=== PATIENT | female | born 1970 | race Caucasian/White ===

== ENCOUNTER → 2017-04-12 08:13 | Outpatient (CLI) | payer OTHER, SELFPAY ==
[2017-04-12 09:28] LABS: Hemoglobin A1c 5.9 % (4.2-6.3)
== END ==
PROVIDERS: Family Provider Internal Medicine; PCP Internal Medicine; Visit Provider Internal Medicine
DX: E53.8 Deficiency of other specified B group vitamins (principal); R73.02 Impaired glucose tolerance (oral)
CPT/HCPCS: 36415; 83036

== ENCOUNTER → 2017-09-20 09:34 | Outpatient (CLI) | payer OTHER, SELFPAY ==
[2017-09-20 10:20] LABS: Absolute Lymphocyte Count 1.93 X10^3/ul (0.83-4.51); Absolute Neutrophil Count 5.5 X10^3/uL (2.0-7.7); Basophil# 0.02 X10^3/uL; Basophil% 0.2 % (0-1); Eosinophil# 0.15 X10^3/uL; Eosinophils% 1.8 % (0-5); Hematocrit 41.6 % (37-47); Hemoglobin 14.6 g/dl (12.0-15.0); Lymphocyte # 1.93 X10^3/ul (4.0); Lymphocyte % 23.8 % (19-41); Mean Corp Hgb Conc 35.1 g/gl (32-36); Mean Corpuscular Hgb 30.6 pg (27.0-32.0); Mean Corpuscular Volume 87.2 fL (81-99); Mean Platelet Vol. 10.5 fl (6.2-12.0); Monocyte# 0.45 X10^3/uL; Monocyte% 5.5 % (0-10); Neutrophil # 5.54 X10^3/uL (2.7-7.7); Neutrophil % 68.5 % (47-70); Platelet Count 277 K/mm3 (150-450); RBC Distribution Width SD 40.2 fl (35.1-43.9); Red Blood Count 4.77 M/mm3 (4.2-5.4); White Blood Count 8.1 K/mm3 (4.4-11.0)
[2017-09-20 10:24] LABS: POSITIVE COUNT NO; POSITIVE DIFFERENTIAL NO; POSITIVE MORPHOLOGY NO
[2017-09-20 10:40] LABS: Microalbumin,Random Urine 16.8 mg/L (NO RANGE EST.); Microalbumin:Creatinine Ratio 19.9 mg/g CRE (<30 mg/g CRE)
[2017-09-20 10:53] LABS: ALB/GLOB Ratio 0.9 RATIO (0.9-2.4); AST(SGOT) 13 U/L (15-37); Alanine Aminotransfer ALT/SGPT 26 U/L (13-56); Albumin, Serum 3.9 g/dL (3.2-5.0); Alkaline Phosphatase 63 U/L (45-117); Anion Gap 7 (5-15); BUN 13 mg/dL (7-18); BUN/Creat Ratio 15.4 RATIO (10-20); Chloride 105 mmol/L (98-107); Cholesterol 182 mg/dL (200); Creatinine, Serum 0.85 mg/dL (0.55-1.02); EST Glomerular Filtration Rate 77 mL/min (>60); Est Glom Filt Rate - Afr Amer 93 mL/min (>60); Globulin 4.2 g/dL (2.2-4.2); Glucose 122 mg/dL (74-106); High Density Lipoprotein 48 mg/dL; Protein, Total 8.1 g/dL (6.4-8.2); Sodium Level 138 mmol/L (136-145); Triglycerides 98 mg/dL; Very Low Density Lipoprotein 20 mg/dL (5-40)
== END ==
PROVIDERS: Family Provider Internal Medicine; PCP Internal Medicine; Visit Provider Internal Medicine
DX: R73.03 Prediabetes (principal); E04.1 Nontoxic single thyroid nodule; Z13.220 Encounter for screening for lipoid disorders
CPT/HCPCS: 36415; 80053; 80061; 82043; 82570; 84443; 85025

== ENCOUNTER → 2017-10-11 08:23 | Outpatient (CLI) | payer OTHER, SELFPAY | PROVIDERS: Family Provider Internal Medicine; PCP Internal Medicine; Visit Provider Internal Medicine | DX: R73.02 Impaired glucose tolerance (oral) (principal); E53.8 Deficiency of other specified B group vitamins; E55.9 Vitamin D deficiency, unspecified ==

== ENCOUNTER → 2018-01-09 09:13 | Outpatient (CLI) | payer OTHER, SELFPAY ==
[2018-01-09 09:43] LABS: Absolute Lymphocyte Count 1.99 X10^3/ul (0.83-4.51); Absolute Neutrophil Count 5.3 X10^3/uL (2.0-7.7); Basophil# 0.02 X10^3/uL; Basophil% 0.2 % (0-1); Eosinophil# 0.21 X10^3/uL; Eosinophils% 2.6 % (0-5); Hematocrit 40.6 % (37-47); Hemoglobin 14.1 g/dl (12.0-15.0); Lymphocyte # 1.99 X10^3/ul (4.0); Lymphocyte % 24.7 % (19-41); Mean Corp Hgb Conc 34.7 g/gl (32-36); Mean Corpuscular Hgb 30.5 pg (27.0-32.0); Mean Corpuscular Volume 87.7 fL (81-99); Mean Platelet Vol. 10.3 fl (6.2-12.0); Monocyte# 0.53 X10^3/uL; Monocyte% 6.6 % (0-10); Neutrophil # 5.28 X10^3/uL (2.7-7.7); Neutrophil % 65.7 % (47-70); Platelet Count 276 K/mm3 (150-450); Red Blood Count 4.63 M/mm3 (4.2-5.4); White Blood Count 8.1 K/mm3 (4.4-11.0)
[2018-01-09 09:45] LABS: POSITIVE COUNT NO; POSITIVE DIFFERENTIAL NO; POSITIVE MORPHOLOGY NO
[2018-01-09 09:54] LABS: Microalbumin,Random Urine 5.4 mg/L (NO RANGE EST.); Microalbumin:Creatinine Ratio 9.5 mg/g CRE (<30 mg/g CRE)
[2018-01-09 10:12] LABS: Vitamin B12 549 pg/mL (211-911); Vitamin D,25 Hydroxy 25.1 ng/mL (29.95-100.01)
[2018-01-09 10:14] LABS: Hemoglobin A1c 6.3 % (4.2-6.3)
[2018-01-09 10:18] LABS: ALB/GLOB Ratio 0.9 RATIO (0.9-2.4); AST(SGOT) 8 U/L (15-37); Alanine Aminotransfer ALT/SGPT 22 U/L (13-56); Albumin, Serum 3.5 g/dL (3.2-5.0); Alkaline Phosphatase 63 U/L (45-117); Anion Gap 12 (5-15); BUN 9 mg/dL (7-18); BUN/Creat Ratio 11.6 RATIO (10-20); Calcium,Total 8.5 mg/dL (8.5-10.1); Chloride 105 mmol/L (98-107); Cholesterol 174 mg/dL (200); Creatinine, Serum 0.78 mg/dL (0.55-1.02); EST Glomerular Filtration Rate 85 mL/min (>60); Est Glom Filt Rate - Afr Amer 103 mL/min (>60); Globulin 3.7 g/dL (2.2-4.2); Glucose 108 mg/dL (74-106); High Density Lipoprotein 55 mg/dL; Potassium 3.9 mmol/L (3.5-5.1); Protein, Total 7.2 g/dL (6.4-8.2); Sodium Level 142 mmol/L (136-145); Thyroid Stim Hormone (TSH) 2.15 uIU/mL (0.358-3.74); Triglycerides 94 mg/dL; Very Low Density Lipoprotein 19 mg/dL (5-40)
== END ==
PROVIDERS: Family Provider Internal Medicine; PCP Internal Medicine; Referring Provider Internal Medicine; Visit Provider Internal Medicine
DX: E04.1 Nontoxic single thyroid nodule (principal); R73.03 Prediabetes; R73.02 Impaired glucose tolerance (oral); E55.9 Vitamin D deficiency, unspecified; E53.8 Deficiency of other specified B group vitamins; Z13.220 Encounter for screening for lipoid disorders
CPT/HCPCS: 36415; 80053; 80061; 82043; 82306; 82570; 82607; 83036; 84443; 85025

== ENCOUNTER → 2018-06-14 08:03 | Outpatient (CLI) | payer OTHER, SELFPAY ==
[2018-06-14 08:51] LABS: Absolute Lymphocyte Count 1.98 X10^3/ul (0.83-4.51); Absolute Neutrophil Count 3.5 X10^3/uL (2.0-7.7); Basophil# 0.02 X10^3/uL; Basophil% 0.3 % (0-1); Eosinophil# 0.24 X10^3/uL; Eosinophils% 3.8 % (0-5); Hematocrit 40.9 % (37-47); Hemoglobin 14.3 g/dl (12.0-15.0); Lymphocyte # 1.98 X10^3/ul (4.0); Lymphocyte % 31.7 % (19-41); Mean Corpuscular Hgb 30.3 pg (27.0-32.0); Mean Corpuscular Volume 86.7 fL (81-99); Mean Platelet Vol. 10.2 fl (6.2-12.0); Monocyte# 0.45 X10^3/uL; Monocyte% 7.2 % (0-10); Neutrophil # 3.54 X10^3/uL (2.7-7.7); Neutrophil % 56.8 % (47-70); POSITIVE COUNT NO; POSITIVE DIFFERENTIAL NO; POSITIVE MORPHOLOGY NO; Platelet Count 250 K/mm3 (150-450); RBC Distribution Width CV 12.9 % (11.6-14.6); RBC Distribution Width SD 41.3 fl (35.1-43.9); Red Blood Count 4.72 M/mm3 (4.2-5.4); White Blood Count 6.2 K/mm3 (4.4-11.0)
[2018-06-14 09:07] LABS: Microalbumin,Random Urine < 5.0 mg/L (NO RANGE EST.)
[2018-06-14 09:11] LABS: Hemoglobin A1c 5.8 % (4.2-6.3)
[2018-06-14 09:12] LABS: ALB/GLOB Ratio 1.2 RATIO (0.9-2.4); AST(SGOT) 15 U/L (15-37); Alanine Aminotransfer ALT/SGPT 35 U/L (13-56); Albumin, Serum 4.1 g/dL (3.2-5.0); Alkaline Phosphatase 46 U/L (45-117); Anion Gap 7 (5-15); BUN 15 mg/dL (7-18); BUN/Creat Ratio 19.1 RATIO (10-20); Calcium,Total 9.1 mg/dL (8.5-10.1); Chloride 106 mmol/L (98-107); Creatinine, Serum 0.79 mg/dL (0.55-1.02); EST Glomerular Filtration Rate 83 mL/min (>60); Est Glom Filt Rate - Afr Amer 101 mL/min (>60); Globulin 3.5 g/dL (2.2-4.2); Glucose 116 mg/dL (74-106); Protein, Total 7.6 g/dL (6.4-8.2); Sodium Level 141 mmol/L (136-145)
[2018-06-14 09:20] LABS: Vitamin B12 > 2000 pg/mL (211-911); Vitamin D,25 Hydroxy 44.6 ng/mL (29.95-100.01)
[2018-06-15 20:07] LABS: CHOLESTEROL TOTAL 211 mg/dL (100-199); HDL-C 55 mg/dL (>39); HDL-P TOTAL 36.4 umol/L (>=30.5); SMALL LDL-P 1267 nmol/L (<=527); TRIGLYCERIDES 132 mg/dL (0-149)
[2018-06-16 12:30] LABS: INSULIN RESISTANCE SCORE 75 (<=45); LDL SIZE 20.6 nm (>20.5); LDL-C 130 mg/dL (0-99); LDL-P 2008 nmol/L (<1000)
== END ==
PROVIDERS: Family Provider Internal Medicine; PCP Internal Medicine; Referring Provider Internal Medicine; Visit Provider Internal Medicine
DX: E11.9 Type 2 diabetes mellitus without complications (principal); E53.8 Deficiency of other specified B group vitamins; E55.9 Vitamin D deficiency, unspecified
CPT/HCPCS: 36415; 80053; 80061; 82043; 82306; 82570; 82607; 83036; 83704; 85025

== ENCOUNTER → 2018-06-20 10:35 | Outpatient (CLI) | payer OTHER, SELFPAY ==
--- NOTE | 2018-06-20 10:38 | US_ITS ---
STUDY: THYROID ULTRASOUND REASON FOR EXAM: Female, 47 years old. Follow-up nodule TECHNIQUE: Ultrasound evaluation of the thyroid was performed with real-time and static quick-scale imaging. COMPARISON: Ultrasound thyroid 01/18/2017, 12/26/2015, 12/12/2013. FINDINGS: RIGHT LOBE: 5.5 x 1.5 x 1.8 cm. Echotexture and vascularity are normal. Lower pole sharply circumscribed hypoechoic 6 x 6 x 4 mm nodule. Minimal posterior acoustic enhancement. Generally solid features. On prior imaging of 2016, the nodule measured 5.1 x 3.3 x 5.5 mm. On the prior study of 2015 the nodule measured 5.0 x 3.4 x 4.8 mm. Slightly increased in size. Otherwise similar morphology. Perinodular vascular flow. LEFT LOBE: 4.8 x 1.6 x 1.3 cm. Echotexture and vascularity are normal. Lower pole sharply circumscribed hypoechoic nodule, solid features, 11 x 7 x 7 mm. On prior imaging of 2016, the nodule measured 9.2 x 5.6 x 6.8 mm. On prior imaging of 2015, the nodule measured 9.3 x 6.4 x 7.2 mm. Very minimal increase in size compared to prior imaging. Perinodular and intranodular vascular flow. ISTHMUS: The isthmus measures 4 mm, normal echotexture. US/Thyroid IMPRESSION: Solitary thyroid nodules within the right and the left gland. Each is hypoechoic with sharply circumscribed margins, oval shape. Each has very slightly increased in size compared to prior imaging of 2015. Based on the [place] [employer] Guidelines for assessment of thyroid nodules, each falls into the Intermediate Suspicion Pattern. Based on size criteria, the left-sided thyroid nodule greatest dimension exceeds 1 cm. Ultrasound guided FNA biopsy is recommended. Electronically Signed: Dwain Granado MD at 9:09 EDT Tel , Service support ,
== END ==
PROVIDERS: Family Provider Internal Medicine; PCP Internal Medicine; Referring Provider Internal Medicine; Visit Provider Internal Medicine
DX: E01.0 Iodine-deficiency related diffuse (endemic) goiter (principal)
CPT/HCPCS: 76536

== ENCOUNTER → 2018-07-05 11:43 | Outpatient (CLI) | payer OTHER, SELFPAY ==
--- NOTE | 2018-07-05 11:45 | RAD_ITS ---
HISTORY: right foot pain. COMPARISON: None FINDINGS: XR Foot Min 3 Views: Right. SOFT TISSUES: No acute findings. No radiopaque foreign body. BONES/JOINTS: No acute fracture or subluxation. Normal alignment. Moderate osteoarthritis first MTP joint. No destructive changes observed. Small bidirectional calcaneal spurs. RAD/Foot min 3 Views IMPRESSION: Degenerative changes. No acute fracture or dislocation. at 0422 Reported and signed by: Prince Davila MD Electronically Signed: Prince Davila, at 4:21 EDT Tel , Service support ,
== END ==
PROVIDERS: Family Provider Internal Medicine; PCP Internal Medicine; Referring Provider Podiatrist; Visit Provider Podiatrist
DX: M20.11 Hallux valgus (acquired), right foot (principal)
CPT/HCPCS: 73630

== ENCOUNTER → 2018-09-11 08:12 | Outpatient (CLI) | payer OTHER, SELFPAY ==
[2018-09-11 08:51] LABS: Hemoglobin A1c 5.4 % (4.2-6.3)
[2018-09-12 14:08] LABS: CHOLESTEROL TOTAL 181 mg/dL (100-199); HDL-C 47 mg/dL (>39); HDL-P TOTAL 35.9 umol/L (>=30.5); SMALL LDL-P 399 nmol/L (<=527); TRIGLYCERIDES 100 mg/dL (0-149)
[2018-09-12 15:01] LABS: INSULIN RESISTANCE SCORE 67 (<=45); LDL SIZE 20.7 nm (>20.5); LDL-C 114 mg/dL (0-99); LDL-P 1286 nmol/L (<1000)
== END ==
PROVIDERS: Family Provider Internal Medicine; PCP Internal Medicine; Referring Provider Internal Medicine; Visit Provider Internal Medicine
DX: E11.9 Type 2 diabetes mellitus without complications (principal); Z13.220 Encounter for screening for lipoid disorders
CPT/HCPCS: 36415; 80061; 83036; 83704

== ENCOUNTER → 2019-01-31 08:58 | Outpatient (CLI) | payer OTHER, SELFPAY ==
[2018-10-11 07:43] VITALS: BMI 37.5
[2019-01-31 09:04] LABS: Bacteria 0 SEEN /hpf (None Seen); Mucous, Urine 0 SEEN /hpf (<or=2+); White Blood Cells 0 SEEN /hpf (0-5)
[2019-01-31 10:15] LABS: Absolute Lymphocyte Count 2.23 X10^3/uL (0.83-4.51); Absolute Neutrophil Count 4.9 X10^3/uL (2.0-7.7); Basophil# 0.04 X10^3/uL; Basophil% 0.5 % (0-1); Eosinophil# 0.31 X10^3/uL; Eosinophils% 3.9 % (0-5); Hematocrit 43.7 % (37-47); Hemoglobin 14.6 g/dL (12.0-15.0); Lymphocyte # 2.23 X10^3/ul (4.0); Lymphocyte % 27.8 % (19-41); Mean Corp Hgb Conc 33.4 g/dL (32-36); Mean Corpuscular Hgb 29.8 pg (27.0-32.0); Mean Corpuscular Volume 89.2 fL (81-99); Mean Platelet Vol. 10.3 fl (6.2-12.0); Monocyte# 0.45 X10^3/uL; Monocyte% 5.6 % (0-10); NRBC Flagged by Analyzer 0 % (0-5); Neutrophil # 4.94 X10^3/uL (2.7-7.7); Neutrophil % 61.7 % (47-70); Platelet Count 293 K/mm3 (150-450); RBC Distribution Width CV 12.7 % (11.6-14.6); RBC Distribution Width SD 41.2 fl (35.1-43.9)
[2019-01-31 10:25] LABS: Color, Urine Yellow (Yellow); Glucose, Dipstick Normal (Normal); Ketone-Dipstick Negative (Negative); Leukocyte Esterase-Dipstick Negative /ul (Negative); Nitrite-Dipstick Negative (Negative); Occult Blood-Urine 10 /ul (Negative); Protein-Dipstick Negative (Negative); Specific Gravity, Urine 1.015 (1.002-1.030); Urine Bilirubin Dipstick Negative (Negative); Urine Clarity Clear (Clear); Urine Urobilinogen Normal (Normal)
[2019-01-31 10:39] LABS: Red Blood Cells-Urine 0-5 SEEN /hpf (0-5); Squamous Epithelial Cells - UA 0-5 SEEN /hpf (5-10)
[2019-01-31 10:46] LABS: Vitamin B12 542 pg/mL (211-911)
[2019-01-31 11:09] LABS: Microalbumin,Random Urine 5.3 mg/L (NO RANGE EST.); Microalbumin:Creatinine Ratio 8.8 mg/g CRE (<30 mg/g CRE)
[2019-01-31 11:21] LABS: ALB/GLOB Ratio 1.1 RATIO (0.9-2.4); AST(SGOT) 10 U/L (15-37); Alanine Aminotransfer ALT/SGPT 25 U/L (13-56); Albumin, Serum 3.9 g/dL (3.2-5.0); Alkaline Phosphatase 69 U/L (45-117); Anion Gap 8 (5-15); BUN 16 mg/dL (7-18); BUN/Creat Ratio 18.6 RATIO (10-20); Calcium,Total 8.8 mg/dL (8.5-10.1); Chloride 104 mmol/L (98-107); Creatinine, Serum 0.86 mg/dL (0.55-1.02); EST Glomerular Filtration Rate 75 mL/min (>60); Est Glom Filt Rate - Afr Amer 91 mL/min (>60); Free T3 3.2 pg/mL (2.18-3.98); Globulin 3.6 g/dL (2.2-4.2); Glucose 108 mg/dL (74-106); Potassium 4.2 mmol/L (3.5-5.1); Protein, Total 7.5 g/dL (6.4-8.2); Sodium Level 138 mmol/L (136-145); T4 Free Direct 1.02 ng/dL (0.76-1.46); Thyroid Stim Hormone (TSH) 1.18 uIU/mL (0.358-3.74)
[2019-02-01 16:07] LABS: CHOLESTEROL TOTAL 186 mg/dL (100-199); HDL-C 68 mg/dL (>39); HDL-P TOTAL 46.5 umol/L (>=30.5); SMALL LDL-P 457 nmol/L (<=527); TRIGLYCERIDES 103 mg/dL (0-149)
[2019-02-02 16:39] LABS: INSULIN RESISTANCE SCORE 51 (<=45); LDL-C 97 mg/dL (0-99); LDL-P 1106 nmol/L (<1000)
== END ==
PROVIDERS: Family Provider Internal Medicine; PCP Internal Medicine; Referring Provider Internal Medicine; Visit Provider Internal Medicine
DX: E53.8 Deficiency of other specified B group vitamins (principal); E55.9 Vitamin D deficiency, unspecified; E04.1 Nontoxic single thyroid nodule; R73.01 Impaired fasting glucose
CPT/HCPCS: 36415; 80053; 80061; 81001; 82043; 82306; 82570; 82607; 83036; 83704; 84439; 84443; 84481; 85025

== ENCOUNTER 2019-02-23 06:06 | Day surgery (SDC) | payer OTHER, SELFPAY ==
[2018-10-11 07:43] VITALS: BMI 37.5
[2019-02-23] VITALS (7 sets, daily range): BP systolic 101–118; BP diastolic 66–77; PULSE 76–85; RESP 16; TEMP 36.1–36.8; O2SAT 95–100; BMI 36.1
[2019-02-23] MEDS: Lactated Ringers 1,000 ML 100 ML IV (06:33)
--- NOTE | 2019-02-23 07:22 | HP.PCM_ITS ---
Problem List (1) Bunion of right foot Status: Acute History of Present Illness Date of Admission: 02/23/19 The patient is a 48 year old F who is know to me from my private office where she complained of painful arthritic big toe joint. She had tried all conservative treatments including change in shoes, padding, NSAIDs, etc. No improvement. Past Medical History Medical History: Medical History (Last Reviewed 10/11/18 @ 07:51 by Hari Krueger MD) Diabetes E11.9 Multinodular goiter E04.2 Allergies No Known Allergies Allergy (Verified 02/23/19 06:16) Home Medications: Ambulatory Orders Medication Instructions Recorded Multivitamins,Therapeutic 1 tab PO DAILY 01/18/13 [Multivitamin] metformin 500 mg tablet 1,000 mg PO DAILY tab 10/11/18 Cholecalciferol (Vitamin D3) 5,000 unit PO DAILY 02/19/19 [Vitamin D3] Surgical History: Surgical History (Last Reviewed 10/11/18 @ 07:51 by Hari Krueger MD) History of Z98.891 history uterine ablation Smoking Status: Never smoker Tobacco Use: Non-smoker VTE Information - Inpt Only VTE Present on Admission: No Reason prophylaxis not ordered:: Treatment Not Indicated Patient Problems: Active and Suspected Problems (Last Reviewed 10/11/18 @ 07:51 by Hari Krueger MD) Bunion of right foot (Acute) Subjective: Pt complains of painful bunion which was not responsive to conservative treatments. Pt notices she cannot move the big toe and there is a large lump, making it painful in shoes. Objective: Decreased ROM to right first MTPJ with large dorsal exostosis. Pain is present. - Physical Exam Vitals/I&O's: Vital Signs Temp Pulse Resp BP Pulse Ox 97.6 F L 78 16 117/66 100 02/23/19 06:21 02/23/19 06:21 02/23/19 06:21 02/23/19 06:21 02/23/19 06:21 Oxygen Delivery Method Room Air Weight: 89.5 kg Body Mass Index (BMI) 36.1 General: Oriented x3, Cooperative, No apparent distress Extremities: Peripheral Pulses Normal Skin: No rashes, No breakdown Musculoskeletal: - - Mild bunion to right foot with moderate dorsal exostosis and decreased ROM to right first MTPJ. Pain is present. Neurological: Sensory exam intact to light touch and pain Current Medications Cefazolin Sodium 2 gm/ Sodium (Chloride) 110 mls @ 150 mls/hr IV PREOP ONE Stop: 02/23/19 07:58 Lactated Ringer's () 1,000 mls @ 100 mls/hr IV .Q10H SONAM Last Admin: 02/23/19 06:33 Dose: 100 mls/hr Documented by: Assessment/Plan All Active Problems (Last Reviewed 10/11/18 @ 07:51 by Hari Krueger MD) Bunion of right foot (Acute) 1. painful hallux valgus deformity right foot 2. hallux rigidus right foot Plan: After conservative measures have failed, pt wished to consider surgery. Risks, complications, alternative treatments were reviewed in detail. No guarantees given. Consent was reviewed and signed and pt is to present to [facility] for outpatient surgical intervention on 02/23/19.
[2019-02-23] MEDS: Cefazolin 2 GM in 0.9% Normal Saline 100 ML IV (07:30)
--- NOTE | 2019-02-23 07:30 | RAD_ITS ---
STUDY: X-RAY - RIGHT FOOT CLINICAL: Female, 48 years old. BUNIONECTOMY RIGHT FOOT IN OR with mini cram. -- 2 IMAGES 1 DOSE SUMMARY -- 0.0344 mGy 8 sec fluoro time TECHNIQUE: 2 intraoperative view(s) of the foot. COMPARISON: None. FINDINGS: Intraoperative imaging provided for bunionectomy. RAD/Foot 2 Views IMPRESSION: Intraoperative imaging provided for bunionectomy. Electronically Signed: Breezy Valles, at 9:33 EST , Service support ,
[2019-02-23] MEDS: Bacitracin 500 UNITS/GM PACKET (08:40)
--- NOTE | 2019-02-23 09:11 | PCM.OPRPT ---
Problem List (1) Bunion of right foot Status: Acute Report of Operation Date of Procedure: 02/23/19 Pre-Operative Diagnosis: Painful hallux valgus and hallux rigidus right foot Post-Operative Diagnosis: same Surgery/Procedure Performed:: sarah bunionectomy right foot Description of Surgical Findings:: Moderate hypertrophic bone to dorsal first MTPJ with cartilage denuding. Type of Anesthesia:: General/Regional - popliteal and saphenous nerve block Anesthesiologist: Isac Wynn Specimen's removed: bone Drains: none Estimated Blood Loss (mL): minimal Description of Procedure: Pt was brought to the OR and place on the operating table in the supine position. A pneumatic ankle tourniquet was placed on the pt's right ankle. Following sedation and local popliteal and saphenous block, the foot was scrubbed, prepped, and draped in the usual aspectic fashion. Attention was then taken to the dorsal medial right foot where approximately 6cm linear longitudinal incision was made medial and parallel to the extensor hallucis longus tendon. The incision was deepened through sharp and blunt dissection down to the level of the first met phalangeal joint. Then, a T type of capsulotomy was performed. There was noted to be moderate bone build up with a 1cm joint mouse. Utilizing a rongeur, the excessive bone was removed. The bone was yellowish showing cystic formation from chronic DJD. Next, attention was directed to the first intermetatarsal space where blunt dissection was continued down to the fibular sesamoid apparatus. A longitudinal capsulotomy was performed to loosen the sesamoid. Adductor hallucis tendon was left intact. Then medially, with a sagittal saw, the medial met head was smoothed as the geovanny prominence was reduced. A V type osteotomy with apex pointing distally and arms pointing proximal dorsally and proximal plantarly was performed at the first met head. With the position of the tibial sesamoid being more medially, the capital fragment was only shifted about 1mm. This osteotomy serves to shorten the first ray to allow for more joint motion. A .054 inch K wire was then driven for fixation oriented proximal medial dorsally to distal plantar laterally. The pin was noted to not protrude into the joint space. This was confirmed by intra operative C arm. The first met head area was then smoothed with a bone rasp. The wound was flushed with copious amounts of NSS. A medial capsulorraphy was then performed as about 2mm of capsule was removed. The periosteal and capsular structures were then reapproximated and coapted utilizing 3-0 vicryl sutures. The subcutaneous tissues were also reapproximated and coapted with 3-0 vicryl sutures. The skin was reapproximated and coapted with 4-0 monocryl. The proximal portion of the K wire was bent, trimmed, and rotated. The pin site was dressed with Bacitracin ointment. Steri strips helped to reinforce the incision. The incision was then dressed with xeroform and a sterile compressive dressing consisting of 4x4's, devon, and kerlix. Pin site was protected with more gauze. A 4 kam wrap was applied and the ankle tourniquet was released. A prompt hyperemic response was seen to all digits of the right foot. The pt tolerated the procedure and anesthesia well. She was transferred to the recover room with vital signs stable and vascular status intact to all digits of the right foot. A period of post operative monitoring will be performed and she will then be discharged home. She is to keep the dressing clean, dry, intact, wearing surgical shoe during ambulation. Remain NWB during ambulation with crutches or knee walker. Take pain medication as directed. Follow in Dr. Herndon's office or all post operative care and with any complications. Grafts/Implants Used: .054 K wire percutaneous - Complications none - Admit VTE Documentation VTE Present on Admission: No VTE Pharm Prophylaxis ordered?: No Reason prophylaxis not ordered:: Treatment Not Indicated
== END 2019-02-23 10:33 | disposition home or self-care (01) ==
LOC: SDC 06:06 → AC 06:08
PROVIDERS: Family Provider Internal Medicine; PCP Internal Medicine; Referring Provider Podiatrist; Visit Provider Podiatrist
PROC: (CPT 28292; principal; 2019-02-23 07:15)
DX: M21.611 Bunion of right foot (principal); M20.11 Hallux valgus (acquired), right foot; M20.21 Hallux rigidus, right foot; E11.9 Type 2 diabetes mellitus without complications; E04.2 Nontoxic multinodular goiter; Z79.84 Long term (current) use of oral hypoglycemic drugs
CPT/HCPCS: 28296; 73620; 76000; J7120; J2405

== ENCOUNTER → 2019-03-19 10:40 | Outpatient (CLI) | payer OTHER, SELFPAY ==
[2019-02-23 06:21] VITALS: BMI 36.1
--- NOTE | 2019-03-19 10:43 | RAD_ITS ---
STUDY: X-RAY - RIGHT FOOT CLINICAL: Postoperative for hallux valgus. TECHNIQUE: 3 view(s) of the foot. COMPARISON: Intraoperative images 02/23/2019. FINDINGS: There are posterior and plantar calcaneal enthesophytes. Otherwise, unremarkable talus, calcaneus, and tarsal bones. Normal visualized subtalar, talonavicular, calcaneocuboid, tarsal and tarsometatarsal articulations. There is an osteotomy of the first distal metatarsal bridged with a K wire. There are small marginal osteophytes and joint space narrowing of the metatarsophalangeal joint of the great toe. Normal tibial and fibular sesamoid bones. Normal interphalangeal joint of the great toe. Normal phalanges of the great toe. Normal second through fifth metatarsophalangeal joints. Normal interphalangeal joints and phalanges of the lesser toes. The soft tissue structures are unremarkable. RAD/Foot min 3 Views IMPRESSION: Arthrosis of the first metatarsophalangeal joint. Uncomplicated postoperative changes of the distal first metatarsal. Calcaneal enthesopathy. Electronically Signed: Bola Albarado MD at 14:10 EST Tel , Service support ,
== END ==
PROVIDERS: PCP Internal Medicine; Referring Provider Podiatrist; Visit Provider Podiatrist
DX: M20.11 Hallux valgus (acquired), right foot (principal)
CPT/HCPCS: 73630

== ENCOUNTER → 2019-04-03 12:02 | Outpatient (CLI) | payer OTHER, SELFPAY ==
[2019-02-23 06:21] VITALS: BMI 36.1
--- NOTE | 2019-04-03 12:15 | RAD_ITS ---
STUDY: X-RAY - RIGHT FOOT CLINICAL: Female, 48 years old. right foot pain, had surgery on foot 5 weeks ago TECHNIQUE: 3 view(s) of the foot. COMPARISON: 3 every 2019 FINDINGS: There is no acute fracture or dislocation. There are mild degenerative changes in the first metatarsophalangeal joints and pes planus. There is healing distal metatarsal osteotomy. K wire has been removed. Soft tissues are unremarkable. Appearance is similar to prior. RAD/Foot min 3 Views IMPRESSION: Expected healing of first distal metatarsal osteotomy. Electronically Signed: Yani Mancuso, at 20:10 EST Tel , Service support ,
== END ==
PROVIDERS: PCP Internal Medicine; Referring Provider Podiatrist; Visit Provider Podiatrist
DX: M79.671 Pain in right foot (principal)
CPT/HCPCS: 73630

== ENCOUNTER → 2019-10-15 10:10 | Outpatient (CLI) | payer OTHER, SELFPAY ==
[2019-02-23 06:21] VITALS: BMI 36.1
[2019-10-15 10:51] LABS: Basophil% 0.5 % (0-1); Eosinophils% 2.8 % (0-5); Hematocrit 41.5 % (37-47); Hemoglobin 13.9 g/dL (12.0-15.0); Lymphocyte % 28.9 % (19-41); Mean Corp Hgb Conc 33.5 g/dL (32-36); Mean Corpuscular Hgb 30.1 pg (27.0-32.0); Mean Corpuscular Volume 89.8 fL (81-99); Mean Platelet Vol. 10.2 fl (6.2-12.0); Microalbumin,Random Urine 6.2 mg/L (NO RANGE EST.); Microalbumin:Creatinine Ratio 13.8 mg/g CRE (<30 mg/g CRE); Monocyte% 4.9 % (0-10); Neutrophil % 62.5 % (47-70); Platelet Count 247 K/mm3 (150-450); RBC Distribution Width CV 12.8 % (11.6-14.6); RBC Distribution Width SD 41.4 fl (35.1-43.9); Red Blood Count 4.62 M/mm3 (4.2-5.4); White Blood Count 7.8 K/mm3 (4.4-11.0)
[2019-10-15 10:52] LABS: Absolute Lymphocyte Count 2.24 X10^3/uL (0.83-4.51); Absolute Neutrophil Count 4.8 X10^3/uL (2.0-7.7)
[2019-10-15 11:08] LABS: Vitamin B12 696 pg/mL (211-911)
[2019-10-15 11:16] LABS: Hemoglobin A1c 5.6 % (3.8-5.6)
[2019-10-15 11:25] LABS: ALB/GLOB Ratio 1.1 RATIO (0.9-2.4); AST(SGOT) 16 U/L (15-37); Alanine Aminotransfer ALT/SGPT 38 U/L (13-56); Alkaline Phosphatase 62 U/L (45-117); Anion Gap 6 (5-15); BUN 12 mg/dL (7-18); BUN/Creat Ratio 15.4 RATIO (10-20); Chloride 110 mmol/L (98-107); Creatinine, Serum 0.78 mg/dL (0.55-1.02); EST Glomerular Filtration Rate 84 mL/min (>60); Est Glom Filt Rate - Afr Amer 101 mL/min (>60); Free T3 2.6 pg/mL (2.18-3.98); Globulin 3.5 g/dL (2.2-4.2); Glucose 121 mg/dL (74-106); Potassium 3.8 mmol/L (3.5-5.1); Protein, Total 7.5 g/dL (6.4-8.2); Sodium Level 141 mmol/L (136-145); T4 Free Direct 0.97 ng/dL (0.76-1.46); Thyroid Stim Hormone (TSH) 2.13 uIU/mL (0.358-3.74)
== END ==
PROVIDERS: PCP Internal Medicine; Referring Provider Internal Medicine; Visit Provider Internal Medicine
DX: E53.8 Deficiency of other specified B group vitamins (principal); E04.1 Nontoxic single thyroid nodule; E11.9 Type 2 diabetes mellitus without complications; Z13.220 Encounter for screening for lipoid disorders; E55.9 Vitamin D deficiency, unspecified
CPT/HCPCS: 36415; 80053; 82043; 82306; 82570; 82607; 83036; 84439; 84443; 84481; 85025

== ENCOUNTER → 2020-11-10 09:44 | Outpatient (CLI) | payer OTHER, SELFPAY ==
[2020-11-10 11:25] LABS: Absolute Lymphocyte Count 2.29 X10^3/uL (0.83-4.51); Absolute Neutrophil Count 4.3 X10^3/uL (2.0-7.7); Basophil# 0.04 X10^3/uL; Basophil% 0.5 % (0-1); Eosinophil# 0.25 X10^3/uL; Eosinophils% 3.4 % (0-5); Hematocrit 43.9 % (37-47); Hemoglobin 14.6 g/dL (12.0-15.0); Lymphocyte # 2.29 X10^3/ul (0.83-4.51); Lymphocyte % 31.3 % (19-41); Mean Corp Hgb Conc 33.3 g/dL (32-36); Mean Corpuscular Hgb 29.3 pg (27.0-32.0); Mean Corpuscular Volume 88.2 fL (81-99); Mean Platelet Vol. 10.5 fl (6.2-12.0); Monocyte% 5.5 % (0-10); NRBC Flagged by Analyzer 0 % (0-5); Neutrophil % 58.9 % (47-70); Platelet Count 276 K/mm3 (150-450); RBC Distribution Width CV 12.8 % (11.6-14.6); RBC Distribution Width SD 41.4 fl (35.1-43.9); Red Blood Count 4.98 M/mm3 (4.2-5.4); White Blood Count 7.3 K/mm3 (4.4-11.0)
[2020-11-10 11:34] LABS: Microalbumin,Random Urine 5.3 mg/L (NO RANGE EST.); Microalbumin:Creatinine Ratio 9.6 mg/g CRE (<30 mg/g CRE)
[2020-11-10 11:52] LABS: Vitamin B12 446 pg/mL (211-911); Vitamin D,25 Hydroxy 28.8 ng/mL
[2020-11-10 11:58] LABS: AST(SGOT) 21 U/L (15-37); Alanine Aminotransfer ALT/SGPT 45 U/L (13-56); Albumin, Serum 3.8 g/dL (3.2-5.0); Alkaline Phosphatase 74 U/L (45-117); Anion Gap 8 (5-15); BUN 13 mg/dL (7-18); BUN/Creat Ratio 17.8 RATIO (10-20); Chloride 103 mmol/L (98-107); Cholesterol 214 mg/dL (200); Creatinine, Serum 0.73 mg/dL (0.55-1.02); EST Glomerular Filtration Rate 90 mL/min (>60); Est Glom Filt Rate - Afr Amer 109 mL/min (>60); Free T3 2.9 pg/mL (2.18-3.98); Glucose 116 mg/dL (74-106); High Density Lipoprotein 70 mg/dL; Protein, Total 7.8 g/dL (6.4-8.2); Sodium Level 139 mmol/L (136-145); T4 Free Direct 0.94 ng/dL (0.76-1.46); Thyroid Stim Hormone (TSH) 1.41 uIU/mL (0.358-3.74); Triglycerides 115 mg/dL; Very Low Density Lipoprotein 23 mg/dL (5-40)
== END ==
PROVIDERS: PCP Internal Medicine; Referring Provider Internal Medicine; Visit Provider Internal Medicine
DX: E11.9 Type 2 diabetes mellitus without complications (principal); E04.1 Nontoxic single thyroid nodule; E55.9 Vitamin D deficiency, unspecified; Z13.220 Encounter for screening for lipoid disorders
CPT/HCPCS: 36415; 80053; 80061; 82043; 82306; 82570; 82607; 83036; 84439; 84443; 84481; 85025

== ENCOUNTER → 2021-11-03 | Outpatient (CLI) | payer OTHER, SELFPAY ==
[2021-11-03 09:39] LABS: Microalbumin,Random Urine 8.3 mg/L (NO RANGE EST.); Microalbumin:Creatinine Ratio 18.3 mg/g CRE (<30 mg/g CRE)
[2021-11-03 09:44] LABS: Vitamin B12 475 pg/mL (211-911); Vitamin D,25 Hydroxy 35.8 ng/mL
[2021-11-03 10:05] LABS: Thyroid Stim Hormone (TSH) 1.81 uIU/mL (0.358-3.74)
== END | disposition home or self-care (01) ==
LOC: LAB 08:31
PROVIDERS: PCP Internal Medicine; Referring Provider Internal Medicine; Visit Provider Internal Medicine
DX: E55.9 Vitamin D deficiency, unspecified (principal); E11.9 Type 2 diabetes mellitus without complications; E78.5 Hyperlipidemia, unspecified; E04.1 Nontoxic single thyroid nodule; E53.8 Deficiency of other specified B group vitamins
CPT/HCPCS: 36415; 82043; 82306; 82570; 82607; 82746; 84443

== ENCOUNTER → 2022-07-05 | Outpatient (CLI) | payer OTHER, SELFPAY ==
[2022-07-14 10:09] LABS: HPV APTIMA, High Risk Negative (Negative)
== END | disposition home or self-care (01) ==
PROVIDERS: PCP Internal Medicine; Visit Provider Obstetrics & Gynecology
DX: Z12.4 Encounter for screening for malignant neoplasm of cervix (principal)
CPT/HCPCS: 87624; 88175; G0145

== ENCOUNTER → 2022-07-07 | Outpatient (CLI) | payer OTHER, SELFPAY ==
--- NOTE | 2022-07-07 07:41 | BI_ITS ---
MAMMOGRAPHY - BILATERAL SCREENING REASON FOR EXAM: Female, 51 years old. Routine annual screening examination. PERTINENT HISTORY: Non-contributory. TECHNIQUE: Digital bilateral breast liza (3D mammographic acquisition) in the CC and MLO projections. 2-D mediolateral oblique (MLO) and craniocaudad (CC) views of both breasts were obtained. CAD: Full Field Digital Mammography with Computer Added Detection was performed. COMPARISON: Mammogram from 12/26/2015, 12/12/2013. FINDINGS: Breast Composition: Portions of the right breast are extremely dense which lowers sensitivity of mammography. The remainder of the breast is heterogeneously dense, which may obscure small masses. There are no dominant masses or suspicious calcifications. Stable asymmetric dense breast tissue in the right upper outer breast when compared to the left. No other significant abnormalities are identified. There has been no significant change since the prior study. BI/SCRN MAMM (CAD)W/LIZA BILAT IMPRESSION: Stable bilateral screening mammogram. Yearly follow-up mammogram recommended. (A) ASSESSMENT CATEGORY: BIRADS Category 2: Benign. A letter regarding these results will be sent to the patient by the facility within 30 days. Approximately 10% of breast cancers are not detected by mammography. A normal mammogram should not delay biopsy of a clinically suspicious abnormality. Electronically Signed: Stevie Pollard DO at 10:01 EDT ,
== END | disposition home or self-care (01) ==
LOC: OPBI 07:39
PROVIDERS: PCP Internal Medicine; Referring Provider Obstetrics & Gynecology; Visit Provider Obstetrics & Gynecology
DX: Z12.31 Encounter for screening mammogram for malignant neoplasm of breast (principal)
CPT/HCPCS: 77063; 77067

== ENCOUNTER → 2022-08-10 | Outpatient (CLI) | payer OTHER, SELFPAY ==
[2022-08-10 13:00] LABS: Prothrombin Time (Protime)PT. 12.7 SECONDS (11.7-14.9)
[2022-08-10 13:07] LABS: Erythrocyte Sedimentation Rate 23 mm/hr (0-30)
[2022-08-10 13:09] LABS: Absolute Lymphocyte Count 2.76 X10^3/uL (0.83-4.51); Absolute Neutrophil Count 5.7 X10^3/uL (2.0-7.7); Basophil# 0.04 X10^3/uL; Basophil% 0.4 % (0-1); Eosinophil# 0.19 X10^3/uL; Eosinophils% 2.1 % (0-5); Hematocrit 43.9 % (37-47); Hemoglobin 14.8 g/dL (12.0-15.0); Lymphocyte # 2.76 X10^3/ul (0.83-4.51); Lymphocyte % 30.1 % (19-41); Mean Corp Hgb Conc 33.7 g/dL (32-36); Mean Corpuscular Hgb 29.8 pg (27.0-32.0); Mean Corpuscular Volume 88.3 fL (81-99); Mean Platelet Vol. 10.6 fl (6.2-12.0); Monocyte# 0.41 X10^3/uL; Monocyte% 4.5 % (0-10); NRBC Flagged by Analyzer 0 % (0-5); Neutrophil # 5.74 X10^3/uL (2.7-7.7); Neutrophil % 62.7 % (47-70); Platelet Count 300 K/mm3 (150-450); RBC Distribution Width CV 13.1 % (11.6-14.6); RBC Distribution Width SD 42.3 fl (35.1-43.9); Red Blood Count 4.97 M/mm3 (4.2-5.4); White Blood Count 9.2 K/mm3 (4.4-11.0)
[2022-08-10 14:09] LABS: AST(SGOT) 37 U/L (15-37); Alanine Aminotransfer ALT/SGPT 85 U/L (13-56); Albumin, Serum 3.9 g/dL (3.2-5.0); Alkaline Phosphatase 77 U/L (45-117); Anion Gap 9 (5-15); BUN 9 mg/dL (7-18); BUN/Creat Ratio 11.8 RATIO (10-20); CRP 8.25 mg/L (0.0-3.0); Calcium,Total 9.4 mg/dL (8.5-10.1); Chloride 107 mmol/L (98-107); Creatinine, Serum 0.76 mg/dL (0.55-1.02); EST Glomerular Filtration Rate 85 mL/min (>60); Est Glom Filt Rate - Afr Amer 103 mL/min (>60); Ferritin 571 ng/mL (8-252); Globulin 3.9 g/dL (2.2-4.2); Glucose 114 mg/dL (74-106); HIV - WCH Non-Reactive (Nonreactive); LDH 205 U/L (84-246); Potassium 3.9 mmol/L (3.5-5.1); Protein, Total 7.8 g/dL (6.4-8.2); Sodium Level 138 mmol/L (136-145)
[2022-08-10 15:54] LABS: Hemoglobin A1c 6.2 % (3.8-5.6)
[2022-08-11 14:09] LABS: Anti-Centromere B Ab <0.2 AI (0.0-0.9); Anti-Chromatin <0.2 AI (0.0-0.9); Anti-Jo <0.2 AI (0.0-0.9); Anti-Mitochondrial AB <20.0 Units (0.0-20.0); Anti-Scleroderma-70 AB <0.2 AI (0.0-0.9); Anti-dsDNA Ab <1 IU/mL (0-9); RNP Ab <0.2 AI (0.0-0.9); SJOGREN'S Anti-SS-A test < 0.2 AI (0.0-0.9); SJOGREN'S Anti-SS-B test < 0.2 AI (0.0-0.9); Smith Ab <0.2 AI (0.0-0.9)
[2022-08-12 14:09] LABS: AFP, Tumor Marker 13.8 ng/mL (0.0-9.2); Angiotensin Convert Enzyme 53 U/L (14-82); Anti-Smooth Muscle ABS 3 Units (0-19); Ceruloplasmin 26.6 mg/dL (19.0-39.0); Copper, Serum or Plasma 119 ug/dL (80-158); Cytoplasmic Ab (C-ANCA) <1:20 titer (Neg:<1:20); HEPATITIS B SURFACE AG Negative (Negative); Haptoglobin 157 mg/dL (33-346); Hep C Antibodies Non Reactive (Non Reactive); Hepatitis A IgM Antibody Negative (Negative); Hepatitis B Core AB IgM Negative (Negative); Perinuclear Ab (P-ANCA) <1:20 titer (Neg:<1:20)
== END | disposition home or self-care (01) ==
LOC: LAB 11:41
PROVIDERS: PCP Internal Medicine; Referring Provider Obstetrics & Gynecology; Visit Provider Obstetrics & Gynecology
DX: R74.01 Elevation of levels of liver transaminase levels (principal)
CPT/HCPCS: 36415; 80053; 80074; 82105; 82140; 82164; 82390; 82525; 82728; 83010; 83036; 83516; 83615; 85025; 85610; 85652; 86140; 86225; 86235; 86256; 86703

== ENCOUNTER → 2022-08-12 | Outpatient (CLI) | payer OTHER, SELFPAY ==
--- NOTE | 2022-08-12 07:53 | US_ITS ---
STUDY: THYROID ULTRASOUND REASON FOR EXAM: Female, 51 years old. Thyroid nodule TECHNIQUE: Ultrasound evaluation of the thyroid was performed with real-time and static quick-scale imaging. COMPARISON: Comparison is made with prior study dated June 20, 2018. FINDINGS: RIGHT LOBE: The right lobe of the thyroid gland is mildly enlarged and measures 5.1 cm x 1.6 cm x 1.8 cm. There is a homogeneous echotexture. There is a 6 mm x 6 mm x 5 mm well-defined hypoechoic solid nodule in the lower pole. There has been essentially no change. LEFT LOBE: The left lobe of the thyroid gland is mildly enlarged and measures 5 cm x 1.6 x 1.8 cm. There is a homogeneous echotexture. Stable 1.1 cm x 0.8 cm x 0.8 cm cystic nodule in the lower pole. Stable 4 mm x 5 mm x 2 mm solid nodule in the midpole. ISTHMUS: The isthmus is slightly enlarged and measures 5 mm. The regional lymph nodes are normal. US/Thyroid IMPRESSION: Stable bilateral thyroid nodules. Mild thyroid enlargement. Electronically Signed: Breezy Valles MD at 13:55 EDT ,
--- NOTE | 2022-08-12 07:53 | US_ITS ---
STUDY: ABDOMINAL ULTRASOUND - RIGHT UPPER QUADRANT REASON FOR VISIT: Female, 51 years old elevated liver enzymes TECHNIQUE: Ultrasound evaluation of the right upper quadrant was performed with real-time and static quick-scale imaging. TECHNICAL QUALITY: Adequate. COMPARISON: None. FINDINGS: Liver: The liver measures 17.9 cm. There is increased echogenicity consistent with fatty infiltration. The bile ducts are within normal limits. There is hepatic color flow. The direction of portal flow is hepatopetal. There is no demonstrated mass lesion. Gallbladder: Normal distended gallbladder. The gallbladder wall measures 2 mm. There is a negative sonographic Casey''s sign. There is no pericholecystic fluid. There are no gallstones. Common Bile Duct (C.B.D.): The common bile duct measures 4 mm. Pancreas: Normal size of the head, body and tail of the pancreas. There is normal echogenicity of the pancreas. There is no demonstrated pancreatic mass or cyst. Right Kidney: Normal size of the right kidney. The right kidney measures 11.2 cm x 6.3 cm x 5.3 cm. Normal renal cortex. The right cortex measures 1.1 cm. There is no demonstrated renal mass or cyst. There is no right hydronephrosis. There is a 1.2 cm x 1.3 cm x 1.3 cm nonobstructive right renal access. US/Abdomen Limited IMPRESSION: Fatty infiltration of the liver. Borderline hepatomegaly. 1.2 cm x 1.3 cm x 1.3 cm nonobstructive right intrarenal calculus. Electronically Signed: Breezy Valles MD at 13:53 EDT ,
== END | disposition home or self-care (01) ==
LOC: US 07:52
PROVIDERS: PCP Internal Medicine; Referring Provider Obstetrics & Gynecology; Visit Provider Obstetrics & Gynecology
DX: R74.01 Elevation of levels of liver transaminase levels (principal); E04.1 Nontoxic single thyroid nodule
CPT/HCPCS: 76536; 76705

== ENCOUNTER → 2022-11-08 | Outpatient (CLI) | payer OTHER, SELFPAY | END | disposition home or self-care (01) | LOC: PSN 07:16 | PROVIDERS: PCP Internal Medicine; Referring Provider Obstetrics & Gynecology; Visit Provider Obstetrics & Gynecology | DX: E66.8 Other obesity (principal); Z68.41 Body mass index [BMI] 40.0-44.9, adult | CPT/HCPCS: 93005 ==

== ENCOUNTER → 2023-01-17 | Outpatient (CLI) | payer OTHER, SELFPAY | END | disposition home or self-care (01) | LOC: SL 13:13 | PROVIDERS: PCP Internal Medicine; Referring Provider Nurse Practitioner Acute Care; Visit Provider Nurse Practitioner Acute Care | DX: G47.10 Hypersomnia, unspecified (principal) | CPT/HCPCS: 95806 ==

== ENCOUNTER → 2023-02-21 | Outpatient (CLI) | payer OTHER, SELFPAY ==
[2023-02-21 16:06] LABS: CRP 7.19 mg/L (0.0-3.0); Ferritin 471 ng/mL (8-252); Iron 60 ug/dL (50-170); Iron Binding Capacity,Total 286 ug/dL (250-450); LDH 175 U/L (84-246)
[2023-02-24 21:07] LABS: Anti-Centromere B Ab <0.2 AI (0.0-0.9); Anti-Chromatin <0.2 AI (0.0-0.9); Anti-Jo <0.2 AI (0.0-0.9); Anti-Scleroderma-70 AB <0.2 AI (0.0-0.9); Anti-dsDNA Ab <1 IU/mL (0-9); Beef <0.10 kU/L (Class 0); Chocolate <0.10 kU/L (Class 0); Codfish <0.10 kU/L (Class 0); Corn <0.10 kU/L (Class 0); Egg, Whole <0.10 kU/L (Class 0); Milk (Cow) <0.10 kU/L (Class 0); Mussels <0.10 kU/L (Class 0); Peanut <0.10 kU/L (Class 0); Pork 0.13 kU/L (Class 0/I); RNP Ab <0.2 AI (0.0-0.9); SJOGREN'S Anti-SS-A test < 0.2 AI (0.0-0.9); SJOGREN'S Anti-SS-B test < 0.2 AI (0.0-0.9); Salmon <0.10 kU/L (Class 0); Shrimp <0.10 kU/L (Class 0); Smith Ab <0.2 AI (0.0-0.9); Soybean <0.10 kU/L (Class 0); Tuna <0.10 kU/L (Class 0); Wheat <0.10 kU/L (Class 0)
[2023-02-25 12:09] LABS: Anti-Smooth Muscle ABS 3 Units (0-19); Endomysial Antibody IgA Negative (Negative); IgG, Quant 791 mg/dL (586-1602); Immunoglobulin A 199 mg/dL (87-352); Immunoglobulin E 22 IU/mL (6-495); Immunoglobulin G, Subclass 1 349 mg/dL (248-810); Immunoglobulin G, Subclass 2 310 mg/dL (130-555); Immunoglobulin G, Subclass 3 41 mg/dL (15-102); Immunoglobulin G, Subclass 4 36 mg/dL (2-96); Immunoglobulin M 59 mg/dL (26-217); t-Transglutaminase IgA <2 U/mL (0-3)
== END | disposition home or self-care (01) ==
LOC: LAB 14:15
PROVIDERS: PCP Internal Medicine; Referring Provider Internal Medicine Gastroenterology; Visit Provider Internal Medicine Gastroenterology
DX: Z12.11 Encounter for screening for malignant neoplasm of colon (principal); R74.01 Elevation of levels of liver transaminase levels
CPT/HCPCS: 36415; 82728; 82784; 82785; 82787; 83516; 83540; 83550; 83615; 86003; 86005; 86140; 86225; 86235; 86255

== ENCOUNTER 2023-03-28 09:48 | Day surgery (SDC) | payer OTHER, SELFPAY ==
[2023-03-28 10:06] VITALS: BP 127/79; PULSE 89; RESP 18; TEMP 36.8; O2SAT 100; BMI 35.9
--- NOTE | 2023-03-28 10:13 | HP.PCM_ITS ---
History and Physical Date of Admission: 03/28/23 52 F who presents to the office today for Gynecology established with recommendation of Adipex use for weight loss. ? Biochemical 08.10.22 CBC, ESR, haptoglobin, coag, CMP, LDH, ceruloplasmin, ENEIDA, copper, ANCA, VARINDER comp, AMA, ASM, hepatitis, HIV without pertinent abnormality. ? A1c H6.2 (metformin), ferritin H571, AST 37-ALT V75-RX38, CRP H8.25, AFP H13.8? FIB 4 0.70 ? US 08.12.22 hepatic measurement 17.9cm with fatty infiltration; nonobstructive intrarenal calculus. *BGI established 02.21.23 during workup with gynecology for weight loss and during workup it was noted that she has elevated LFT. Also in need for screening colonoscopy. ROS Const Constitutional: No anorexia, fatigue, fever(s), weight change or sleep problems Eyes Eyes: No change in vision ENT ENT: No abnormal hearing, difficulty swallowing, mouth lesions, tongue swelling or throat swelling Resp Respiratory: No cough or shortness of breath Cardio Cardiology: No chest pain at rest, chest pain with exertion, shortness of breath or dyspnea on exertion Gastro GI: No difficulty swallowing Genitourinary-Female: No difficulty urinating or burning urination Musc Musculoskeletal: No joint pain, joint swelling, muscle weakness or decreased muscle mass Skin Skin: No hair loss in leg, yellowing of the eye, itchy eyes, rash, skin ulcer or skin swelling Neuro Neurology: No abnormal hearing, abnormal movements, confusion, unsteady gait/balance or memory loss Psych Psychiatric: No anxiety, No confusion and No memory loss Endo Endocrine: No fatigue or weight change Aller/Imm Allergy/Immunologic: No itchy eyes, throat swelling or tongue swelling Jose Eduardo/Lymp Hematologic/Lymphatic: No easy bleeding, easy bruising or enlarged lymph nodes Exam Const General: cooperative and comfortable Nutritional Appearance: average body habitus and well nourished HENMT Head: normal to inspection Ears: hearing grossly normal bilaterally Nose: external nose normal Face and sinus: normal facial exam Mouth: oral mucosae normal Throat: posterior oropharynx normal Eyes General: appearance normal, both eyes and all related structures Neck Neck: normal visual inspection Chest Chest palpation & inspection: normal inspection of the chest and normal palpation of entire chest wall Resp Effort & Inspection: normal respiratory effort Auscultation: Bilateral: Clear to Auscultation Cardio Palpation: normal PMI Rate: regular rate Rhythm: regular rhythm GI Inspection: normal to inspection Auscultation: normal bowel sounds Percussion: normal to percussion Palpation: no hepatosplenomegaly Skin General: no rashes or lesions noted Neuro General: patient alert Extrem General: normal to inspection Psych Affect: normal affect Quality Reporting Tobacco Screening ([facility] 138) Smoking Status: Never smoker Assessment and Plan Assessment and Plan (1) Elevated ALT measurement: Status: Chronic Plan: The most likely cause for her elevated ALT is secondary to nonalcoholic fatty liver disease. She has been checked for chronic hepatitis C and she does not drink any alcohol. Typically you would have a 2 1 ratio of AST to ALT and it is very sensitive for alcohol induced liver injury. 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 Her daughter has celiac disease which also can cause an elevation in ALT to AST ratio greater than 1. On physical lamination she does not have any stigmata of chronic liver disease including no jaundice, ascites, peripheral edema, hepatosplenomegaly, telangiectasias, palmar erythema or clubbing. She also has no sign of congestive heart failure which can cause elevated liver enzymes by passive congestion. She does not have any abdominal pain which can cause elevated AST and ALT secondary to thrombotic event. I explained to her lastly it can be elevated secondary to muscle injury. I am not recommending any treatment at this time for nonalcoholic fatty liver disease until we have a biochemical workup and imaging. She will need noninvasive testing such as calculation of her fib 4 score and elastography. She will need invasive testing such as biochemical workup for such autoimmune diseases. She is okay with this plan. (2) Encounter for screening for malignant neoplasm of colon: Status: Chronic Plan: She was explained alternatives, risk, benefits including outstanding bleeding, infection, sepsis, perforation, need for emergent urgent . She will have an ASA of 2. Orders: Orders Colonoscopy 03/28/23 R74.01 - Elevation of levels of liver transaminase levels, Z12.11 - Encounter for screening for malignant neoplasm of colon Iron+Iron Binding Capacity Today R74.01 - Elevation of levels of liver transaminase levels, Z12.11 - Encounter for screening for malignant neoplasm of colon Ferritin Today R74.01 - Elevation of levels of liver transaminase levels, Z12.11 - Encounter for screening for malignant neoplasm of colon CRP Today R74.01 - Elevation of levels of liver transaminase levels, Z12.11 - Encounter for screening for malignant neoplasm of colon Immunoglobulins G/A/M/E Today R74.01 - Elevation of levels of liver transaminase levels, Z12.11 - Encounter for screening for malignant neoplasm of colon Celiac Disease Profile Today R74.01 - Elevation of levels of liver transaminase levels, Z12.11 - Encounter for screening for malignant neoplasm of colon IgG Subclasses Today R74.01 - Elevation of levels of liver transaminase levels, Z12.11 - Encounter for screening for malignant neoplasm of colon VARINDER Comprehensive Panel Today R74.01 - Elevation of levels of liver transaminase levels, Z12.11 - Encounter for screening for malignant neoplasm of colon LDH Today R74.01 - Elevation of levels of liver transaminase levels, Z12.11 - Encounter for screening for malignant neoplasm of colon ABD Limited w/ Elastography Today R74.01 - Elevation of levels of liver transaminase levels, Z12.11 - Encounter for screening for malignant neoplasm of colon Allergen, Food Profile 14 Today R74.01 - Elevation of levels of liver transamina se levels, Z12.11 - Encounter for screening for malignant neoplasm of colon Anti-Smooth Muscle ABS Today R74.01 - Elevation of levels of liver transaminase levels, Z12.11 - Encounter for screening for malignant neoplasm of colon I have examined the patient and the H&P has been reviewed. There are no clinical changes since date of exam.
[2023-03-28] MEDS: Lactated Ringers 1,000 ML 15 ML IV (10:17)
--- OUTSIDE RECORDS SUMMARY | 2023-03-28 10:19 | XMS RPT_ITS | CCD ---
Author Name Unknown Address [address] [place] [address] Organization [facility] Care Team Providers Care Automotive Engineering Technician Name Role Phone Jeanne Archibald Unavailable Umberto Mckeon Unavailable PeabodyIII, Hari P Unavailable Fast, Neisha A Unavailable Andrew Rojas Unavailable Zohra Antony Unavailable Unavailable Unavailable Unavailable Jeanne Archibald Unavailable Umberto Mckeon Unavailable PeabodyIII, Hrai P Unavailable Fast, Neisha A Unavailable Andrew Rojas Unavailable Alexis Carrillo Unavailable Ericka Herndon Unavailable Oliverio Duran Unavailable Jaguar Mcleod Unavailable Unavailable Tony, merlin Unavailable Unavailable Unavailable Unavailable Cecile Shannon Unavailable Unavailable Messenger, Zohra Unavailable Unavailable Pati III, Hari P Unavailable Gravius, Glenna Unavailable Unavailable Ericka Herndon Unavailable Gravius, Glenna Unavailable Unavailable Slarb, Elizabeth Unavailable Unavailable Messenger, Zohra Unavailable Unavailable Jeanne Archibald DO Unavailable Dr. Umberto Mckeon Unavailable Hari Daugherty MD Unavailable Fast DO, Neisha A Unavailable Pati QUAN MD , Hari Carney Unavailable Dr. Andrew Rojas Unavailable Dr. Alexis Carrillo Unavailable [phone] Oliverio Duran DO Unavailable Wendy SLITTER CUT OFF OPERATOR, Glenna Unavailable Unavailable Arpan RN, Zohra Unavailable Unavailable Slatrent CLIFTONN, Elizabeth Unavailable Unavailable Manrichard SLITTER CUT OFF OPERATOR, Floresita Unavailable Unavailable Unavailable Unavailable Jeanne Archibald DO Unavailable Friend, Dr. Vaughn Unavailable Ad CLIFTONN, Jaguar Unavailable Unavailable Windy REAL, Sim Unavailable Unavailable Jeanne Archibald DO Attending Unavailable Fast DO, Neisha A Referring Unavailable Dragan Jeanne DEGROOT Consulting Unavailable Medications Completed/Discontinued Medications Medication Drug Class(es) Dates Sig (Normalized) Sig (Original) [id number] 200 actuat albuterol 0.09 mg/actuat metered dose inhaler (18 sources) beta2-Adrenergic Agonist Start: 11-22-2013 End: 12-06-2013 PROVENTIL HFA, 108 (90 Base)MCG/ACT (Inhalation Aerosol Solution) 2 (two) Aerosol Soln q 6 hr prn for 0 days Quantity: 1 {Inhaler} Refills: 0 Ordered: 06-Dec-2013 GABY Hernandez LPN Start : 22-Nov-2013 End : 06-Dec-2013 Inactive Problems Active Problems Problem Classification Problem Date Documented Date Episodic/Chronic Acquired foot deformities (20 sources) Bunion; Translations: [Bunion] 06-15-2018 Episodic Acute bronchitis (20 sources) Acute bronchitis; Translations: [Bronchitis, acute] Resolved: 09-27-2011 11-19-2014 Episodic Administrative/social admission (20 sources) Administrative reason for encounter; Translations: [Counseling procedure with explicit context] Resolved: 12-06-2013 01-07-2015 Episodic Chronic obstructive pulmonary disease and bronchiectasis (20 sources) Bronchitis; Translations: [Bronchitis] Resolved: 01-15-2014 08-31-2016 Episodic Past or Other Problems Problem Classification Problem Date Documented Da te Episodic/Chronic Chronic obstructive pulmonary disease and bronchiectasis (20 sources) Chronic obstructive pulmonary disease and bronchiectasis Coronary atherosclerosis and other heart disease (20 sources) Coronary atherosclerosis and other heart disease Immunizations and screening for infectious disease (18 sources) Need for prophylactic vaccination and inoculation against influenza; Translations: [NEED FOR PROPHYLACTIC VACCINATION AND INOCULATION AGAINST INFLUENZA (V04.81) (Renamed from NEED FOR PROPHYLACTIC VACCINATION AND INOCULATION AGAINST INFLUENZA)] Resolved: 12-06-2013 12-06-2013 Episodic Other gastrointestinal disorders (18 sources) Dysphagia, unspecified; Translations: [Dysphagia, unspecified dysphagia] Resolved: 12-08-2015 08-31-2016 Episodic Results Test Name Value Interpretation Reference Range Facil ity Vital Signs Date Time Vital Sign Value Performing Clinician Facility 11-05-2021 07:09-0400 Body height 158.75 cm [facility] Work Phone: 11-05-2021 07:09-0400 Body mass index (BMI) [Ratio] 39.1 kg/m2 [facility]; [facility] Work Phone: 11-05-2021 07:09-0400 Body surface area Derived from formula 1.99 m2 [facility]; [facility] Work Phone: 11-05-2021 07:09-0400 Body temperature 98.7 [degF] [facility] Work Phone: 11-05-2021 07:09-0400 Body weight 98.54 kg [facility]; [facility] Work Phone: 11-05-2021 07:09-0400 Diastolic blood pressure 80 mm[Hg] [facility]; [facility] Work Phone: Encounters Encounter Date Encounter Type Care Provider Facility Start: 11-13-2021 End: 11-13-2021 Annotation/Addendum Jeanne Archibald DO Work Phone: [facility] Start: 11-05-2021 ambulatory Jeanne Archibald DO [facility] Start: 11-05-2021 End: 11-09-2021 Patient encounter status Glenna Nguyen CMA [facility]; [facility] Work Phone: Start: 11-05-2021 End: 11-09-2021 Periodic preventive med est patient 40-64yrs Jeanne Hollandon DO Work Phone: [facility] Start: 10-08-2021 End: 10-08-2021 Lab Order Jeanne Archibald DO Work Phone: [facility] Start: 11-10-2020 End: 11-10-2020 Patient encounter status Jeanne Archibald DO Work Phone: [facility]; [facility] Work Phone: Start: 11-10-2020 End: 11-10-2020 Periodic preventive med est patient 40-64yrs Jeanne Archibald DO Work Phone: [facility] Start: 11-04-2020 End: 11-21-2020 Phone Encounter Jeanne Archibald DO Work Phone: [facility] Start: 10-18-2019 End: 10-18-2019 Office outpatient visit 15 minutes Jeanne Dragan [facility] Start: 10-18-2019 End: 10-18-2019 Patient encounter status Jeanne Archibald DO Work Phone: [facility]; [facility] Work Phone: Start: 09-19-2019 End: 09-19-2019 Lab Order Jeanne Archibald [facility] Start: 01-31-2019 End: 01-31-2019 Office outpatient new 30 minutes Jeanne Dragan [facility] Start: 10-03-2018 End: 10-03-2018 Phone Encounter Jeanne Hollandon [facility] Start: 09-22-2018 End: 09-22-2018 Office outpatient visit 25 minutes Jeanne Dragan [facility] Start: 06-27-2018 End: 06-27-2018 Phone Encounter Jeanne Dragan [facility] Start: 06-26-2018 Review Jeanne Archibald [facility] Start: 06-26-2018 End: 06-26-2018 Phone Encounter Jeanne Archibald [facility] Start: 06-22-2018 End: 06-22-2018 Phone Encounter Jeanne Archibald [facility] Start: 06-15-2018 End: 06-15-2018 Annotation/Addendum Jeanne Archibald [facility] Start: 06-15-2018 End: 06-15-2018 Annotation/Addendum Jeannegab Archibald [facility] Assistant [facility] Medicine Start: 06-15-2018 End: 06-15-2018 Office outpatient visit 25 minutes Jeanne Dragan [facility] Start: 01-26-2018 End: 01-26-2018 Office outpatient visit 15 minutes Jeanne Dragan [facility] Start: 09-22-2017 End: 09-22-2017 Office outpatient visit 15 minutes Jeanne Dragan [facility] Start: 05-19-2017 End: 05-19-2017 Office outpatient visit 15 minutes Jeanne Dragan [facility] Start: 04-13-2017 End: 04-13-2017 Lab Order Jeanne Dragan [facility] Administrative Assistant [facility] Start: 03-08-2017 End: 03-08-2017 Phone Encounter Jeanne Archibald [facility] Start: 01-04-2017 End: 01-04-2017 Office outpatient visit 15 minutes Jeanne Dragan [facility] Start: 08-31-2016 End: 08-31-2016 Office outpatient visit 25 minutes Jeannegab Archibald [facility] Start: 04-21-2016 End: 04-21-2016 Office outpatient visit 25 minutes Jeanne Dragan [facility] Start: 12-26-2015 End: 12-26-2015 Office outpatient visit 5 minutes Jeanne Dragan [facility] Start: 12-12-2015 End: 12-12-2015 Phone Encounter Jeanne Archibald [facility] Administrative Assistant al Medicine Start: 12-08-2015 End: 12-08-2015 Office outpatient visit 15 minutes Jeanne Dragan [facility] Start: 11-10-2015 End: 11-10-2015 Periodic preventive med est patient 40-64yrs Jeanne Ugalde [facility] Start: 11-10-2015 End: 11-10-2015 Physical examination Jeannegab Hollandon DO Work Phone: [facility] Start: 07-02-2014 End: 07-02-2014 Office outpatient visit 25 minutes Jeanne Archibald [facility] Start: 01-15-2014 End: 01-15-2014 Office outpatient visit 25 minutes Jeanne Archibald [facility] Start: 12-06-2013 End: 12-06-2013 Office outpatient visit 15 minutes Jeanne Archibald [facility] Start: 11-22-2013 End: 11-23-2013 Office outpatient visit 15 minutes Jeanne Archibald [facility] Start: 10-16-2013 End: 10-16-2013 Office outpatient visit 25 minutes Jeanne Archibald [facility] Start: 12-11-2012 End: 12-11-2012 Patient encounter procedure Jeanne Archibald [facility] Start: 11-29-2012 End: 11-29-2012 Patient encounter procedure Jeanne Archibald [facility] Start: 11-21-2012 End: 11-21-2012 Patient encounter procedure Jeanne Archibald [facility] Start: 11-13-2012 End: 11-27-2012 Patient encounter procedure Jeannegab Archibald [facility] Start: 10-17-2012 End: 10-17-2012 Patient encounter procedure Jeanne Archibald [facility] Start: 09-27-2011 End: 09-27-2011 Patient encounter procedure Jeanne Archibald [facility] Start: 07-14-2011 End: 07-15-2011 Patient encounter procedure Jeanne Archibald [facility] Start: 06-09-2011 End: 06-09-2011 Patient encounter procedure Jeanne Archibald [facility] Start: 03-10-2007 End: 03-10-2007 Office outpatient visit 25 minutes Jeannegab Archibald [facility] Patient encounter status Jeanne Archibald DO Work Phone: [facility]; [facility] Work Phone: Physical examination Glenna Gravius SLITTER CUT OFF OPERATOR [facility]; [facility] Work Phone: Physical examination Glenna Gravius SLITTER CUT OFF OPERATOR [facility]; [facility] Work Phone: Procedures Date Procedure Procedure Detail Performing Clinician Start: 02-23-2019 End: 02-23-2019 Operative Report Comments: See Note; NOTES: [facility] Medical Records Department [address] [place] [address] Operative Report 02/23/19 0911 MR#: [id number] Acct: [id number] Name: JOHAN COCHRAN Rep #: [id number] : 1970 48 From: Ericka Herndon PCP: Jeanne Archibald DO Status: REG SD Y Location: [place] [address] Problem List (1) Bunion of right foot Status: Acute Report of Operation Date of Procedure: 02/23/19 Pre-Operative Diagnosis: Painful hallux valgus and hallux rigidus right foot Post-Operative Diagnosis: same Surgery/Procedure Performed:: sarah bunionectomy right foot Description of Surgical Findings:: Moderate hypertrophic bone to dorsal first MTPJ with cartilage denuding. Type of Anesthesia:: General/Regional - popliteal and saphenous nerve block Anesthesiologist: Isac Wynn Specimen's removed: bone Drains: none Estimated Blood Loss (mL): minimal Description of Procedure: Pt was brought to the OR and place on the operating table in the supine position. A pneumatic ankle tourniquet was placed on the pt's right ankle. Following sedation and local popliteal and saphenous block, the foot was scrubbed, prepped, and draped in the usual aspectic fashion. Attention was then taken to the dorsal medial right foot where approximately 6cm linear longitudinal incision was made medial and parallel to the extensor hallucis longus tendon. The incision was deepened through sharp and blunt dissection down to the level of the first met phalangeal joint. Then, a T type of capsulotomy was performed. There was noted to be moderate bone build up with a 1cm joint mouse. Utilizing a rongeur, the excessive bone was removed. The bone was yellowish showing cystic formation from chronic DJD. Next, attention was directed to the first intermetatarsal space where blunt dissection was continued down to the fibular sesamoid apparatus. A longitudinal capsulotomy was performed to loosen the sesamoid. Adductor hallucis tendon was left intact. Then medially, with a sagittal saw, the medial met head was smoothed as the geovanny prominence was reduced. A V type osteotomy with apex pointing distally and arms pointing proximal dorsally and proximal plantarly was performed at the first met head. With the position of the tibial sesamoid being more medially, the capital fragment was only shifted about 1mm. This osteotomy serves to shorten the first ray to allow for more joint motion. A .054 inch K wire was then driven for fixation oriented proximal medial dorsally to distal plantar laterally. The pin was noted to not protrude into the joint space. This was confirmed by intra operative C arm. The first met head area was then smoothed with a bone rasp. The wound was flushed with copious amounts of NSS. A medial capsulorraphy was then performed as about 2mm of capsule was removed. The periosteal and capsular structures were then reapproximated and coapted utilizing 3-0 vicryl sutures. The subcutaneous tissues were also reapproximated and coapted with 3-0 vicryl sutures. The skin was reapproximated and coapted with 4-0 monocryl. The proximal portion of the K wire was bent, trimmed, and rotated. The pin site was dressed with Bacitracin ointment. Steri strips helped to reinforce the incision. The incision was then dressed with xeroform and a sterile compressive dressing consisting of 4x4's, devon, and kerlix. Pin site was protected with more gauze. A 4 kam wrap was applied and the ankle tourniquet was released. A prompt hyperemic response was seen to all digits of the right foot. The pt tolerated the procedure and anesthesia well. She was transferred to the recover room with vital signs stable and vascular status intact to all digits of the right foot. A period of post operative monitoring will be performed and she will then be discharged home. She is to keep the dressing clean, dry, intact, wearing surgical shoe during ambulation. Remain NWB during ambulation with crutches or knee walker. Take pain medication as directed. Follow in Dr. Herndon's office or all post operative care and with any complications. Grafts/Implants Used: .054 K wire percutaneous - Complications none - Admit VTE Documentation VTE Present on Admission: No VTE Pharm Prophylaxis ordered?: No Reason prophylaxis not ordered:: Treatment Not Indicated 02/23/19 0933 <Electronically signed by Ericka Herndon > Date Ericka Herndon CC: Jeanne Archibald DO; Ericka Herndon DPM Signed Jeanne Dragan Start: 02-23-2019 End: 02-23-2019 History and Physical Exam Comments: See Note; NOTES: [facility] Medical Records Department [address] [place] [address] History and Physical 02/23/19 0722 MR#: [id number] Acct: [id number] Name: JOHAN COCHRAN Rep #: [id number] : 1970 48 From: Ericka Herndon PCP: Jeanne Archibald DO Status: REG SD Y Location: [place] [address] Problem List (1) Bunion of right foot Status: Acute History of Present Illness Date of Admission: 02/23/19 The patient is a 48 year old F who is know to me from my private office where she complained of painful arthritic big toe joint. She had tried all conservative treatments including change in shoes, padding, NSAIDs, etc. No improvement. Past Medical History Medical History: Medical History (Last Reviewed 10/11/18 @ 07:51 by Hari Krueger MD) Diabetes E11.9 Multinodular goiter E04.2 Allergies No Known Allergies Allergy (Verified 02/23/19 06:16) Home Medications: Ambulatory Orders Medication Instructions Recorded Multivitamins,Therapeutic 1 tab PO DAILY 01/18/13 Surgical History: Surgical History (Last Reviewed 10/11/18 @ 07:51 by Hari Krueger MD) History of Z98.891 history uterine ablation Smoking Status: Never smoker Tobacco Use: Non-smoker VTE Information - Inpt Only VTE Present on Admission: No Reason prophylaxis not ordered:: Treatment Not Indicated Patient Problems: Active and Suspected Problems (Last Reviewed 10/11/18 @ 07:51 by Hari Krueger MD) Bunion of right foot (Acute) Subjective: Pt complains of painful bunion which was not responsive to conservative treatments. Pt notices she cannot move the big toe and there is a large lump, making it painful in shoes. Objective: Decreased ROM to right first MTPJ with large dorsal exostosis. Pain is present. - Physical Exam Vitals/I AND O's: Vital Signs Temp Pulse Resp BP Pulse Ox 97.6 F L 78 16 117/66 100 02/23/19 06:21 02/23/19 06:21 02/23/19 06:21 02/23/19 06:21 02/23/19 06:21 Oxygen Delivery Method Room Air Weight: 89.5 kg Body Mass Index (BMI) 36.1 General: Oriented x3, Cooperative, No apparent distress Extremities: Peripheral Pulses Normal Skin: No rashes, No breakdown Musculoskeletal: - - Mild bunion to right foot with moderate dorsal exostosis and decreased ROM to right first MTPJ. Pain is present. Neurological: Sensory exam intact to light touch and pain Current Medications Cefazolin Sodium 2 gm/ Sodium (Chloride) 110 mls @ 150 mls/hr IV PREOP ONE Stop: 02/23/19 07:58 Lactated Ringer's () 1,000 mls @ 100 mls/hr IV .Q10H SONAM Last Admin: 02/23/19 06:33 Dose: 100 mls/hr Documented by: Assessment/Plan All Active Problems (Last Reviewed 10/11/18 @ 07:51 by Hari Krueger MD) Bunion of right foot (Acute) 1. painful hallux valgus deformity right foot 2. hallux rigidus right foot Plan: After conservative measures have failed, pt wished to consider surgery. Risks, complications, alternative treatments were reviewed in detail. No guarantees given. Consent was reviewed and signed and pt is to present to [facility] for outpatient surgical intervention on 02/23/19. 02/23/19 0731 <Electronically signed by Ericka Herndon > Date Ericka Herndon Cosigner Signature: Date (if applicable) CC: Jeanne Archibald DO; Ericka Herndon DPM Signed Jeanne Archibald Start: 02-23-2019 End: 02-23-2019 Foot 2 Views Comments: See Note; NOTES: [facility] Imaging Services [address] [address] Foot 2 Views MR#: [id number] Acct: [id number] Name: JOHAN COCHRAN Rep #: [id number] : 1970 F 48 From: Breezy Valles MD PCP: Jeanne Archibald DO Status: [facility] Study: Foot 2 Views Date of Exam: 02/23/19 Exam# [id number] Ordering Dr: Ericka Herndon STUDY: X-RAY - RIGHT FOOT CLINICAL: Female, 48 years old. BUNIONECTOMY RIGHT FOOT IN OR with mini cram. -- 2 IMAGES 1 DOSE SUMMARY -- 0.0344 mGy 8 sec fluoro time TECHNIQUE: 2 intraoperative view(s) of the foot. COMPARISON: None. FINDINGS: Intraoperative imaging provided for bunionectomy. RAD/Foot 2 Views IMPRESSION: Intraoperative imaging provided for bunionectomy. Electronically Signed: Breezy Valles, at 9:33 EST , Service support , CC: Jeanne Archibald DO; Ericka Herndon DP Social Worker School: Signed Jeanne Archibald Start: 10-11-2018 End: 10-11-2018 Surgery Visit Report Comments: See Note; NOTES: [facility] [address] [place] [address] [place] [address] OFFICE VISIT Date of Service: 10/11/18 MR#: [id number] Acct: [id number] Name: JOHAN COCHRAN Rep #: [id number] : 1970 Provider: Hari Krueger MD Age/Sex: 47/F Location: [facility] Status: Signed Intake Vital Signs10/11/18 Body Mass Index (BMI) 37.5 10/11/18 Height 5 ft 2 in 10/11/18 Weight: 190 lb 10/11/18 Body Mass Index (BMI) 34.7 10/11/18 Blood Pressure 126/83 H 10/11/18 Blood Pressure Location Rt brachial Intake Visit Reasons: Thyroid 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 Foreman Required: No Is patient in pain?: No Allergies No Known Allergies Allergy (Verified 10/11/18 07:42) Medications Multivitamins,Therapeutic [Multivitamin] 1 tab PO DAILY 01/18/13 [History Confirmed 10/11/18] metformin 500 mg tablet 500 mg PO DAILY tab 10/11/18 [History Confirmed 10/11/18] PFSH Medical History Diabetes (Acute) Multinodular goiter (Acute) Surgical History History of (Acute) history uterine ablation (Acute) Family History Father High cholesterol Social History (Updated 10/11/18 @ 07:53 by Hari Krueger MD) Smoking Status: Never smoker alcohol intake: never substance use type: does not use HPI HPI HPI: JOHAN COCHRAN, is a 47 F who presents to the office today for HPI HPI HPI: JOHAN COCHRAN, is a 47 F who presents to the office today for Evaluation of multinodular goiter. I last performed a fine-needle aspiration on her in 2011 this came back as a colloid nodule. She has had serial ultrasounds over the years. Her last one was at [facility] and was completed on 06/20/2018. This showed on the left side there was a 1.1 cm x 7 mm x 7 mm nodule. This was the side that I did a fine-needle aspiration on the last time. The right side has subcentimeter nodules. ROS General General: Yes weight change; no appetite, fatigue, colon cancer, breast cancer or weakness HEENT HEENT: Yes difficulty swallowing and swollen glands; no eye injury, eye surgery or hoarseness Endo Endocrine: Yes diabetes mellitus; no thyroid disease, thyroid cancer, Hair loss, heat intolerance or cold intolerance Skin Skin: No rash or changing moles Breast Breast: No left breast lump, right breast lump, nipple discharge, breast pain, abnormal mammogram, abnormal US or breast enlargement Musc Musculoskeletal: No back problems, arthritis, rheumatoid arthritis, gout or joint pain Cardio Cardiovascular: No murmur, pacemaker, heart disease, atrial fibrillation, high blood pressure, heart attack, heart stent, palpitations, shortness of breat with exertion or chest pain Psych Psychiatric: No depression, anxiety or hearing voices Resp Respiratory: No shortness of breath, No sleep apnea, No cough, No COPD, No asthma, No emphysema, No wheezing Gastro Gastrointestinal: No abdominal pain, No nausea or vomiting, No diarrhea, No constipation, No blood in stool, No acid reflux, No hemorrhoids, No ulcers, No gallbladder problem, No black,tarry stools Jose Eduardo Hematologic: No blood thinners, No blood disorders, No bleeding, No anemia, No blood clots Neuro Neurologic: No system reviewed and no additional complaints, except as docu, No as per HPI, No abnormal walking, No abnormal hearing, No abnormal movements, No abnormal speech, No behavioral changes, No burning sensations, No confusion, No seizure-like activity, No unsteadiness, No dizziness, No localized weakness, No frequent falls, No headache(s), No lack of coordination, No loss of vision, No memory loss, Yes numbness, No other visual disturbances, No radiating pain, No restless legs, No sensory deficit, No fainting, Yes tingling, No tremor(s), No weakness, No other Exam HENMT Other: No hard palpable nodules are identified.There is no lymphadenopathy identified. The thyroid itself is not tender at all. Chest Breast Palpation: No nipple discharge Cardio Heart Sounds: no murmurs Assessment AND Plan Problems 1. Multinodular goiter (nontoxic) E04.2 Plan At this point I think it is safe for us to continue to repeat the The ultrasound in another year. If the left lobe is larger than 1.1 cm at that time then I will repeat a fine-needle aspiration then. But at this point I think it safe to watch. Coding Level of Care Code Off vis,new,level 2 Diagnoses Multinodular goiter (nontoxic) E04.2 10/11/18 0754 <Electronically signed by Hari Krueger MD> Date Hari Krueger MD Cosigner Signature: Date (if applicable) CC: Jeanne Archibald DO Jeanne Archibald Start: 07-05-2018 End: 07-06-2018 Foot min 3 Views Comments: See Note; NOTES: [facility] Imaging Services [address] [place] [address] Foot min 3 Views MR#: [id number] Acct: [id number] Name: JOHAN COCHRAN Rep #: [id number] : 1970 F 47 From: Prince Davila MD PCP: Jeanne Archibald DO Status: REG CLI Study: Foot min 3 Views Date of Exam: 07/05/18 Exam# [id number] Ordering Dr: Ericka Herndon HISTORY: right foot pain. COMPARISON: None FINDINGS: XR Foot Min 3 Views: Right. SOFT TISSUES: No acute findings. No radiopaque foreign body. BONES/JOINTS: No acute fracture or subluxation. Normal alignment. Moderate osteoarthritis first MTP joint. No destructive changes observed. Small bidirectional calcaneal spurs. RAD/Foot min 3 Views IMPRESSION: Degenerative changes. No acute fracture or dislocation. at 0422 Reported and signed by: Prince Davila MD Electronically Signed: Prince Davila, at 4:21 EDT Tel , Service support , CC: Jeanne Archibald DO; Ericka Herndon DPM Social Worker School: Signed Jeanne Archibald Start: 06-20-2018 End: 06-21-2018 Thyroid Comments: See Note; NOTES: [facility] Imaging Services [address] [place] [address] Thyroid MR#: [id number] Acct: [id number] Name: JOHAN COCHRAN Rep #: [id number] : 1970 F 47 From: Dwain Granado MD PCP: Jeanne Archibald DO Status: REG CLI Study: Thyroid Date of Exam: 06/20/18 Exam# [id number] Ordering Dr: Jeanne Archibald DO STUDY: THYROID ULTRASOUND REASON FOR EXAM: Female, 47 years old. Follow-up nodule TECHNIQUE: Ultrasound evaluation of the thyroid was performed with real-time and static quick-scale imaging. COMPARISON: Ultrasound thyroid 01/18/2017, 12/26/2015, 12/12/2013. FINDINGS: RIGHT LOBE: 5.5 x 1.5 x 1.8 cm. Echotexture and vascularity are normal. Lower pole sharply circumscribed hypoechoic 6 x 6 x 4 mm nodule. Minimal posterior acoustic enhancement. Generally solid features. On prior imaging of 2016, the nodule measured 5.1 x 3.3 x 5.5 mm. On the prior study of 2015 the nodule measured 5.0 x 3.4 x 4.8 mm. Slightly increased in size. Otherwise similar morphology. Perinodular vascular flow. LEFT LOBE: 4.8 x 1.6 x 1.3 cm. Echotexture and vascularity are normal. Lower pole sharply circumscribed hypoechoic nodule, solid features, 11 x 7 x 7 mm. On prior imaging of 2016, the nodule measured 9.2 x 5.6 x 6.8 mm. On prior imaging of 2015, the nodule measured 9.3 x 6.4 x 7.2 mm. Very minimal increase in size compared to prior imaging. Perinodular and intranodular vascular flow. ISTHMUS: The isthmus measures 4 mm, normal echotexture. US/Thyroid IMPRESSION: Solitary thyroid nodules within the right and the left gland. Each is hypoechoic with sharply circumscribed margins, oval shape. Each has very slightly increased in size compared to prior imaging of 2015. Based on the [place] [employer] Guidelines for assessment of thyroid nodules, each falls into the Intermediate Suspicion Pattern. Based on size criteria, the left-sided thyroid nodule greatest dimension exceeds 1 cm. Ultrasound guided FNA biopsy is recommended. Electronically Signed: Dwain Granado MD at 9:09 EDT Tel , Service support , CC: Jeanne Archibald DO Social Worker School: Signed Jeanne Archibald Work Phone: Start: 01-18-2017 End: 01-18-2017 Thyroid Comments: See Note; NOTES: [facility] Imaging Services [address] [place] [address] Thyroid MR#: [id number] Acct: [id number] Name: JOHAN COCHRAN Rep #: [id number] : 1970 F 46 From: Edil Davenport PCP: Jeanne Archibald DO Status: REG CLI Study: Thyroid Date of Exam: 01/18/17 Exam# [id number] Ordering Dr: Jeanne Archibald DO STUDY: THYROID ULTRASOUND REASON FOR EXAM: Female, 46 years old. Thyroid nodule TECHNIQUE: Ultrasound evaluation of the thyroid was performed with real-time and static quick-scale imaging. COMPARISON: None. FINDINGS: RIGHT LOBE: The right lobe of the thyroid gland measures 5.5 x 1.5 x 1.7 cm. There is a homogeneous echotexture. There is a hypoechoic 6 x 5 x 3 mm nodule in the lower portion. LEFT LOBE: The left lobe of the thyroid gland measures 5.1 x 1.5 x 1.7 cm. There is a homogeneous echotexture. There is a hypoechoic 9 x 7 x 6 mm nodule in the lower portion. ISTHMUS: The isthmus measures 4 mm . The regional lymph nodes are normal. US/Thyroid IMPRESSION: 2 small, less than 1 cm, hypoechoic thyroid nodules as described above. Electronically Signed: Edil Davenport DO at 21:22 EST , Service support , CC: Jeanen Archibald DO Social Worker School: Signed Jaenne Dragan Work Phone: Start: 12-26-2015 End: 12-29-2015 Bilat Scrn Digital AND CAD Comments: See Note; NOTES: [facility] Imaging Services [address] [place] [address] Verdana 4d Bilat Scrn Digital AND CAD MR#: [id number] Acct: [id number] Name: JOHAN COCHRAN Rep #: [id number] : 1970 F 45 From: Breezy Valles MD PCP: Jeanne Archibald DO Status: REG CLI Study: Bilat Scrn Digital AND CAD Date of Exam: 12/26/15 Exam# [id number] Ordering Dr: Jeanne Archibald DO MAMMOGRAPHY - BILATERAL SCREENING REASON FOR EXAM: Female, 45 years old. Routine annual screening examination. PERTINENT HISTORY: Non-contributory. TECHNIQUE: Digital bilateral breast janay (3D mammographic acquisition) in the CC and MLO projections. 2-D mediolateral oblique (MLO) and craniocaudad (CC) views of both breasts were obtained. CAD: Full Field Digital Mammography with Computer Added Detection was performed. COMPARISON: Comparison is made with prior study dated December 12, 2013 and December 11, 2012. FINDINGS: Breast Composition: The breasts are heterogeneously dense, which may obscure small masses. There are no dominant masses or suspicious calcifications. Stable asymmetry of breast tissue where more breast tissue is seen in the right breast as compared to the left side. This is unchanged. No other significant abnormalities are identified. There has been no significant change since the prior study. HPBI/Bilat Scrn Digital AND CAD IMPRESSION: Stable bilateral screening mammogram. Yearly follow-up mammogram recommended. (A) ASSESSMENT CATEGORY: BIRADS Category 2: Benign. A letter regarding these results will be sent to the patient by the facility within 30 days. Approximately 10% of breast cancers are not detected by mammography. A normal mammogram should not delay biopsy of a clinically suspicious abnormality. [id number] Electronically Signed: Breezy Valles MD at 7:50 EST Tel [phone], Service support [phone], CC: Jeanne Archibald DO Social Worker School: Signed Jeanne Archibald Work Phone: Start: 12-26-2015 End: 12-29-2015 Thyroid Comments: See Note; NOTES: [facility] Imaging Services [address] [place] [address] Verdana 4d Thyroid MR#: [id number] Acct: [id number] Name: JOHAN COCHRAN Rep #: [id number] : 1970 F 45 From: Breezy Valles MD PCP: Jeanne Archibald DO Status: REG CLI Study: Thyroid Date of Exam: 12/26/15 Exam# [id number] Ordering Dr: Jeanne Archibald DO STUDY: THYROID ULTRASOUND REASON FOR EXAM: Female, 45 years old. The patient has a history of thyroid nodules. TECHNIQUE: Ultrasound evaluation of the thyroid was performed with real-time and static quick-scale imaging. COMPARISON: Comparison is made with prior examination dated December 12, 2013. FINDINGS: RIGHT LOBE: The right lobe of the thyroid gland measures 5.0 cm x 1.5 cm x 2.0 cm. There is a homogeneous echotexture. There is a stable 5 mm x 5 mm x 3 mm hypoechoic solid nodule in the lower pole of the right lobe. This is unchanged. LEFT LOBE: The left lobe of the thyroid gland measures 5.0 cm x 1.6 cm x 1.9 cm. There is a homogeneous echotexture. There is a well-defined 9 mm x 7 mm x 6 mm hypoechoic solid nodule in the lower pole. This is unchanged. ISTHMUS: The isthmus measures 5.0 mm. The regional lymph nodes are normal. US/Thyroid IMPRESSION: Subcentimeter bilateral hypoechoic solid nodules. This is unchanged. Electronically Signed: Breezy Valles MD at 7:48 EST Tel [phone], Service support [phone], CC: Jeanne Archibald DO Social Worker School: Signed Jeanne Archibald Work Phone: Start: 12-12-2013 End: 12-12-2013 Bilat Scrn Digital & CAD Comments: See Note; NOTES: [facility] Imaging Services [address] [place] [address] Breast Imaging Report MR#: [id number] Acct: [id number] Name: JOHAN COCHRAN Rep #: [id number] : 1970 F 43 From: Breezy Valles MD PCP: Neisha James DO Status: REG CLI Exam# [id number] Ordering Dr: Neisha James DO MAMMOGRAPHY - BILATERAL SCREENING REASON FOR EXAM: Female, 43 years old. Routine annual screening examination. PERTINENT HISTORY: Non-contributory. TECHNIQUE: Digital examination. Mediolateral oblique (MLO) and craniocaudad (CC) views of both breasts were obtained. CAD: CAD was performed on this study. COMPARISON: Comparison is made with prior examination dated December 11, 2012 and November 03, 2010. FINDINGS: Breast Composition: The breasts are heterogeneously dense, which may obscure small masses. There are no dominant masses or suspicious calcifications. There is evidence of asymmetry of breast tissue where more breast tissue is seen in the right breast as compared to the left side. This is unchanged. No other significant abnormalities are identified. There has been no significant change since the prior study. IMPRESSION: Stable bilateral screening mammogram. Yearly follow-up recommended. (A) ASSESSMENT CATEGORY: BIRADS Category 2: Benign finding(s). A letter regarding these results will be sent to the patient by the facility within 30 days. Approximately 10% of breast cancers are not detected by mammography. A normal mammogram should not delay biopsy of a clinically suspicious abnormality. Electronically Signed: Breezy Valles MD at 8:23 EDT Tel [phone], Service support [phone], CC: Neisha James DO Social Worker School: Signed Neisha James Work Phone: Start: 12-12-2013 End: 12-12-2013 Thyroid Comments: See Note; NOTES: [facility] Imaging Services [address] [place] [address] Ultrasound Report MR#: [id number] Acct: [id number] Name: JOHAN COCHRAN Rep #: [id number] : 1970 F 43 From: Breezy Valles MD PCP: Neisha James DO Status: REG CLI Study: Thyroid Date of Exam: 12/12/13 Exam# [id number] Ordering Dr: Neisha James DO STUDY: THYROID ULTRASOUND REASON FOR EXAM: Female, 43 years old. Followup for thyroid nodule. TECHNIQUE: Ultrasound evaluation of the thyroid was performed with real-time and static quick-scale imaging. COMPARISON: Comparison is made with prior study dated October 30, 2012. FINDINGS: RIGHT LOBE: The right lobe of the thyroid gland measures 5.7 cm x 1.8 cm x 1.0 cm. There is a homogeneous echotexture. There is a stable 4 mm x 4 mm x 3 mm well-defined hypoechoic nodule in the lower pole of the right lobe. LEFT LOBE: The left lobe of the thyroid gland measures 5.1 cm x 1.9 cm x 1.5 cm. There is a homogeneous echotexture. There is a stable 10 mm x 7 mm x 5 mm hypoechoic solid nodule in the lower pole of the left lobe. ISTHMUS: The isthmus measures 5.0 mm. The regional lymph nodes are normal. IMPRESSION: Stable bilateral hypoechoic solid nodules in the right and left lobes of the thyroid. Electronically Signed: Breezy Valles MD at 12:20 EDT Tel [phone], Service support [phone], CC: Neisha James DO Social Worker School: Signed Neisha James Work Phone: Start: 11-22-2013 End: 11-22-2013 Spmtry w/vc expiratory mani w/wo mxml vol vntj _ Jeanne Archibald Work Phone: Plan of Treatment Date Care Activity Detail Author Start: 11-05-2021 Procedure Education Eprescribed prescriptions (G8553) [facility]; [facility] Work Phone: Start: 11-05-2021 Provider Instructions for Treatment [facility]; [facility] Work Phone: Start: 11-05-2021 Hemoglobin glycosylated a1c HGB A1C (60215) [facility]; [facility] Work Phone: Start: 11-05-2021 Hepatic function panel HEPATIC FUNCTION PANEL (12005) [facility]; [facility] Work Phone: Start: 11-05-2021 Lipid panel LIPID PANEL (44093) [facility]; [facility] Work Phone: Start: 10-08-2021 Cyanocobalamin vitamin b-12 VITAMIN B12 AND FOLATES (12200) [facility]; [facility] Work Phone: Start: 10-08-2021 Assay of thyroid stimulating hormone tsh TSH (THYROID STIMULATING HORMONE) (05596) [facility]; [facility] Work Phone: Start: 10-08-2021 Urinalysis qual/semiquant except immunoassays URINALYSIS (23731) [facility]; [facility] Work Phone: Start: 10-08-2021 Urine albumin quantitative MICROALBUMIN: CREATININE RATIO (61932) AND (24585) [facility]; [facility] Work Phone: Start: 10-08-2021 Blood count complete auto&auto difrntl wbc CBC W/AUTO DIFF WBC (69712) [facility]; [facility] Work Phone: Start: 10-08-2021 Comprehensive metabolic panel METABOLIC PANEL, COMPREHENSIVE (48022) [facility]; [facility] Work Phone: Start: 10-08-2021 Lipid panel LIPID PANEL (40779) [facility]; [facility] Work Phone: Start: 10-08-2021 25 hydroxy includes fractions if performed CALCIFEDIOL (92237) [facility]; [facility] Work Phone: Start: 11-10-2020 Lipid panel LIPID PANEL (12138) [facility]; [facility] Work Phone: Start: 11-10-2020 Hemoglobin glycosylated a1c HGB A1C (94293) [facility]; [facility] Work Phone: Start: 11-10-2020 Procedure Education Eprescribed prescriptions (G8553) [facility]; [facility] Work Phone: Start: 11-10-2020 Provider Instructions for Treatment [facility]; [facility] Work Phone: Start: 11-04-2020 Lipid panel LIPID PANEL (86383) [facility]; [facility] Work Phone: Start: 11-04-2020 Cyanocobalamin vitamin b-12 VITAMIN B-12 (CYANOCOBALAMIN) (48902) [facility]; [facility] Work Phone: Start: 11-04-2020 Comprehensive metabolic panel METABOLIC PANEL, COMPREHENSIVE (38181) [facility]; [facility] Work Phone: Start: 11-04-2020 CBC, PLATELETS & MANUAL DIFF (02524) CBC, PLATELETS & MANUAL DIFF (62221) [facility]; [facility] Work Phone: Start: 11-04-2020 Creatinine other source MICROALB;CREAT RATION, RAND UR (71054) [facility]; [facility] Work Phone: Start: 11-04-2020 Hemoglobin glycosylated a1c HGB A1C (87159) [facility]; [facility] Work Phone: Start: 11-04-2020 25 hydroxy includes fractions if performed CALCIFEDIOL (10281) [facility]; [facility] Work Phone: Start: 11-04-2020 Assay of triiodothyronine t3 free T3, FREE (TRIDOTHYRONINE) (00908) [facility]; [facility] Work Phone: Start: 11-04-2020 Assay of free thyroxine T4, FREE (THYROXINE) (45032) [facility]; [facility] Work Phone: Start: 11-04-2020 Assay of thyroid stimulating hormone tsh TSH (THYROID STIMULATING HORMONE) (68014) [facility]; [facility] Work Phone: Start: 10-18-2019 Procedure Education Eprescribed prescriptions (G8553) [facility] Work Phone: Start: 10-18-2019 Provider Instructions for Treatment [facility] Work Phone: Start: 09-19-2019 Lipid panel LIPID PANEL (74835) [facility] Work Phone: Start: 09-19-2019 Urinalysis qual/semiquant except immunoassays URINALYSIS (78130) [facility] Work Phone: Start: 09-19-2019 CBC, PLATELETS & MANUAL DIFF (15246) CBC, PLATELETS & MANUAL DIFF (80299) [facility] Work Phone: Start: 09-19-2019 Urine albumin quantitative MICROALBUMIN: CREATININE RATIO (14329) AND (71915) [facility] Work Phone: Start: 09-19-2019 1 25 dihydroxy includes fractions if performed VITAMIN D, 1, 25-DIHYDROXY (92497) [facility] Work Phone: Start: 09-19-2019 HbA1c (Bld) [Mass fraction] HGB A1C (75736) [facility] Work Phone: Start: 09-19-2019 Hemoglobin glycosylated a1c HGB A1C (33952) [facility]; [facility] Work Phone: Start: 09-19-2019 Comprehensive metabolic panel METABOLIC PANEL, COMPREHENSIVE (22533) [facility] Work Phone: Start: 09-19-2019 Assay of triiodothyronine t3 free T3, FREE (TRIDOTHYRONINE) (63132) [facility]; [facility] Work Phone: Start: 09-19-2019 Free T3 [Mass/Vol] T3, FREE (TRIDOTHYRONINE) (78963) [facility] Work Phone: Start: 09-19-2019 Assay of free thyroxine T4, FREE (THYROXINE) (43401) [facility]; [facility] Work Phone: Start: 09-19-2019 Free T4 [Mass/Vol] T4, FREE (THYROXINE) (98135) [facility] Work Phone: Start: 09-19-2019 Assay of thyroid stimulating hormone tsh TSH (THYROID STIMULATING HORMONE) (88641) [facility]; [facility] Work Phone: Start: 09-19-2019 TSH Qn TSH (THYROID STIMULATING HORMONE) (47333) [facility] Work Phone: Start: 09-19-2019 Cobalamin (Vitamin B12) [Mass/Vol] VITAMIN B-12 (CYANOCOBALAMIN) (04356) [facility] Work Phone: Start: 09-19-2019 Cyanocobalamin vitamin b-12 VITAMIN B-12 (CYANOCOBALAMIN) (15366) [facility]; [facility] Work Phone: Start: 01-31-2019 Procedure Education Eprescribed prescriptions (G8553) [facility] Work Phone: Start: 01-31-2019 Provider Instructions for Treatment Reviewed Lab [facility] Work Phone: Start: 09-22-2018 Provider Instructions for Treatment [facility] Work Phone: Start: 09-22-2018 Lipoprotein blood rosamaria numbers & subclasses NMR Profile (30111) [facility] Work Phone: Start: 09-22-2018 Assay of thyroid stimulating hormone tsh TSH (41595) [facility]; [facility] Work Phone: Start: 09-22-2018 TSH Qn TSH (16152) [facility] Work Phone: Start: 09-22-2018 Assay of free thyroxine T4, FREE (THYROXINE) (13043) [facility]; [facility] Work Phone: Start: 09-22-2018 Free T4 [Mass/Vol] T4, FREE (THYROXINE) (50092) [facility] Work Phone: Start: 09-22-2018 Assay of triiodothyronine t3 free T3, FREE (TRIDOTHYRONINE) (77345) [facility]; [facility] Work Phone: Start: 09-22-2018 Free T3 [Mass/Vol] T3, FREE (TRIDOTHYRONINE) (22497) [facility] Work Phone: Start: 09-22-2018 HbA1c (Bld) [Mass fraction] HGB A1C (76187) [facility] Work Phone: Start: 09-22-2018 Hemoglobin glycosylated a1c HGB A1C (68057) [facility]; [facility] Work Phone: Start: 09-22-2018 25 hydroxy includes fractions if performed CALCIFEDIOL (45210) [facility] Work Phone: Start: 09-22-2018 Cobalamin (Vitamin B12) [Mass/Vol] VITAMIN B-12 (CYANOCOBALAMIN) (34846) [facility] Work Phone: Start: 09-22-2018 Cyanocobalamin vitamin b-12 VITAMIN B-12 (CYANOCOBALAMIN) (45759) [facility]; [facility] Work Phone: Start: 09-22-2018 Urnls dip stick/tablet reagent auto microscopy URINALYSIS, W/ MICRO (28527) [facility] Work Phone: Start: 09-22-2018 Urine albumin quantitative MICROALBUMIN: CREATININE RATIO (06510) AND (32182) [facility] Work Phone: Start: 09-22-2018 Comprehensive metabolic panel METABOLIC PANEL, COMPREHENSIVE (80485) [facility] Work Phone: Start: 09-22-2018 Blood count complete auto&auto difrntl wbc CBC W/AUTO DIFF WBC (99668) [facility] Work Phone: Start: 06-26-2018 Lipoprotein blood rosamaria numbers & subclasses NMR Profile (95425) [facility] Work Phone: Start: 06-26-2018 Protein mass conc NMR Profile (60257) [facility] Work Phone: Start: 06-15-2018 Procedure Education Eprescribed prescriptions (G8553) [facility] Work Phone: Start: 06-15-2018 Provider Instructions for Treatment [facility] Work Phone: Start: 06-15-2018 Hemoglobin A1c/Hemoglobin.total mass fraction (Bld) HGB A1C (38080) [facility] Work Phone: Start: 06-15-2018 Hemoglobin glycosylated a1c HGB A1C (25941) [facility]; [facility] Work Phone: Start: 01-26-2018 Provider Instructions for Treatment [facility] Work Phone: Start: 01-26-2018 Cobalamin (Vitamin B12) mass conc VITAMIN B-12 (CYANOCOBALAMIN) (66277) [facility] Work Phone: Start: 01-26-2018 Cyanocobalamin vitamin b-12 VITAMIN B-12 (CYANOCOBALAMIN) (83443) [facility]; [facility] Work Phone: Start: 01-26-2018 25 hydroxy includes fractions if performed CALCIFEDIOL (30447) [facility] Work Phone: Start: 01-26-2018 Urine albumin quantitative MICROALBUMIN: CREATININE RATIO (96628) AND (64553) [facility] Work Phone: Start: 01-26-2018 Comprehensive metabolic panel METABOLIC PANEL, COMPREHENSIVE (98734) [facility] Work Phone: Start: 01-26-2018 Lipoprotein blood rosamaria numbers & subclasses LIPOPROTEIN, BLD, BY NMR (41483) [facility]; [facility] Work Phone: Start: 01-26-2018 Protein mass conc LIPOPROTEIN, BLD, BY NMR (68616) [facility] Work Phone: Start: 01-26-2018 Blood count complete auto&auto difrntl wbc CBC with auto diff (79616) [facility] Work Phone: Start: 01-26-2018 Hemoglobin A1c/Hemoglobin.total mass fraction (Bld) HGB A1C (11776) [facility] Work Phone: Start: 01-26-2018 Hemoglobin glycosylated a1c HGB A1C (05712) [facility]; [facility] Work Phone: Start: 09-22-2017 Provider Instructions for Treatment [facility] Work Phone: Start: 09-22-2017 25 hydroxy includes fractions if performed CALCIFEDIOL (55845) [facility] Work Phone: Start: 09-22-2017 Cobalamin (Vitamin B12) mass conc VITAMIN B-12 (CYANOCOBALAMIN) (59710) [facility] Work Phone: Start: 09-22-2017 Cyanocobalamin vitamin b-12 VITAMIN B-12 (CYANOCOBALAMIN) (06852) [facility]; [facility] Work Phone: Start: 09-22-2017 Hemoglobin A1c/Hemoglobin.total mass fraction (Bld) HGB A1C (96977) [facility] Work Phone: Payers Date Payer Category Payer Unknown [id number] 2007 Unknown [id number] 1970 Unknown [id number] Unknown [facility] Social History Date Type Detail Facility Tobacco use: Never smoker [facility] Work Phone: Tobacco use: Tobacco use: [facility] Work Phone: Instructions Note Date & Type Note Facility [facility] Work Phone: Instructions Note Date & Type Note Facility [facility] Work Phone: Instructions Name Dates Details Nonsmoker : How to access he alth information online Indication:Nonsmoker Nonsmoker : How to access he alth information online - Detail Indication:Nonsmoker Nonsmoker : Patient Instruct ions Indication:Nonsmoker Impaired fasting glucose : H ow to access health information online Indication:Impaired fasting glucose Impaired fasting glucose : H ow to access health information online - Detail Indication:Impaired fasting glucose Impaired fasting glucose : P atient Instructions Indication:Impaired fasting glucose BMI 36.0-36.9,adult : How to access health information online Indication:BMI 36.0-36.9,adult BMI 36.0-36.9,adult : How to access health information online - Detail Indication:BMI 36.0-36.9,adult BMI 36.0-36.9,adult : Patien t Instructions Indication:BMI 36.0-36.9,adult Hyperglycemia : Patient Inst ructions Indication:Hyperglycemia Cough : How to access health information online Indication:Cough Cough : How to access health information online - Detail Indication:Cough Cough : Patient Instructions Indication:Cough Paresthesia : Patient Instru ctions Indication:Paresthesia Name Dates Details How to access health informa tion online Indication:Nonsmoker Start:15-Jun-2018 Instruction Type:Patient Education How to access health informa tion online - Detail Indication:Nonsmoker Start:15-Jun-2018 Instruction Type:Patient Education Patient Instructions Indication:Nonsmoker Start:15-Jun-2018 Instruction Type:Provider Instructions for Treatment How to access health informa tion online Indication:Nonsmoker Start:26-Jan-2018 Instruction Type:Patient Education How to access health informa tion online - Detail Indication:Nonsmoker Start:26-Jan-2018 Instruction Type:Patient Education Patient Instructions Indication:Nonsmoker Start:26-Jan-2018 Instruction Type:Provider Instructions for Treatment How to access health informa tion online Indication:Nonsmoker Start:22-Sep-2017 Instruction Type:Patient Education How to access health informa tion online - Detail Indication:Nonsmoker Start:22-Sep-2017 Instruction Type:Patient Education Patient Instructions Indication:Nonsmoker Start:22-Sep-2017 Instruction Type:Provider Instructions for Treatment How to access health informa tion online Indication:Nonsmoker Start:19-May-2017 Instruction Type:Patient Education How to access health informa tion online - Detail Indication:Nonsmoker Start:19-May-2017 Instruction Type:Patient Education Patient Instructions Indication:Nonsmoker Start:19-May-2017 Instruction Type:Provider Instructions for Treatment How to access health informa tion online Indication:Impaired fasting glucose Start:04-Jan-2017 Instruction Type:Patient Education How to access health informa tion online - Detail Indication:Impaired fasting glucose Start:04-Jan-2017 Instruction Type:Patient Education Patient Instructions Indication:Impaired fasting glucose Start:04-Jan-2017 Instruction Type:Provider Instructions for Treatment How to access health informa tion online Indication:Nonsmoker Start:31-Aug-2016 Instruction Type:Patient Education How to access health informa tion online - Detail Indication:Nonsmoker Start:31-Aug-2016 Instruction Type:Patient Education Patient Instructions Indication:Nonsmoker Start:31-Aug-2016 Instruction Type:Provider Instructions for Treatment How to access health informa tion online Indication:BMI 36.0-36.9,adult Start:21-Apr-2016 Instruction Type:Patient Education How to access health informa tion online - Detail Indication:BMI 36.0-36.9,adult Start:21-Apr-2016 Instruction Type:Patient Education Patient Instructions Indication:BMI 36.0-36.9,adult Start:21-Apr-2016 Instruction Type:Provider Instructions for Treatment Patient Instructions Indication:Hyperglycemia Start:10-Nov-2015 Instruction Type:Provider Instructions for Treatment Patient Instructions Indication:Impaired fasting glucose Start:02-Jul-2014 Instruction Type:Provider Instructions for Treatment Patient Instructions Indication:Impaired fasting glucose Start:15-Jan-2014 Instruction Type:Provider Instructions for Treatment How to access health informa tion online Indication:Cough Start:22-Nov-2013 Instruction Type:Patient Education How to access health informa tion online - Detail Indication:Cough Start:22-Nov-2013 Instruction Type:Patient Education Patient Instructions Indication:Cough Start:22-Nov-2013 Instruction Type:Provider Instructions for Treatment How to access health informa tion online Indication:Impaired fasting glucose Start:16-Oct-2013 Instruction Type:Patient Education How to access health informa tion online - Detail Indication:Impaired fasting glucose Start:16-Oct-2013 Instruction Type:Patient Education Patient Instructions Indication:Impaired fasting glucose Start:16-Oct-2013 Instruction Type:Provider Instructions for Treatment Patient Instructions Indication:Paresthesia Start:13-Nov-2012 Instruction Type:Provider Instructions for Treatment Patient Instructions Indication:Impaired fasting glucose Start:17-Oct-2012 Instruction Type:Provider Instructions for Treatment Name Dates Details How to access health informa tion online Indication:Nonsmoker Start:15-Jun-2018 Instruction Type:Patient Education How to access health informa tion online - Detail Indication:Nonsmoker Start:15-Jun-2018 Instruction Type:Patient Education Patient Instructions Indication:Nonsmoker Start:15-Jun-2018 Instruction Type:Provider Instructions for Treatment How to access health informa tion online Indication:Nonsmoker Start:26-Jan-2018 Instruction Type:Patient Education How to access health informa tion online - Detail Indication:Nonsmoker Start:26-Jan-2018 Instruction Type:Patient Education Patient Instructions Indication:Nonsmoker Start:26-Jan-2018 Instruction Type:Provider Instructions for Treatment How to access health informa tion online Indication:Nonsmoker Start:22-Sep-2017 Instruction Type:Patient Education How to access health informa tion online - Detail Indication:Nonsmoker Start:22-Sep-2017 Instruction Type:Patient Education Patient Instructions Indication:Nonsmoker Start:22-Sep-2017 Instruction Type:Provider Instructions for Treatment How to access health informa tion online Indication:Nonsmoker Start:19-May-2017 Instruction Type:Patient Education How to access health informa tion online - Detail Indication:Nonsmoker Start:19-May-2017 Instruction Type:Patient Education Patient Instructions Indication:Nonsmoker Start:19-May-2017 Instruction Type:Provider Instructions for Treatment How to access health informa tion online Indication:Impaired fasting glucose Start:04-Jan-2017 Instruction Type:Patient Education How to access health informa tion online - Detail Indication:Impaired fasting glucose Start:04-Jan-2017 Instruction Type:Patient Education Patient Instructions Indication:Impaired fasting glucose Start:04-Jan-2017 Instruction Type:Provider Instructions for Treatment How to access health informa tion online Indication:Nonsmoker Start:31-Aug-2016 Instruction Type:Patient Education How to access health informa tion online - Detail Indication:Nonsmoker Start:31-Aug-2016 Instruction Type:Patient Education Patient Instructions Indication:Nonsmoker Start:31-Aug-2016 Instruction Type:Provider Instructions for Treatment How to access health informa tion online Indication:BMI 36.0-36.9,adult Start:21-Apr-2016 Instruction Type:Patient Education How to access health informa tion online - Detail Indication:BMI 36.0-36.9,adult Start:21-Apr-2016 Instruction Type:Patient Education Patient Instructions Indication:BMI 36.0-36.9,adult Start:21-Apr-2016 Instruction Type:Provider Instructions for Treatment Patient Instructions Indication:Hyperglycemia Start:10-Nov-2015 Instruction Type:Provider Instructions for Treatment Patient Instructions Indication:Impaired fasting glucose Start:02-Jul-2014 Instruction Type:Provider Instructions for Treatment Patient Instructions Indication:Impaired fasting glucose Start:15-Jan-2014 Instruction Type:Provider Instructions for Treatment How to access health informa tion online Indication:Cough Start:22-Nov-2013 Instruction Type:Patient Education How to access health informa tion online - Detail Indication:Cough Start:22-Nov-2013 Instruction Type:Patient Education Patient Instructions Indication:Cough Start:22-Nov-2013 Instruction Type:Provider Instructions for Treatment How to access health informa tion online Indication:Impaired fasting glucose Start:16-Oct-2013 Instruction Type:Patient Education How to access health informa tion online - Detail Indication:Impaired fasting glucose Start:16-Oct-2013 Instruction Type:Patient Education Patient Instructions Indication:Impaired fasting glucose Start:16-Oct-2013 Instruction Type:Provider Instructions for Treatment Patient Instructions Indication:Paresthesia Start:13-Nov-2012 Instruction Type:Provider Instructions for Treatment Patient Instructions Indication:Impaired fasting glucose Start:17-Oct-2012 Instruction Type:Provider Instructions for Treatment Name Dates Details How to access health informa tion online Indication:BMI 34.0-34.9,adult Start:22-Sep-2018 Instruction Type:Patient Education How to access health informa tion online - Detail Indication:BMI 34.0-34.9,adult Start:22-Sep-2018 Instruction Type:Patient Education Patient Instructions Indication:BMI 34.0-34.9,adult Start:22-Sep-2018 Instruction Type:Provider Instructions for Treatment How to access health informa tion online Indication:Nonsmoker Start:15-Jun-2018 Instruction Type:Patient Education How to access health informa tion online - Detail Indication:Nonsmoker Start:15-Jun-2018 Instruction Type:Patient Education Patient Instructions Indication:Nonsmoker Start:15-Jun-2018 Instruction Type:Provider Instructions for Treatment How to access health informa tion online Indication:Nonsmoker Start:26-Jan-2018 Instruction Type:Patient Education How to access health informa tion online - Detail Indication:Nonsmoker Start:26-Jan-2018 Instruction Type:Patient Education Patient Instructions Indication:Nonsmoker Start:26-Jan-2018 Instruction Type:Provider Instructions for Treatment How to access health informa tion online Indication:Nonsmoker Start:22-Sep-2017 Instruction Type:Patient Education How to access health informa tion online - Detail Indication:Nonsmoker Start:22-Sep-2017 Instruction Type:Patient Education Patient Instructions Indication:Nonsmoker Start:22-Sep-2017 Instruction Type:Provider Instructions for Treatment How to access health informa tion online Indication:Nonsmoker Start:19-May-2017 Instruction Type:Patient Education How to access health informa tion online - Detail Indication:Nonsmoker Start:19-May-2017 Instruction Type:Patient Education Patient Instructions Indication:Nonsmoker Start:19-May-2017 Instruction Type:Provider Instructions for Treatment How to access health informa tion online Indication:Impaired fasting glucose Start:04-Jan-2017 Instruction Type:Patient Education How to access health informa tion online - Detail Indication:Impaired fasting glucose Start:04-Jan-2017 Instruction Type:Patient Education Patient Instructions Indication:Impaired fasting glucose Start:04-Jan-2017 Instruction Type:Provider Instructions for Treatment How to access health informa tion online Indication:Nonsmoker Start:31-Aug-2016 Instruction Type:Patient Education How to access health informa tion online - Detail Indication:Nonsmoker Start:31-Aug-2016 Instruction Type:Patient Education Patient Instructions Indication:Nonsmoker Start:31-Aug-2016 Instruction Type:Provider Instructions for Treatment How to access health informa tion online Indication:BMI 36.0-36.9,adult Start:21-Apr-2016 Instruction Type:Patient Education How to access health informa tion online - Detail Indication:BMI 36.0-36.9,adult Start:21-Apr-2016 Instruction Type:Patient Education Patient Instructions Indication:BMI 36.0-36.9,adult Start:21-Apr-2016 Instruction Type:Provider Instructions for Treatment Patient Instructions Indication:Hyperglycemia Start:10-Nov-2015 Instruction Type:Provider Instructions for Treatment Patient Instructions Indication:Impaired fasting glucose Start:02-Jul-2014 Instruction Type:Provider Instructions for Treatment Patient Instructions Indication:Impaired fasting glucose Start:15-Jan-2014 Instruction Type:Provider Instructions for Treatment How to access health informa tion online Indication:Cough Start:22-Nov-2013 Instruction Type:Patient Education How to access health informa tion online - Detail Indication:Cough Start:22-Nov-2013 Instruction Type:Patient Education Patient Instructions Indication:Cough Start:22-Nov-2013 Instruction Type:Provider Instructions for Treatment How to access health informa tion online Indication:Impaired fasting glucose Start:16-Oct-2013 Instruction Type:Patient Education How to access health informa tion online - Detail Indication:Impaired fasting glucose Start:16-Oct-2013 Instruction Type:Patient Education Patient Instructions Indication:Impaired fasting glucose Start:16-Oct-2013 Instruction Type:Provider Instructions for Treatment Patient Instructions Indication:Paresthesia Start:13-Nov-2012 Instruction Type:Provider Instructions for Treatment Patient Instructions Indication:Impaired fasting glucose Start:17-Oct-2012 Instruction Type:Provider Instructions for Treatment Name Dates Details How to access health informa tion online Indication:BMI 34.0-34.9,adult Start:22-Sep-2018 Instruction Type:Patient Education How to access health informa tion online - Detail Indication:BMI 34.0-34.9,adult Start:22-Sep-2018 Instruction Type:Patient Education Patient Instructions Indication:BMI 34.0-34.9,adult Start:22-Sep-2018 Instruction Type:Provider Instructions for Treatment How to access health informa tion online Indication:Nonsmoker Start:15-Jun-2018 Instruction Type:Patient Education How to access health informa tion online - Detail Indication:Nonsmoker Start:15-Jun-2018 Instruction Type:Patient Education Patient Instructions Indication:Nonsmoker Start:15-Jun-2018 Instruction Type:Provider Instructions for Treatment How to access health informa tion online Indication:Nonsmoker Start:26-Jan-2018 Instruction Type:Patient Education How to access health informa tion online - Detail Indication:Nonsmoker Start:26-Jan-2018 Instruction Type:Patient Education Patient Instructions Indication:Nonsmoker Start:26-Jan-2018 Instruction Type:Provider Instructions for Treatment How to access health informa tion online Indication:Nonsmoker Start:22-Sep-2017 Instruction Type:Patient Education How to access health informa tion online - Detail Indication:Nonsmoker Start:22-Sep-2017 Instruction Type:Patient Education Patient Instructions Indication:Nonsmoker Start:22-Sep-2017 Instruction Type:Provider Instructions for Treatment How to access health informa tion online Indication:Nonsmoker Start:19-May-2017 Instruction Type:Patient Education How to access health informa tion online - Detail Indication:Nonsmoker Start:19-May-2017 Instruction Type:Patient Education Patient Instructions Indication:Nonsmoker Start:19-May-2017 Instruction Type:Provider Instructions for Treatment How to access health informa tion online Indication:Impaired fasting glucose Start:04-Jan-2017 Instruction Type:Patient Education How to access health informa tion online - Detail Indication:Impaired fasting glucose Start:04-Jan-2017 Instruction Type:Patient Education Patient Instructions Indication:Impaired fasting glucose Start:04-Jan-2017 Instruction Type:Provider Instructions for Treatment How to access health informa tion online Indication:Nonsmoker Start:31-Aug-2016 Instruction Type:Patient Education How to access health informa tion online - Detail Indication:Nonsmoker Start:31-Aug-2016 Instruction Type:Patient Education Patient Instructions Indication:Nonsmoker Start:31-Aug-2016 Instruction Type:Provider Instructions for Treatment How to access health informa tion online Indication:BMI 36.0-36.9,adult Start:21-Apr-2016 Instruction Type:Patient Education How to access health informa tion online - Detail Indication:BMI 36.0-36.9,adult Start:21-Apr-2016 Instruction Type:Patient Education Patient Instructions Indication:BMI 36.0-36.9,adult Start:21-Apr-2016 Instruction Type:Provider Instructions for Treatment Patient Instructions Indication:Hyperglycemia Start:10-Nov-2015 Instruction Type:Provider Instructions for Treatment Patient Instructions Indication:Impaired fasting glucose Start:02-Jul-2014 Instruction Type:Provider Instructions for Treatment Patient Instructions Indication:Impaired fasting glucose Start:15-Jan-2014 Instruction Type:Provider Instructions for Treatment How to access health informa tion online Indication:Cough Start:22-Nov-2013 Instruction Type:Patient Education How to access health informa tion online - Detail Indication:Cough Start:22-Nov-2013 Instruction Type:Patient Education Patient Instructions Indication:Cough Start:22-Nov-2013 Instruction Type:Provider Instructions for Treatment How to access health informa tion online Indication:Impaired fasting glucose Start:16-Oct-2013 Instruction Type:Patient Education How to access health informa tion online - Detail Indication:Impaired fasting glucose Start:16-Oct-2013 Instruction Type:Patient Education Patient Instructions Indication:Impaired fasting glucose Start:16-Oct-2013 Instruction Type:Provider Instructions for Treatment Patient Instructions Indication:Paresthesia Start:13-Nov-2012 Instruction Type:Provider Instructions for Treatment Patient Instructions Indication:Impaired fasting glucose Start:17-Oct-2012 Instruction Type:Provider Instructions for Treatment Name Dates Details How to access health informa tion online Indication:Non-smoker Start:31-Jan-2019 Instruction Type:Patient Education How to access health informa tion online - Detail Indication:Non-smoker Start:31-Jan-2019 Instruction Type:Patient Education Patient Instructions Indication:Non-smoker Start:31-Jan-2019 Instruction Type:Provider Instructions for Treatment How to access health informa tion online Indication:BMI 34.0-34.9,adult Start:22-Sep-2018 Instruction Type:Patient Education How to access health informa tion online - Detail Indication:BMI 34.0-34.9,adult Start:22-Sep-2018 Instruction Type:Patient Education Patient Instructions Indication:BMI 34.0-34.9,adult Start:22-Sep-2018 Instruction Type:Provider Instructions for Treatment How to access health informa tion online Indication:Nonsmoker Start:15-Jun-2018 Instruction Type:Patient Education How to access health informa tion online - Detail Indication:Nonsmoker Start:15-Jun-2018 Instruction Type:Patient Education Patient Instructions Indication:Nonsmoker Start:15-Jun-2018 Instruction Type:Provider Instructions for Treatment How to access health informa tion online Indication:Nonsmoker Start:26-Jan-2018 Instruction Type:Patient Education How to access health informa tion online - Detail Indication:Nonsmoker Start:26-Jan-2018 Instruction Type:Patient Education Patient Instructions Indication:Nonsmoker Start:26-Jan-2018 Instruction Type:Provider Instructions for Treatment How to access health informa tion online Indication:Nonsmoker Start:22-Sep-2017 Instruction Type:Patient Education How to access health informa tion online - Detail Indication:Nonsmoker Start:22-Sep-2017 Instruction Type:Patient Education Patient Instructions Indication:Nonsmoker Start:22-Sep-2017 Instruction Type:Provider Instructions for Treatment How to access health informa tion online Indication:Nonsmoker Start:19-May-2017 Instruction Type:Patient Education How to access health informa tion online - Detail Indication:Nonsmoker Start:19-May-2017 Instruction Type:Patient Education Patient Instructions Indication:Nonsmoker Start:19-May-2017 Instruction Type:Provider Instructions for Treatment How to access health informa tion online Indication:Impaired fasting glucose Start:04-Jan-2017 Instruction Type:Patient Education How to access health informa tion online - Detail Indication:Impaired fasting glucose Start:04-Jan-2017 Instruction Type:Patient Education Patient Instructions Indication:Impaired fasting glucose Start:04-Jan-2017 Instruction Type:Provider Instructions for Treatment How to access health informa tion online Indication:Nonsmoker Start:31-Aug-2016 Instruction Type:Patient Education How to access health informa tion online - Detail Indication:Nonsmoker Start:31-Aug-2016 Instruction Type:Patient Education Patient Instructions Indication:Nonsmoker Start:31-Aug-2016 Instruction Type:Provider Instructions for Treatment How to access health informa tion online Indication:BMI 36.0-36.9,adult Start:21-Apr-2016 Instruction Type:Patient Education How to access health informa tion online - Detail Indication:BMI 36.0-36.9,adult Start:21-Apr-2016 Instruction Type:Patient Education Patient Instructions Indication:BMI 36.0-36.9,adult Start:21-Apr-2016 Instruction Type:Provider Instructions for Treatment Patient Instructions Indication:Hyperglycemia Start:10-Nov-2015 Instruction Type:Provider Instructions for Treatment Patient Instructions Indication:Impaired fasting glucose Start:02-Jul-2014 Instruction Type:Provider Instructions for Treatment Patient Instructions Indication:Impaired fasting glucose Start:15-Jan-2014 Instruction Type:Provider Instructions for Treatment How to access health informa tion online Indication:Cough Start:22-Nov-2013 Instruction Type:Patient Education How to access health informa tion online - Detail Indication:Cough Start:22-Nov-2013 Instruction Type:Patient Education Patient Instructions Indication:Cough Start:22-Nov-2013 Instruction Type:Provider Instructions for Treatment How to access health informa tion online Indication:Impaired fasting glucose Start:16-Oct-2013 Instruction Type:Patient Education How to access health informa tion online - Detail Indication:Impaired fasting glucose Start:16-Oct-2013 Instruction Type:Patient Education Patient Instructions Indication:Impaired fasting glucose Start:16-Oct-2013 Instruction Type:Provider Instructions for Treatment Patient Instructions Indication:Paresthesia Start:13-Nov-2012 Instruction Type:Provider Instructions for Treatment Patient Instructions Indication:Impaired fasting glucose Start:17-Oct-2012 Instruction Type:Provider Instructions for Treatment Name Dates Details How to access health informa tion online Indication:BMI 36.0-36.9,adult Start:18-Oct-2019 Instruction Type:Patient Education How to access health informa tion online - Detail Indication:BMI 36.0-36.9,adult Start:18-Oct-2019 Instruction Type:Patient Education Patient Instructions Indication:BMI 36.0-36.9,adult Start:18-Oct-2019 Instruction Type:Provider Instructions for Treatment How to access health informa tion online Indication:Non-smoker Start:31-Jan-2019 Instruction Type:Patient Education How to access health informa tion online - Detail Indication:Non-smoker Start:31-Jan-2019 Instruction Type:Patient Education Patient Instructions Indication:Non-smoker Start:31-Jan-2019 Instruction Type:Provider Instructions for Treatment How to access health informa tion online Indication:BMI 34.0-34.9,adult Start:22-Sep-2018 Instruction Type:Patient Education How to access health informa tion online - Detail Indication:BMI 34.0-34.9,adult Start:22-Sep-2018 Instruction Type:Patient Education Patient Instructions Indication:BMI 34.0-34.9,adult Start:22-Sep-2018 Instruction Type:Provider Instructions for Treatment How to access health informa tion online Indication:Nonsmoker Start:15-Jun-2018 Instruction Type:Patient Education How to access health informa tion online - Detail Indication:Nonsmoker Start:15-Jun-2018 Instruction Type:Patient Education Patient Instructions Indication:Nonsmoker Start:15-Jun-2018 Instruction Type:Provider Instructions for Treatment How to access health informa tion online Indication:Nonsmoker Start:26-Jan-2018 Instruction Type:Patient Education How to access health informa tion online - Detail Indication:Nonsmoker Start:26-Jan-2018 Instruction Type:Patient Education Patient Instructions Indication:Nonsmoker Start:26-Jan-2018 Instruction Type:Provider Instructions for Treatment How to access health informa tion online Indication:Nonsmoker Start:22-Sep-2017 Instruction Type:Patient Education How to access health informa tion online - Detail Indication:Nonsmoker Start:22-Sep-2017 Instruction Type:Patient Education Patient Instructions Indication:Nonsmoker Start:22-Sep-2017 Instruction Type:Provider Instructions for Treatment How to access health informa tion online Indication:Nonsmoker Start:19-May-2017 Instruction Type:Patient Education How to access health informa tion online - Detail Indication:Nonsmoker Start:19-May-2017 Instruction Type:Patient Education Patient Instructions Indication:Nonsmoker Start:19-May-2017 Instruction Type:Provider Instructions for Treatment How to access health informa tion online Indication:Impaired fasting glucose Start:04-Jan-2017 Instruction Type:Patient Education How to access health informa tion online - Detail Indication:Impaired fasting glucose Start:04-Jan-2017 Instruction Type:Patient Education Patient Instructions Indication:Impaired fasting glucose Start:04-Jan-2017 Instruction Type:Provider Instructions for Treatment How to access health informa tion online Indication:Nonsmoker Start:31-Aug-2016 Instruction Type:Patient Education How to access health informa tion online - Detail Indication:Nonsmoker Start:31-Aug-2016 Instruction Type:Patient Education Patient Instructions Indication:Nonsmoker Start:31-Aug-2016 Instruction Type:Provider Instructions for Treatment How to access health informa tion online Indication:BMI 36.0-36.9,adult Start:21-Apr-2016 Instruction Type:Patient Education How to access health informa tion online - Detail Indication:BMI 36.0-36.9,adult Start:21-Apr-2016 Instruction Type:Patient Education Patient Instructions Indication:BMI 36.0-36.9,adult Start:21-Apr-2016 Instruction Type:Provider Instructions for Treatment Patient Instructions Indication:Hyperglycemia Start:10-Nov-2015 Instruction Type:Provider Instructions for Treatment Patient Instructions Indication:Impaired fasting glucose Start:02-Jul-2014 Instruction Type:Provider Instructions for Treatment Patient Instructions Indication:Impaired fasting glucose Start:15-Jan-2014 Instruction Type:Provider Instructions for Treatment How to access health informa tion online Indication:Cough Start:22-Nov-2013 Instruction Type:Patient Education How to access health informa tion online - Detail Indication:Cough Start:22-Nov-2013 Instruction Type:Patient Education Patient Instructions Indication:Cough Start:22-Nov-2013 Instruction Type:Provider Instructions for Treatment How to access health informa tion online Indication:Impaired fasting glucose Start:16-Oct-2013 Instruction Type:Patient Education How to access health informa tion online - Detail Indication:Impaired fasting glucose Start:16-Oct-2013 Instruction Type:Patient Education Patient Instructions Indication:Impaired fasting glucose Start:16-Oct-2013 Instruction Type:Provider Instructions for Treatment Patient Instructions Indication:Paresthesia Start:13-Nov-2012 Instruction Type:Provider Instructions for Treatment Patient Instructions Indication:Impaired fasting glucose Start:17-Oct-2012 Instruction Type:Provider Instructions for Treatment Name Dates Details How to access health informa tion online Indication:Nonsmoker Start:15-Jun-2018 Instruction Type:Patient Education How to access health informa tion online - Detail Indication:Nonsmoker Start:15-Jun-2018 Instruction Type:Patient Education Patient Instructions Indication:Nonsmoker Start:15-Jun-2018 Instruction Type:Provider Instructions for Treatment How to access health informa tion online Indication:Nonsmoker Start:26-Jan-2018 Instruction Type:Patient Education How to access health informa tion online - Detail Indication:Nonsmoker Start:26-Jan-2018 Instruction Type:Patient Education Patient Instructions Indication:Nonsmoker Start:26-Jan-2018 Instruction Type:Provider Instructions for Treatment How to access health informa tion online Indication:Nonsmoker Start:22-Sep-2017 Instruction Type:Patient Education How to access health informa tion online - Detail Indication:Nonsmoker Start:22-Sep-2017 Instruction Type:Patient Education Patient Instructions Indication:Nonsmoker Start:22-Sep-2017 Instruction Type:Provider Instructions for Treatment How to access health informa tion online Indication:Nonsmoker Start:19-May-2017 Instruction Type:Patient Education How to access health informa tion online - Detail Indication:Nonsmoker Start:19-May-2017 Instruction Type:Patient Education Patient Instructions Indication:Nonsmoker Start:19-May-2017 Instruction Type:Provider Instructions for Treatment How to access health informa tion online Indication:Impaired fasting glucose Start:04-Jan-2017 Instruction Type:Patient Education How to access health informa tion online - Detail Indication:Impaired fasting glucose Start:04-Jan-2017 Instruction Type:Patient Education Patient Instructions Indication:Impaired fasting glucose Start:04-Jan-2017 Instruction Type:Provider Instructions for Treatment How to access health informa tion online Indication:Nonsmoker Start:31-Aug-2016 Instruction Type:Patient Education How to access health informa tion online - Detail Indication:Nonsmoker Start:31-Aug-2016 Instruction Type:Patient Education Patient Instructions Indication:Nonsmoker Start:31-Aug-2016 Instruction Type:Provider Instructions for Treatment How to access health informa tion online Indication:BMI 36.0-36.9,adult Start:21-Apr-2016 Instruction Type:Patient Education How to access health informa tion online - Detail Indication:BMI 36.0-36.9,adult Start:21-Apr-2016 Instruction Type:Patient Education Patient Instructions Indication:BMI 36.0-36.9,adult Start:21-Apr-2016 Instruction Type:Provider Instructions for Treatment Patient Instructions Indication:Hyperglycemia Start:10-Nov-2015 Instruction Type:Provider Instructions for Treatment Patient Instructions Indication:Impaired fasting glucose Start:02-Jul-2014 Instruction Type:Provider Instructions for Treatment Patient Instructions Indication:Impaired fasting glucose Start:15-Jan-2014 Instruction Type:Provider Instructions for Treatment How to access health informa tion online Indication:Cough Start:22-Nov-2013 Instruction Type:Patient Education How to access health informa tion online - Detail Indication:Cough Start:22-Nov-2013 Instruction Type:Patient Education Patient Instructions Indication:Cough Start:22-Nov-2013 Instruction Type:Provider Instructions for Treatment How to access health informa tion online Indication:Impaired fasting glucose Start:16-Oct-2013 Instruction Type:Patient Education How to access health informa tion online - Detail Indication:Impaired fasting glucose Start:16-Oct-2013 Instruction Type:Patient Education Patient Instructions Indication:Impaired fasting glucose Start:16-Oct-2013 Instruction Type:Provider Instructions for Treatment Patient Instructions Indication:Paresthesia Start:13-Nov-2012 Instruction Type:Provider Instructions for Treatment Patient Instructions Indication:Impaired fasting glucose Start:17-Oct-2012 Instruction Type:Provider Instructions for Treatment Name Dates Details How to access health informa tion online Indication:Nonsmoker Start:15-Jun-2018 Instruction Type:Patient Education How to access health informa tion online - Detail Indication:Nonsmoker Start:15-Jun-2018 Instruction Type:Patient Education Patient Instructions Indication:Nonsmoker Start:15-Jun-2018 Instruction Type:Provider Instructions for Treatment How to access health informa tion online Indication:Nonsmoker Start:26-Jan-2018 Instruction Type:Patient Education How to access health informa tion online - Detail Indication:Nonsmoker Start:26-Jan-2018 Instruction Type:Patient Education Patient Instructions Indication:Nonsmoker Start:26-Jan-2018 Instruction Type:Provider Instructions for Treatment How to access health informa tion online Indication:Nonsmoker Start:22-Sep-2017 Instruction Type:Patient Education How to access health informa tion online - Detail Indication:Nonsmoker Start:22-Sep-2017 Instruction Type:Patient Education Patient Instructions Indication:Nonsmoker Start:22-Sep-2017 Instruction Type:Provider Instructions for Treatment How to access health informa tion online Indication:Nonsmoker Start:19-May-2017 Instruction Type:Patient Education How to access health informa tion online - Detail Indication:Nonsmoker Start:19-May-2017 Instruction Type:Patient Education Patient Instructions Indication:Nonsmoker Start:19-May-2017 Instruction Type:Provider Instructions for Treatment How to access health informa tion online Indication:Impaired fasting glucose Start:04-Jan-2017 Instruction Type:Patient Education How to access health informa tion online - Detail Indication:Impaired fasting glucose Start:04-Jan-2017 Instruction Type:Patient Education Patient Instructions Indication:Impaired fasting glucose Start:04-Jan-2017 Instruction Type:Provider Instructions for Treatment How to access health informa tion online Indication:Nonsmoker Start:31-Aug-2016 Instruction Type:Patient Education How to access health informa tion online - Detail Indication:Nonsmoker Start:31-Aug-2016 Instruction Type:Patient Education Patient Instructions Indication:Nonsmoker Start:31-Aug-2016 Instruction Type:Provider Instructions for Treatment How to access health informa tion online Indication:BMI 36.0-36.9,adult Start:21-Apr-2016 Instruction Type:Patient Education How to access health informa tion online - Detail Indication:BMI 36.0-36.9,adult Start:21-Apr-2016 Instruction Type:Patient Education Patient Instructions Indication:BMI 36.0-36.9,adult Start:21-Apr-2016 Instruction Type:Provider Instructions for Treatment Patient Instructions Indication:Hyperglycemia Start:10-Nov-2015 Instruction Type:Provider Instructions for Treatment Patient Instructions Indication:Impaired fasting glucose Start:02-Jul-2014 Instruction Type:Provider Instructions for Treatment Patient Instructions Indication:Impaired fasting glucose Start:15-Jan-2014 Instruction Type:Provider Instructions for Treatment How to access health informa tion online Indication:Cough Start:22-Nov-2013 Instruction Type:Patient Education How to access health informa tion online - Detail Indication:Cough Start:22-Nov-2013 Instruction Type:Patient Education Patient Instructions Indication:Cough Start:22-Nov-2013 Instruction Type:Provider Instructions for Treatment How to access health informa tion online Indication:Impaired fasting glucose Start:16-Oct-2013 Instruction Type:Patient Education How to access health informa tion online - Detail Indication:Impaired fasting glucose Start:16-Oct-2013 Instruction Type:Patient Education Patient Instructions Indication:Impaired fasting glucose Start:16-Oct-2013 Instruction Type:Provider Instructions for Treatment Patient Instructions Indication:Paresthesia Start:13-Nov-2012 Instruction Type:Provider Instructions for Treatment Patient Instructions Indication:Impaired fasting glucose Start:17-Oct-2012 Instruction Type:Provider Instructions for Treatment Summary Purpose Family History No Family History Records Found Advance Directives No Advanced Directives Records Found Additional Source Comments INFORMATION SOURCE (unrecogn ized section and content) FOR RECORDS PERTAINING TO PATIENTS WHO ARE OR HAVE BEEN ENROLLED IN A CHEMICAL DEPENDENCY/SUBSTANCEABUSE PROGRAM, SOME INFORMATION MAY BE OMITTED. This clinical summary was aggregated from multiple sources. Caution should be exercised in using it in the provision of clinical care. This summary normalizes information from multiple sources, and as a consequence, information in this document may materially change the coding, format and clinical context of patient data. In addition, data may be omitted in some cases. CLINICAL DECISIONS SHOULD BE BASED ON THE PRIMARY CLINICAL RECORDS. [email or web address] provides no warranty or guarantee of the accuracy or completeness of information in this document.
[2023-03-28 10:37] LABS: Bedside Glucose 99 mg/dL (74-106)
--- NOTE | 2023-03-28 11:00 | COLBX_PTH ---
PATHOLOGY RESULTS PATIENT: JOHAN PERDOMO LOC: EN U#:[id number] AGE/SX: 52/F ROOM: RE03/28/[address]: Dr. Roderick Champagne DO : 1970 BED: DIS: 03/28/2023 SPEC #: [id number] RECD: 03/28/23 13:22 STATUS: DALE GENESIS #: [id number] TIA: 03/28/23 11:[address]: Roderick Champagne DEPT: SURGICAL PATHOLOGY RECD BY: Keisha Tidwell ENTERED: 03/28/23 13:23 SP TYPE: COLON BX OTHR DR: Dr. Jeanne Archibald DO Tissues: SPLENIC FLEXURE Procedures: Surgery Specimen Level IV HEADER OPERATION: Colonoscopy, biopsy PRE-OP DIAGNOSIS: Screening TISSUE SUBMITTED: Splenic flexure polyp biopsy MICROSCOPIC DIAGNOSIS Colonic polyp at splenic flexure, biopsy: Tubular adenoma. AM:aline 03/29/2023 MICROSCOPIC DESCRIPTION Slides are reviewed. GROSS DESCRIPTION Received in fixative is one container labeled with the patient's name and designated splenic flexure polyp. The specimen consists of one irregular fragment of light maya soft tissue that measures 0.5 x 0.5 x 0.1 cm. The specimen is totally submitted in one cassette. / AM:aline 03/28/2023 TC:5 CPT: 09852
[2023-03-28 11:27] VITALS: BP 109/68; BP 127/79; PULSE 72; RESP 18; TEMP 36; O2SAT 100
--- NOTE | 2023-03-28 11:28 | OP.COLON_ITS ---
Patient Name: Reshma Cochran Procedure Date: 03/28/2023 10:57 AM Date of : 1970 Age: 52 Procedure: Colonoscopy Indications: Screening for colorectal malignant neoplasm Providers: Roderick Champagne DO Referring MD: Jeanne Archibald Medicines: Monitored Anesthesia Care Patient Profile: This is a 52 year old female. Refer to note in patient chart for documentation of history and physical. Last Colonoscopy: none. The patient's first colonoscopy is today. Complications: No immediate complications. Procedure: Pre-Anesthesia Assessment: - Prior to the procedure, a History and Physical was performed, and patient medications and allergies were reviewed. The patient is competent. The risks and benefits of the procedure and the sedation options and risks were discussed with the patient. All questions were answered and informed consent was obtained. Patient identification and proposed procedure were verified by the physician in the pre-procedure area. Mental Status Examination: alert and oriented. Airway Examination: normal oropharyngeal airway and neck mobility. Respiratory Examination: clear to auscultation. CV Examination: normal. Prophylactic Antibiotics: The patient does not require prophylactic antibiotics. Prior Anticoagulants: The patient has taken no anticoagulant or antiplatelet agents. ASA Grade Assessment: II - A patient with mild systemic disease. After reviewing the risks and benefits, the patient was deemed in satisfactory condition to undergo the procedure. The anesthesia plan was to use monitored anesthesia care (MAC). Immediately prior to administration of medications, the patient was re-assessed for adequacy to receive sedatives. The heart rate, respiratory rate, oxygen saturations, blood pressure, adequacy of pulmonary ventilation, and response to care were monitored throughout the procedure. The physical status of the patient was re-assessed after the procedure. After I obtained informed consent, the scope was passed under direct vision. Throughout the procedure, the patient's blood pressure, pulse, and oxygen saturations were monitored continuously. The colonoscope was introduced through the anus and advanced to the cecum, identified by appendiceal orifice and ileocecal valve. The colonoscopy was performed without difficulty. The patient tolerated the procedure well. The quality of the bowel preparation was adequate. The ileocecal valve, appendiceal orifice, and rectum were photographed. Scope In: 11:09:20 AM Scope Withdrawal Time 0 hours 9 minutes 40 seconds Scope Out: 11:23:19 AM Total Procedure Duration Time 0 hours 13 minutes 59 seconds Findings: The perianal and digital rectal examinations were normal. A few small-mouthed diverticula were found in the recto-sigmoid colon. A 4 mm polyp was found in the splenic flexure. The polyp was sessile. The polyp was removed with a cold snare. Resection and retrieval were complete. Verification of patient identification for the specimen was done. Estimated blood loss was minimal. The exam was otherwise without abnormality on direct and retroflexion views. Impression: - Diverticulosis in the recto-sigmoid colon. - One 4 mm polyp at the splenic flexure, removed with a cold snare. Resected and retrieved. - The examination was otherwise normal on direct and retroflexion views. Recommendation: - Discharge patient to home. - Resume previous diet. - Continue present medications. - Await pathology results. - Repeat colonoscopy in 5 years for surveillance. Procedure Code(s): --- Professional --- 87558, Colonoscopy, flexible; with removal of tumor(s), polyp(s), or other lesion(s) by snare technique CPT copyright 2021 [employer]. All rights reserved. The codes documented in this report are preliminary and upon credit card associate review may be revised to meet current compliance requirements. Roderick Champagne DO 03/28/2023 11:28:01 AM This report has been signed electronically. Number of Addenda: 0 Note Initiated On: 03/28/2023 10:57 AM
--- NOTE | 2023-03-28 11:28 | OP.CCLET_ITS ---
03/28/2023 Jeanne Archibald [address] [place] [address] Re : Colonoscopy procedure for Reshma Cochran Dear Dr. Archibald This procedure was performed on Tuesday, March 28, 2023. My impressions and recommendations are as follows: Impressions : - Diverticulosis in the recto-sigmoid colon. - One 4 mm polyp at the splenic flexure, removed with a cold snare. Resected and retrieved. - The examination was otherwise normal on direct and retroflexion views. Recommendations : - Discharge patient to home. - Resume previous diet. - Continue present medications. - Await pathology results. - Repeat colonoscopy in 5 years for surveillance. My findings are described in the full procedure note, which is enclosed. If I can be of further assistance, please feel free to contact me at . Sincerely, Roderick Champagne, 03/28/2023 11:28:01 AM This report has been signed electronically.
[2023-03-28 11:30] VITALS: BP 105/70; BP 127/79; PULSE 69; RESP 16; O2SAT 100
[2023-03-28 11:35] VITALS: BP 107/75; BP 127/79; PULSE 71; RESP 16; O2SAT 100
[2023-03-28 11:45] VITALS: BP 104/77; BP 127/79; PULSE 73; RESP 18; TEMP 36.1; O2SAT 100
[2023-03-28 12:07] VITALS: BP 127/79
== END 2023-03-28 12:19 | disposition home or self-care (01) ==
LOC: EN 09:50 → AC 09:51
PROVIDERS: PCP Internal Medicine; Referring Provider Internal Medicine; Visit Provider Internal Medicine Gastroenterology
PROC: 0DJD8ZZ Inspection of Lower Intestinal Tract, Via Natural or Artificial Opening Endoscopic (ICD-10-PCS; CPT 45378; principal; 2023-03-28 10:55)
DX: Z12.11 Encounter for screening for malignant neoplasm of colon (principal); E11.9 Type 2 diabetes mellitus without complications; R74.01 Elevation of levels of liver transaminase levels; K57.90 Diverticulosis of intestine, part unspecified, without perforation or abscess without bleeding; D12.3 Benign neoplasm of transverse colon; Z79.84 Long term (current) use of oral hypoglycemic drugs; E66.8 Other obesity
CPT/HCPCS: 45385; 82962; 88305; J7120; J2405

== ENCOUNTER → 2023-05-11 | Outpatient (CLI) | payer OTHER, SELFPAY ==
--- NOTE | 2023-05-11 07:13 | US_ITS ---
STUDY: ABDOMINAL ULTRASOUND - RIGHT UPPER QUADRANT; ELASTOGRAPHY REASON FOR VISIT: Female, 52 years old. Fatty liver. TECHNIQUE: Ultrasound evaluation of the right upper quadrant was performed with real-time and static quick-scale imaging. Point quantification shear wave elastography was performed ([employer] TECHNICAL QUALITY: Adequate. COMPARISON: Comparison is made with prior study dated August 12, 2022. FINDINGS: Liver: The liver is mildly enlarged and measures 17.3 cm. There is increased echogenicity consistent with fatty infiltration. The bile ducts are within normal limits. There is hepatic color flow. The direction of portal flow is hepatopetal. There is no demonstrated mass lesion. Median liver stiffness measured 7.6 kPa. Gallbladder: Normal distended gallbladder. The gallbladder wall measures 2.4 mm. There is a negative sonographic Casey''s sign. There is no pericholecystic fluid. There are no gallstones. There is evidence of a 2.8 mm gallbladder polyp adherent to the gallbladder wall. Common Bile Duct (C.B.D.): The common bile duct measures 3.8 mm. Pancreas: There is normal echogenicity of the visualized pancreas. There is no demonstrated pancreatic mass or cyst. Right Kidney: Normal size of the right kidney. The right kidney measures 10.7 cm x 5.1 cm x 5.3 cm. Normal renal cortex. The right cortex measures 1.1 cm. There is no demonstrated renal mass or cyst. There is no right hydronephrosis. There is evidence of 2 nonobstructive right intrarenal calculi. The larger calculus measures 1 cm. US/ABD Limited w/ Elastography IMPRESSION: 1. Liver stiffness measures 7.6 kPa compatible with F2-F3 (Mild to moderate liver fibrosis) Metavir score. Electronically Signed: Breezy Valles MD at 15:52 EDT ,
== END | disposition home or self-care (01) ==
LOC: US 07:13
PROVIDERS: PCP Nurse Practitioner; Referring Provider Internal Medicine Gastroenterology; Visit Provider Internal Medicine Gastroenterology
DX: R74.01 Elevation of levels of liver transaminase levels (principal); K76.0 Fatty (change of) liver, not elsewhere classified
CPT/HCPCS: 76705; 76981

== ENCOUNTER → 2023-05-13 | Outpatient (CLI) | payer OTHER, SELFPAY ==
[2023-05-13 10:00] LABS: Vitamin B12 438 pg/mL (211-911)
[2023-05-13 10:03] LABS: Cholesterol 200 mg/dL (200); High Density Lipoprotein 59 mg/dL; T4 Free Direct 1.11 ng/dL (0.76-1.46); Thyroid Stim Hormone (TSH) 0.92 uIU/mL (0.358-3.74); Triglycerides 137 mg/dL; Very Low Density Lipoprotein 27 mg/dL (5-40)
[2023-05-13 10:15] LABS: Hemoglobin A1c 5.8 % (3.8-5.6)
== END | disposition home or self-care (01) ==
LOC: LAB 09:08
PROVIDERS: PCP Nurse Practitioner; Referring Provider Nurse Practitioner; Visit Provider Nurse Practitioner
DX: I10 Essential (primary) hypertension (principal); R73.03 Prediabetes; E04.1 Nontoxic single thyroid nodule; E53.8 Deficiency of other specified B group vitamins
CPT/HCPCS: 36415; 80061; 82607; 83036; 84439; 84443

== ENCOUNTER 2024-05-22 19:55 | Observation (INO) | payer OTHER, SELFPAY ==
[2024-05-22] VITALS (8 sets, daily range): BP systolic 131–165; BP diastolic 82–102; PULSE 80–97; RESP 16–20; TEMP 36.2–36.6; O2SAT 97–99; BMI 33.5; BMI 34.4
--- NOTE | 2024-05-22 20:04 | CT_ITS ---
PROCEDURE: STROKE BRAIN/HEAD WITHOUT CONT 05/22/2024 REASON FOR EXAM: NEURO DEFICIT, ACUTE, STROKE SUSPECTED TECHNIQUE: Head CT without intravenous contrast. Coronal and Sagittal reconstruction series were provided. One or more dose reduction techniques were used (e.g., Automated exposure control, adjustment of the mA and/or kV according to patient size, use of iterative reconstruction technique. COMPARISON: None FINDINGS: * ACUTE: No acute infarct or hemorrhage. No mass effect or herniation. * BRAIN PARENCHYMA: Signal intensities are within normal limits for age. * VENTRICLES/EXTRA-AXIAL SPACES: No hydrocephalus or extra-axial fluid collections. * EXTRACRANIAL STRUCTURES: Visualized osseous structures are normal. Soft tissues are normal. CT/STROKE Brain/Head without Cont IMPRESSION: No acute intracranial abnormality; no acute infarct, intracranial hemorrhage or extra-axial collection. Reading Location: [facility]
--- NOTE | 2024-05-22 20:04 | EKG12_ITS ---
Test Reason : DYSRHYTHMIA Blood Pressure : */* mmHG Vent. Rate : 89 BPM Atrial Rate : 89 BPM P-R Int : 160 ms QRS Dur : 80 ms QT Int : 388 ms P-R-T Axes : 20 18 24 degrees QTcB Int : 472 ms Normal sinus rhythm Nonspecific ST abnormality Abnormal ECG Confirmed by DEV TAYLOR, GALI ([id number]), order editor TAYLOR LYLE ([id number]) on 05/24/2024 8:32:08 AM Referred By: Confirmed By: GALI MÉNDEZ MD
--- NOTE | 2024-05-22 20:04 | CT_ITS ---
PROCEDURE: STROKE CTA HEAD AND NECK W/CON 05/22/2024 REASON FOR EXAM: NEURO DEFICIT, ACUTE, STROKE SUSPECTED TECHNIQUE: CTA imaging of the head and neck from the aortic arch to the skull vertex with intravenous contrast. Coronal and Sagittal reconstruction series were provided. 3D, 3D post processing, 3D reconstructions, Maximum intensity projection (MIPs) Volume rendering and Shaded surface rendering was provided. CONTRAST: Omnipaque 350 VOLUME: 100 mL Not Provided Gauge IV One or more dose reduction techniques were used (e.g., Automated exposure control, adjustment of the mA and/or kV according to patient size, use of iterative reconstruction technique). # of known CTs in the past 12 months: 0 # of known Cardiac Nuclear Medicine Studies in the past 12 months: 0 COMPARISON: None FINDINGS: Aortic Arch: Normal size and branching pattern. No significant atherosclerotic plaque. Brachiocephalic and Subclavians: Unremarkable RIGHT Carotid: Right CCA: Unremarkable. Right ICA: Unremarkable. Maximum stenosis (NASCET): 0 % Right ECA: Unremarkable. LEFT Carotid: Left CCA: Unremarkable. Left ICA: Unremarkable. Maximum stenosis (NASCET): 0 % Left ECA: Unremarkable. Vertebrals: Right vertebral artery dominance. Arise from the subclavians. Both vertebrals form the basilar. RIGHT Vertebral: Unremarkable. LEFT Vertebral: Unremarkable. Anatomy: [place] of Singh anatomy is normal. Aneurysm or avm: No intracranial aneurysms or large vascular malformations are identified. Anterior cerebral arteries: Unremarkable: Middle cerebral arteries: Unremarkable. Basilar artery: Unremarkable. Posterior cerebral arteries: Unremarkable. Other major branches of the posterior circulation: Unremarkable. Major venous structures: Unremarkable. Other findings: Neck: No lymphadenopathy. Multiple subcentimeter low- attenuation thyroid nodules. Lungs: Lung apices are clear. Bones: Bones are unremarkable. CT/STROKE CTA Head AND Neck W/Con IMPRESSION: Patent anterior and posterior intracranial and extracranial circulation without hemodynamically significant stenosis. Reading Location: [facility]
--- NOTE | 2024-05-22 20:06 | EDS_ITS ---
HPI History of Present Illness Chief Complaint: Dizziness Informant: patient and friend Narrative Narrative: 53-year-old female presenting to the emergency room for the chief complaint of dizziness. Patient states that around 1600 after working the day she noticed some mild dizziness. At around 1830 hrs. she noticed that the dizziness was getting worse and was associated with nausea. She denies any pain with it. She denies any prior occurrences. She denies any arm or leg symptoms vision changes or speech difficulty. She notes that she is on metformin and takes supplements. Patient describes dizziness [place] on [place]. She states that it occasi onally is positional/worse with movements but not typically. She denies any recent illnesses. She is not on any blood thinners. A coworker accompanies her notes that she seems very unsteady on her feet. [facility] Medical History Vitamin B 12 deficiency Post-menopausal Wears glasses History of renal disease Fatty liver Dietary restriction Non-smoker Kidney stone Multinodular goiter Diabetes Home Medications ?Medication ?Instructions ?Recorded ?Last Taken ?Type phentermine 37.5 mg tablet 18.75 mg (1/2 x 37.5 mg) PO QDAY 04/25/24 Unknown Rx (Adipex-P) #16 tabs metformin 500 mg tablet,extended 1,000 mg PO DAILY 10/08 Unknown History release 24 hr Allergy/AdvReac Type Severity Reaction Status Date / Time pork derived (porcine) Allergy Intermediate unknown Verified 05/22/24 20:13 Family History Father High cholesterol Heart disease Myocardial infarction, Onset Age: 74 Cancer skin Grandfather Colon cancer Grandmother Heart disease Daughter Autoimmune disease Mother Cancer skin Hypertension Surgical History History of bunionectomy of right great toe history uterine ablation History of Social History household members: spouse housing: house number of children: 3 current occupational status: employed 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 [employer] Smoking Status: Never smoker alcohol intake: never substance use type: does not use what type of physical activity do you participate in: walking frequency: 1-2 times per week seatbelt use: always do you feel safe at home: Yes additional social history: -[employer]ordon- [employer] ROS ROS ED Constitutional Constitutional ED: Denies chills, fever(s) or weight loss Eyes Eyes: Denies change in vision or diplopia ENT ENT ED: Denies ear pain, rhinorrhea or sore throat Cardiovascular Cardiovascular: Denies chest pain, orthopnea, palpitations or racing heartbeat Respiratory/Chest Respiratory/Chest: Denies cough, dyspnea or orthopnea Gastrointestinal Gastrointestinal: Denies abdominal pain, diarrhea, nausea or vomiting Genitourinary Genitourinary ED: Denies dysuria, hematuria or urinary frequency Musculoskeletal Musculoskeletal: Denies arthralgias, myalgias or neck pain Integumentary Denies abscess or rash Neurologic Neurologic: Reports other Details: Dizziness ; Denies headache(s), paresthesias or weakness Psychiatric Psychiatric: Denies anxiety, depression, suicidal ideation or suicidal thoughts Endocrine Endocrinology: Denies polydipsia, polyphagia or polyuria Allergic/Immunologic Allergic/Immunologic ED: Denies mouth swelling, tongue swelling or urticaria EXAM Physical Exam Const Vital Signs: 05/22/24 20:03 05/22/24 20:04 05/22/24 20:04 Temperature 97.1 F L 97.1 F L Temperature Source Temporal Temporal Pulse Rate 97 97 Respiratory Rate 19 H 20 H Blood Pressure 156/102 H 165/102 H Blood Pressure Mean 120 123 Pulse Ox 98 97 98 Oxygen Delivery Method Room Air Room Air Room Air 05/22/24 20:04 05/22/24 20:34 05/22/24 20:42 Temperature 97.4 F L Temperature Source Pulse Rate 97 91 86 Respiratory Rate 16 16 17 Blood Pressure 142/82 H 142/82 H Blood Pressure Mean 102 102 Pulse Ox 98 98 97 Oxygen Delivery Method Room Air Room Air Positive well nourished and well developed General Appearance ED: well developed and NAD HEENT Reports normocephalic, head/scalp atraumatic and moist mucous membranes Eyes PERRL and EOMs intact bilaterally Neck no lymphadenopathy, supple and no JVD Resp normal respiratory effort and clear to auscultation bilaterally Cardio regular rate, regular rhythm and no murmurs GI normal to inspection, nondistended, normoactive bowel sounds and non-tender Palpation: soft Back/Spine no CVA tenderness and normal ROM Extremity normal to inspection General Extremety ED: Negative for edema General Extremity: Negative for edema Neuro oriented x3 and CN's II-XII intact bilaterally Sensorium / Orientation: alert Motor Exam: strength 5/5 throughout Psych mental status grossly normal Mood & Affect: Negative for depressed or tearful Skin no rashes or lesions noted and no wounds MDM MDM MDM Narrative Medical decision making narrative: Differential diagnosis includes but not limited to central peripheral vertigo posterior circulation stroke hemorrhage malignancy dissection Stroke team was activated patient was taken to CT for CT of the brain and CTA head and neck. [facility] neurology beamed into the room evaluated the patient. She is obviously outside the tPA window. Do not see evidence of dissection or LVO on CTA. Basic blood works obtained essentially negative. Glucose noted be 124. Manage interpretation the chest x-ray is no acute process. EKG is sinus rhythm with no concerning features. Patient received Zofran with good improvement of her nausea. We also administered Valium for possible BPV. Because of the concern for posterior circulation stroke patient will be admitted for further management. History & Record Review Discussion w/independent historian: Patient Lab Data Attestation: I reviewed the patient's lab results. Labs: Laboratory Results - last 24 hr 05/22/24 20:00 WBC 10.1 RBC 4.63 Hgb 14.1 Hct 40.4 MCV 87.3 MCH 30.5 MCHC 34.9 RDW Std Deviation 42.3 RDW Coeff of Delmis 13.3 Plt Count 286 MPV 10.1 Immature Gran % (Auto) 0.400 Neut % (Auto) 58.3 Lymph % (Auto) 32.2 [place] % (Auto) 6.3 Eos % (Auto) 2.2 Baso % (Auto) 0.6 Absolute Neuts (auto) 5.9 Absolute Lymphs (auto) 3.26 Nucleated RBC % 0 PT 12.5 INR 0.9 APTT 25.4 Sodium 139 Potassium 3.6 Chloride 101 Carbon Dioxide 23.5 Anion Gap 14 BUN 11 Creatinine 0.73 Estim Creat Clear Calc 90.36 Est GFR (MDRD) Non-Af 99 BUN/Creatinine Ratio 14.9 Glucose 124 H Calcium 9.6 Troponin T High Sens 6 Radiography Diagnostic Testing: Clinical Impression(s) from Imaging Studies Brain CT 05/22/24 20:04 IMPRESSION: No acute intracranial abnormality; no acute infarct, intracranial hemorrhage or extra-axial collection. Reading Location: [facility] Head/Neck CTA 05/22/24 20:04 IMPRESSION: Patent anterior and posterior intracranial and extracranial circulation without hemodynamically significant stenosis. Reading Location: [facility] EKG Initial EKG: Attestation: I personally reviewed and interpreted this EKG as follows: Comments: Normal sinus rhythm ventricular rate of 89 bpm. Management Discussion w/another healthcare provider: Hospitalist (Dr Cruz) Stroke Documentation Questions Stroke Team Activated: Yes Reviewed Inclusion/Exclusion criteria: Yes Was Patient considered for Endovascular Intervention?: No-CTA negative, determined not to be an endovascular candidate IV Thrombolytic Administered: No No contraindications from thrombolytic administration: No Risks, Benefits, Alternatives Discussed: No Not given: Patient refusal: No Discharge Plan Dx/Rx/DC Orders Clinical Impression: Dizziness Disposition Disposition: Acute Care Hospital [facility] NIHSS NIHSS 1a. Level of Consciousness: Alert; keenly responsive 1c. LOC Commands: Performs both tasks correctly. 2. Best Gaze: Normal 3. Visual: No visual loss 4. Facial Palsy: Normal symmetrical movements 5a. Left Arm: No drift; arm holds 90 (or 45) degrees for full 10 seconds 5b. Right Arm: No drift; arm holds 90 (or 45) degrees for full 10 seconds 6a. Left Leg: No drift; leg holds 30-degree position for full 5 seconds 6b. Right Leg: No drift; leg holds 30-degree position for full 5 seconds 7. Limb Ataxia: Absent 8. Sensory: Normal; no sensory loss 9. Best Language: No aphasia; normal 11. Extinction and Inattention: No abnormality Total: 0 Stroke Questions Stroke Team Activated: Yes a.Reviewed Inclusion/Exclusion criteria: Yes IV Thrombolytic Administered: No No contraindications from thrombolytic administration: No
[2024-05-22] MEDS: Ondansetron 4 MG/2 ML Vial IV (20:09)
[2024-05-22 20:19] LABS: Absolute Lymphocyte Count 3.26 X10^3/uL (0.83-4.51); Absolute Neutrophil Count 5.9 X10^3/uL (2.0-7.7); Basophil# 0.06 X10^3/uL; Basophil% 0.6 % (0-1); Eosinophil# 0.22 X10^3/uL; Eosinophils% 2.2 % (0-5); Hematocrit 40.4 % (37-47); Hemoglobin 14.1 g/dL (12.0-15.0); Lymphocyte # 3.26 X10^3/ul (0.83-4.51); Lymphocyte % 32.2 % (19-41); Mean Corp Hgb Conc 34.9 g/dL (32-36); Mean Corpuscular Hgb 30.5 pg (27.0-32.0); Mean Corpuscular Volume 87.3 fL (81-99); Mean Platelet Vol. 10.1 fl (6.2-12.0); Monocyte# 0.64 X10^3/uL; Monocyte% 6.3 % (0-10); NRBC Flagged by Analyzer 0 % (0-5); Neutrophil # 5.89 X10^3/uL (2.7-7.7); Neutrophil % 58.3 % (47-70); Platelet Count 286 K/mm3 (150-450); RBC Distribution Width CV 13.3 % (11.6-14.6); RBC Distribution Width SD 42.3 fl (35.1-43.9); Red Blood Count 4.63 M/mm3 (4.2-5.4); White Blood Count 10.1 K/mm3 (4.4-11.0)
[2024-05-22 20:28] LABS: International Normalized Ratio 0.9; Prothrombin Time (Protime)PT. 12.5 SECONDS (11.7-14.9)
[2024-05-22 20:29] LABS: Partial Thromboplast Time 25.4 Seconds (24.1-36.2)
--- NOTE | 2024-05-22 20:41 | RAD_ITS ---
PROCEDURE: CHEST 1 VIEW 05/22/2024 REASON FOR EXAM: NEURO DEFICIT, ACUTE, STROKE SUSPECTED TECHNIQUE: Frontal view of the chest. COMPARISON: None FINDINGS: Hardware: None Heart: Cardiac and mediastinal contours are stable. Lungs: No focal consolidation. No pneumothorax. No pleural effusion. Bones: The bones are unremarkable. Other: RAD/Chest 1 View IMPRESSION: No Acute Findings. Reading Location: [facility]
[2024-05-22 20:43] LABS: Anion Gap 14 (5-15); BUN 11 mg/dL (4-19); BUN/Creat Ratio 14.9 RATIO (10-20); Calcium,Total 9.6 mg/dL (7.6-11.0); Carbon Dioxide 23.5 mmol/L (21.0-32.0); Chloride 101 mmol/L (98-108); Creatinine, Serum 0.73 mg/dL (0.70-1.20); EST Glomerular Filtration Rate 99 (>60); Estimated Creatinine Clearance 90.36 ml/min (50-250); Glucose 124 mg/dL (70-99); Potassium 3.6 mmol/L (3.3-5.1); Sodium Level 139 mmol/L (133-145); Troponin T High Sensitivity 6 ng/L (<=14)
[2024-05-22] MEDS: diazePAM 5 MG Tablet PO (20:45)
--- NOTE | 2024-05-22 21:28 | PCM.HP.STD ---
HPI - General General Date of Admission: 05/22/24 Date of Service: 05/22/24 Chief Complaint: Dizziness HPI Narrative JOHAN PERDOMO, is a 53 F who presented to the emergency department at [facility] on 05/22/2024 with a chief complaint of acute onset dizziness that started at 4 PM. Patient states she was working her regular day and felt fine in the morning. About 1600 she started having a swimming sensation in her head that slowly progressed to dizziness associated with nausea that was fairly persistent by 1830.. She denies any tingling numbness or weakness in extremity and had no other associated symptoms. At the time of my evaluation she was complaining of a mild headache but was otherwise feeling better after being given Zofran and 5 mg Valium in the emergency department. Given her persistent dizziness that was severe with nausea a stroke team was called by the emergency department physician. She denies having anything like this previously. Vital signs on presentation demonstrated temperature of 97.1, heart rate 97, blood pressure was 156/102, respiratory rate was 19 and pulse ox was 98% on room air. CBC was unremarkable. Coags were normal. Chemistry panel was normal other than mild hyperglycemia with a blood glucose level of 124 and patient is a known diabetic. Troponin was 6. EKG was unremarkable with normal intervals and no ST-T wave changes concerning for acute ischemia, chest x-ray was unremarkable for any acute findings, CT of the brain was unremarkable for acute findings, CTA of the head and neck was unremarkable for acute findings. Given persistent dizziness and nausea. Patient was given Zofran and Valium. She was evaluated by stroke neurologist tenecteplase was not recommended and no LVO was present. Admission for MRI and stroke workup was recommended. [facility] Medical History Vitamin B 12 deficiency Post-menopausal Wears glasses History of renal disease Fatty liver Dietary restriction Non-smoker Kidney stone Multinodular goiter Diabetes Home Medications ?Medication ?Instructions ?Recorded ?Last Taken ?Type phentermine 37.5 mg tablet 18.75 mg (1/2 x 37.5 mg) PO QDAY 04/25/24 Unknown Rx (Adipex-P) #16 tabs metformin 500 mg tablet,extended 1,000 mg PO DAILY 05/22/24 Unknown History release 24 hr Allergy/AdvReac Type Severity Reaction Status Date / Time pork derived (porcine) Allergy Intermediate unknown Verified 05/22/24 20:13 Family History Father High cholesterol Heart disease Myocardial infarction, Onset Age: 74 Cancer skin Grandfather Colon cancer Grandmother Heart disease Daughter Autoimmune disease Mother Cancer skin Hypertension Surgical History History of bunionectomy of right great toe history uterine ablation History of Social History (Updated 05/22/24 @ 21:[address] 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 ROS Constitutional Constitutional: Reports change in weight; Denies anorexia, chills, fatigue, fever(s), malaise, night sweats, weakness or other Eyes Eyes: Denies blurry vision, change in eye color, change in vision, discharge from eye(s), double vision, erythema, eye pain, loss of vision or other ENT HEENT: Denies abnormal hearing, dysphagia, ear pain, epistaxis, headache(s), hearing loss, nasal congestion, nasal discharge, post nasal drip, sinus pressure, sore throat or other Cardiovascular Cardiovascular: Denies chest pain, claudication, dyspnea on exertion, edema, lightheadedness, orthopnea, palpitations, paroxysmal nocturnal dyspnea, rapid heart rate, syncope or other Respiratory/Chest Respiratory/Chest: Denies cough, dyspnea, excessive phlegm production, hemoptysis, productive cough, shortness of breath at rest, shortness of breath with exertion, wheezing or other Gastrointestinal Gastrointestinal: Reports nausea; Denies abdominal pain, coffee ground emesis, constipation, diarrhea, dyspepsia, hematemesis, hematochezia, loose stools, melena, vomiting or other Genitourinary Genitourinary: Denies burning urination, difficulty urinating, dysuria, hematuria, nocturia, urinary frequency, urinary hesitancy, urinary incontinence, urinary urgency or other Musculoskeletal Musculoskeletal: Denies arthralgias, back pain, joint pain, joint stiffness, joint swelling, myalgias, neck pain or other Neurologic Neurologic: Reports disequilibrium, dizziness and headache(s); Denies abnormal gait, abnormal speech, confusion, focal weakness, numbness, paresthesias, seizure-like activity, seizures, syncope, tingling, tremor(s) or other Psychiatric Psychiatric: Denies anxiety, depression, homicidal ideation, suicidal ideation or other Endocrine Endocrinology: Denies change in body appearance, cold intolerance, excessive sweating, heat intolerance, polydipsia, polyuria or other Hematologic/Lymphatic Hematologic/Lymphatic: Denies anemia, easy bleeding, easy bruising, lymphadenopathy or other Allergic/Immunologic Allergic/Immunologic: Denies rhinitis, hives, eczemia, asthma or other Vital Signs Vital Signs Vital Signs: 05/22/24 20:03 05/22/24 20:04 05/22/24 20:04 Temperature 97.1 F L 97.1 F L Temperature Source Temporal Temporal Pulse Rate 97 97 Respiratory Rate 19 H 20 H Blood Pressure 156/102 H 165/102 H Blood Pressure Mean 120 123 Pulse Ox 98 97 98 Oxygen Delivery Method Room Air Room Air Room Air 05/22/24 20:04 05/22/24 20:34 05/22/24 20:42 Temperature 97.4 F L Temperature Source Pulse Rate 97 91 86 Respiratory Rate 16 16 17 Blood Pressure 142/82 H 142/82 H Blood Pressure Mean 102 102 Pulse Ox 98 98 97 Oxygen Delivery Method Room Air Room Air 05/22/24 21:04 Temperature Temperature Source Pulse Rate 81 Respiratory Rate 17 Blood Pressure 147/85 H Blood Pressure Mean 105 Pulse Ox 98 Oxygen Delivery Method Room Air Weight Weight: 85.4 kg Body Mass Index (BMI) 34.4 Physical Exam Const alert, oriented x3, no apparent distress and well nourished; Negative for average body habitus Constitutional Narrative: Middle-aged, white female, appears that she is feeling ill but not toxic General Appearance: cooperative HEENT normocephalic, head/scalp atraumatic, hearing grossly normal bilaterally and moist oral mucous membranes HEENT Narrative: Mallampati 2, no thrush Eyes EOMs intact bilaterally and conjunctivae normal Eyes Narrative: No scleral icterus Neck no lymphadenopathy, supple, no JVD and no carotid bruits Neck Narrative: Trachea midline, no thyroid enlargement Resp normal respiratory effort, no retractions, no use of accessory muscles and clear to auscultation bilaterally Auscultation: Negative for rales, rhonchi or wheezes Cardio regular rate, regular rhythm, S1 normal heart sound, S2 normal heart sound, no murmurs, no rub, no gallops and no clicks GI normal to inspection, nondistended, normoactive bowel sounds, soft to palpation and non-tender Extremity no clubbing, cyanosis or edema Extremity Narrative: Pedal pulses and radial pulses are 2+ Skin no jaundice, no petechiae and no mottling Neuro oriented x3, CN's II-XII intact bilaterally, moves all extremities and no focal motor deficits Neuro Narrative: Patient without nystagmus Coordination / Balance: [id number] test normal and [id number] test normal Speech: speech normal Motor Exam: strength 5/5 throughout Psych affect normal Psych Narrative: Very pleasant, interacts appropriately Results Lab / Micro Data 05/22/24 20:00 05/22/24 20:00 Labs: Laboratory Results - last 24 hr 05/22/24 20:00: WBC 10.1, RBC 4.63, Hgb 14.1, Hct 40.4, MCV 87.3, MCH 30.5, MCHC 34.9, RDW Std Deviation 42.3, RDW Coeff of Delmis 13.3, Plt Count 286, MPV 10.1, Immature Gran % (Auto) 0.400, Neut % (Auto) 58.3, Lymph % (Auto) 32.2, [place] % (Auto) 6.3, Eos % (Auto) 2.2, Baso % (Auto) 0.6, Absolute Neuts (auto) 5.9, Absolute Lymphs (auto) 3.26, Nucleated RBC % 0, PT 12.5, INR 0.9, APTT 25.4, Sodium 139, Potassium 3.6, Chloride 101, Carbon Dioxide 23.5, Anion Gap 14, BUN 11, Creatinine 0.73, Estim Creat Clear Calc 90.36, Est GFR (MDRD) Non-Af 99, BUN/Creatinine Ratio 14.9, Glucose 124 H, Calcium 9.6, Troponin T High Sens 6 Imaging Radiology Impression Brain CT 05/22/24 20:04 IMPRESSION: No acute intracranial abnormality; no acute infarct, intracranial hemorrhage or extra-axial collection. Reading Location: [facility] Head/Neck CTA 05/22/24 20:04 IMPRESSION: Patent anterior and posterior intracranial and extracranial circulation without hemodynamically significant stenosis. [facility] Assessment & Plan Assessment/Plan (1) Dizziness: PLAN: Plan Acute onset dizziness -Concerning for posterior circulation stroke -Check MRI with and without contrast -NIH as per stroke protocol -Blood pressure management with as needed's per stroke protocol -Check lipid profile -Check hemoglobin A1c -Check echocardiogram -Aspirin 81 mg daily -Atorvastatin 80 mg daily -Therapy consultations -Neurology consultation Nonalcoholic fatty liver disease -Patient with mild to moderate disease -Currently working on diet and exercise with outpatient follow-up pending for repeat elastography DM-2 -A1c 1 year ago was 5.8 -Currently on metformin only but will hold due to contrast -SSI with Accu-Cheks as ordered -Cardiac/carb controlled diet once passed her p.o. diet History of B12 deficiency -Most recently normal History of multinodular goiter -Check TSH Obesity -BMI 34.4 -Recommend weight loss -Complicates treatment, prognosis, outcomes -Patiently currently is participating in exercise program DVT prophylaxis -Subcu enoxaparin daily # -Full code Charges/Coding Visit Charges Inpatient E&M: 29783 Init Hosp L2
[2024-05-22] MEDS: Atorvastatin Calcium 80 MG Tablet PO (22:25)
[2024-05-22 22:39] LABS: Bedside Glucose 139 mg/dL (74-106)
[2024-05-22 23:01] LABS: Troponin T High Sens 2 HR 12 ng/L (<=14)
[2024-05-23 01:38] LABS: Troponin T High Sens 4 HR 10 ng/L (<=14)
[2024-05-23 02:00] VITALS: BP 128/99; PULSE 75; RESP 18; TEMP 36.8; O2SAT 100
[2024-05-23 04:57] LABS: Absolute Lymphocyte Count 3.35 X10^3/uL (0.83-4.51); Absolute Neutrophil Count 5.6 X10^3/uL (2.0-7.7); Basophil# 0.04 X10^3/uL; Basophil% 0.4 % (0-1); Eosinophil# 0.23 X10^3/uL; Eosinophils% 2.3 % (0-5); Hematocrit 39.6 % (37-47); Hemoglobin 13.6 g/dL (12.0-15.0); Lymphocyte # 3.35 X10^3/ul (0.83-4.51); Lymphocyte % 34.1 % (19-41); Mean Corp Hgb Conc 34.3 g/dL (32-36); Mean Corpuscular Hgb 29.9 pg (27.0-32.0); Mean Platelet Vol. 10.3 fl (6.2-12.0); Monocyte# 0.54 X10^3/uL; Monocyte% 5.5 % (0-10); NRBC Flagged by Analyzer 0 % (0-5); Neutrophil # 5.63 X10^3/uL (2.7-7.7); Neutrophil % 57.4 % (47-70); Platelet Count 289 K/mm3 (150-450); RBC Distribution Width CV 13.4 % (11.6-14.6); RBC Distribution Width SD 42.4 fl (35.1-43.9); Red Blood Count 4.55 M/mm3 (4.2-5.4); White Blood Count 9.8 K/mm3 (4.4-11.0)
[2024-05-23 05:00] VITALS: BMI 33.5
[2024-05-23 05:21] LABS: Phosphorus 4.2 mg/dL (2.7-4.5)
[2024-05-23 05:36] LABS: ALB/GLOB Ratio 1.6 RATIO (0.9-2.4); AST(SGOT) 17 U/L (<=31); Alanine Aminotransfer ALT/SGPT 13 U/L (<=34); Albumin, Serum 4.1 g/dL (3.5-5.0); Alkaline Phosphatase 64 U/L (35-104); Anion Gap 12 (5-15); BUN 10 mg/dL (4-19); BUN/Creat Ratio 12.9 RATIO (10-20); Calcium,Total 9.4 mg/dL (7.6-11.0); Carbon Dioxide 22.3 mmol/L (21.0-32.0); Chloride 104 mmol/L (98-108); Creatinine, Serum 0.76 mg/dL (0.70-1.20); EST Glomerular Filtration Rate 93 (>60); Estimated Creatinine Clearance 85.49 ml/min (50-250); Globulin 2.6 g/dL (2.2-4.2); Glucose 108 mg/dL (70-99); Magnesium 2.2 mg/dL (1.5-2.2); Potassium 3.6 mmol/L (3.3-5.1); Protein, Total 6.8 g/dL (5.9-8.4); Sodium Level 138 mmol/L (133-145); Total Bilirubin 0.37 mg/dL (0.00-1.30)
[2024-05-23 06:00] VITALS: BP 117/68; PULSE 73; RESP 18; TEMP 36.1; O2SAT 100
--- NOTE | 2024-05-23 06:00 | MRI_ITS ---
PROCEDURE: BRAIN W/WO CONTRAST (MRIBRWW), 05/23/2024 REASON FOR EXAM: ACUTE DIZZINESS COMPARISON: 05/22/2024 TECHNIQUE: Multisequence multiplanar MRI brain was performed with and without intravenous contrast. Contrast: 17 mL Clariscan. FINDINGS: Cerebrum: No acute infarct, mass, or appreciable intracranial hemorrhage. Prominent perivascular spaces/cystic changes in the [id number]-LEFT hippocampi, doubtful clinical significance, favor hippocampal sulcal remnant cysts, normal variant. Cerebellum: Unremarkable. Brainstem: Unremarkable. Ventricles/extra-axial spaces: Unremarkable. Major flow voids: Grossly unremarkable, better evaluated previously. Paranasal sinuses: Unremarkable. Scalp/calvarium: Unremarkable. Orbits: Discordant gaze noted with lateral deviation of the RIGHT globe. Otherwise grossly unremarkable within limits of nondedicated technique. Other: No abnormal enhancement. MRI/Brain W/WO Contrast IMPRESSION: 1. No specific evidence of an acute intracranial process. 2. Additional description as above. Reading Location: [id number]
[2024-05-23] MEDS: Acetaminophen 325 MG Tablet 650 MG PO (06:12)
[2024-05-23] MEDS: Ondansetron 4 MG/2 ML Vial IV (06:15)
[2024-05-23] MEDS: 0.9% Saline Lock 10 ML Syringe IV ×2 (06:15→06:53)
[2024-05-23 06:23] LABS: Hemoglobin A1c 5.8 % (<=5.6)
[2024-05-23 06:24] LABS: Cholesterol 207 mg/dL (<=200); High Density Lipoprotein 70 mg/dL; Low Density Lipoprotein Calc. 115 mg/dL; Triglycerides 107 mg/dL; Very Low Density Lipoprotein 21 mg/dL (5-40); cholesterol:hdl ratio screen 2.95
[2024-05-23 06:41] LABS: Bedside Glucose 111 mg/dL (74-106)
[2024-05-23] MEDS: proCHLORPERazine 10 MG/2 ML Vial IV (06:53)
[2024-05-23] MEDS: DiphenhydrAMINE 50 MG/ML Syringe 25 MG IV (06:54)
[2024-05-23 07:15] VITALS: O2SAT 98
[2024-05-23 09:02] VITALS: BP 108/78; PULSE 78; RESP 16; TEMP 36.6; O2SAT 98
[2024-05-23] MEDS: Aspirin 81 MG TAB.CHEW PO (09:04)
[2024-05-23 12:22] VITALS: BP 124/85; PULSE 78; RESP 16; TEMP 36.6; O2SAT 98
[2024-05-23 12:50] LABS: Bedside Glucose 115 mg/dL (74-106)
[2024-05-23 13:04] VITALS: BMI 33.5
--- NOTE | 2024-05-23 15:53 | CON.PCM.NE_ITS ---
Assessment and Plan: Stroke Assessment/Plan Highest suspicion for benign positional vertigo given waxing/waning onset, positional worsening, few vascular risk factors, and full symptom resolution with negative MRI. Complex migraine is also a possibility. Low suspicion for brainstem stroke. Recommend giving information on the Pitcairn-hallpike maneuver in case of recurrence. Warned of symptoms of a stroke and to come to the ED immediately if she has acute neurological symptoms. HPI Consult Data Date of Consult: 05/23/24 HPI Narrative HPI Narrative: JOHAN PERDOMO is a 53 F with a history of prediabetes, occasional migraines (2x per year). 05/22/24 acute vertigo and nausea. NIHSS 0. Never had similar symptoms previously. Later developed a headache. Vertigo worse w/ standing. Telestroke eval completed, no emergent treatment. CT/CTA/MRI negative. CTA w/ R GAMBLING MONITOR and prominent L Pcomm (normal variants) but otherwise unremarkable. LDl 115, A1c 5.8%. [facility] Medical History Vitamin B 12 deficiency Post-menopausal Wears glasses History of renal disease Fatty liver Dietary restriction Non-smoker Kidney stone Multinodular goiter Diabetes Home Medications ?Medication ?Instructions ?Recorded ?Last Taken ?Type metformin 500 mg tablet,extended 1,000 mg PO DAILY 10/08 Unknown History release 24 hr Allergy/AdvReac Type Severity Reaction Status Date / Time pork derived (porcine) Allergy Intermediate unknown Verified 05/22/24 20:13 Family History Father High cholesterol Heart disease Myocardial infarction, Onset Age: 74 Cancer skin Grandfather Colon cancer Grandmother Heart disease Daughter Autoimmune disease Mother Cancer skin Hypertension Surgical History History of bunionectomy of right great toe history uterine ablation History of Social History (Updated 05/22/24 @ 21:[address] 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 [employer] Smoking Status: Never smoker alcohol intake: current alcohol intake frequency: holidays/special occasions only substance use type: does not use diet: diabetic what type of physical activity do you participate in: walking and bicycling frequency: 5-6 times per week duration: 45-60 minutes/day seatbelt use: always do you feel safe at home: Yes additional social history: -[employer] Vital Signs Vital Signs Vital Signs: 05/22/24 20:03 05/22/24 20:04 05/22/24 20:04 Temperature 97.1 F L 97.1 F L Temperature Source Temporal Temporal Pulse Rate 97 97 Pulse Strength Respiratory Rate 19 H 20 H Respiratory Effort Respiratory Depth Respiratory Pattern Blood Pressure 156/102 H 165/102 H Blood Pressure Mean 120 123 Blood Pressure Source Blood Pressure Position Blood Pressure Location Pulse Ox 98 97 98 Oxygen Delivery Method Room Air Room Air Room Air 05/22/24 20:04 05/22/24 20:34 05/22/24 20:42 Temperature 97.4 F L Temperature Source Pulse Rate 97 91 86 Pulse Strength Respiratory Rate 16 16 17 Respiratory Effort Respiratory Depth Respiratory Pattern Blood Pressure 142/82 H 142/82 H Blood Pressure Mean 102 102 Blood Pressure Source Blood Pressure Position Blood Pressure Location Pulse Ox 98 98 97 Oxygen Delivery Method Room Air Room Air 05/22/24 21:04 05/22/24 21:30 05/22/24 22:00 Temperature 97.9 F Temperature Source Temporal Pulse Rate 81 81 80 Pulse Strength Respiratory Rate 17 20 H 16 Respiratory Effort Respiratory Depth Respiratory Pattern Blood Pressure 147/85 H 131/82 H 140/90 H Blood Pressure Mean 105 98 106 Blood Pressure Source Monitor Blood Pressure Position Semi-Fowlers Blood Pressure Location Left Arm Pulse Ox 98 98 98 Oxygen Delivery Method Room Air Room Air Room Air 05/22/24 22:00 05/22/24 22:00 05/22/24 23:17 Temperature Temperature Source Pulse Rate Pulse Strength Normal (2+) Respiratory Rate Respiratory Effort Normal Non-Labored Respiratory Depth Normal Respiratory Pattern Normal Blood Pressure Blood Pressure Mean Blood Pressure Source Blood Pressure Position Blood Pressure Location Pulse Ox 99 Oxygen Delivery Method Room Air Room Air 05/23/24 02:00 05/23/24 02:00 05/23/24 06:00 Temperature 98.2 F 96.9 F L Temperature Source Oral Temporal Pulse Rate 75 73 Pulse Strength Respiratory Rate 18 18 Respiratory Effort Normal Non-Labored Respiratory Depth Normal Respiratory Pattern Normal Blood Pressure 128/99 H 117/68 Blood Pressure Mean 108 84 Blood Pressure Source Monitor Monitor Blood Pressure Position Supine Supine Blood Pressure Location Right Arm Right Arm Pulse Ox 100 100 Oxygen Delivery Method Room Air Room Air Room Air 05/23/24 07:15 05/23/24 09:00 05/23/24 09:02 Temperature 97.9 F Temperature Source Oral Pulse Rate 78 Pulse Strength Normal (2+) Respiratory Rate 16 Respiratory Effort Respiratory Depth Respiratory Pattern Blood Pressure 108/78 Blood Pressure Mean 88 Blood Pressure Source Monitor Blood Pressure Position Semi-Fowlers Blood Pressure Location Right Arm Pulse Ox 98 98 Oxygen Delivery Method Room Air Room Air 05/23/24 12:22 Temperature 97.9 F Temperature Source Oral Pulse Rate 78 Pulse Strength Respiratory Rate 16 Respiratory Effort Respiratory Depth Respiratory Pattern Blood Pressure 124/85 H Blood Pressure Mean 98 Blood Pressure Source Monitor Blood Pressure Position Semi-Fowlers Blood Pressure Location Right Arm Pulse Ox 98 Oxygen Delivery Method Room Air Weight Weight: 83 kg Body Mass Index (BMI) 33.5 EEG Results Procedure Details EEG Procedure Details: JOHAN PERDOMO is a 53 year old F with a past medical history of , who presents for evaluation of Electroencephalogram on DATE at TIME NIHSS NIHSS Nursing Documentation NIHSS Nursing Documentation: NIHSS: Ischemic Stroke/TIA Start: 05/22/24 21:53 Text: For PCU Patients: NIH and Neuro Check every 4 Status: Active hours, PRN and with change in RN caregiver. Freq: [id number] Protocol: Activity Type Activity Date Activity User E-sign Co-sign Detail Recorded Client Recorded Date Recorded By Document 05/23/24 12:22 [id number] 05/23/24 12:22 05/23/24 12:22 NIH Stroke Scale [NIHSS] A score of 0 is normal or asymptomatic . Total possible score is 42. Inpatient: RN or Physician to activate a stroke alert for onset of new stroke symptoms or with NIHSS increase >/= 3 points. Following change in neurological status, NIHSS will be performed per physician order or more frequently PRN. -1a. Level of Consciousness Alert; keenly responsive -1b. LOC Questions Answers BOTH questions correctly. -1c. LOC Commands Performs both tasks correctly . -2. Best Gaze Normal -3. Visual No visual loss -4. Facial Palsy Normal symmetrical movements -5a. Left Arm No drift; arm holds 90 (or 45 ) degrees for full 10 seconds -5b. Right Arm No drift; arm holds 90 (or 45 ) degrees for full 10 seconds -6a. Left Leg No drift; leg holds 30-degree position for full 5 seconds -6b. Right Leg No drift; leg holds 30-degree position for full 5 seconds -7. Limb Ataxia Absent -8. Sensory Normal; no sensory loss -9. Best Language No aphasia; normal -10. Dysarthria Normal -11. Extinction and Inattention No abnormality -Total 0 Query Text:A score of 0 is normal or asymptomatic. Total possible score is 42 . ED: Notify Physician for NIHSS increase by > / = 3 points. Inpatient: RN or Physician to activate a stroke alert for NIHSS increase of > / = 3 points. Coma Scale [Assess] -Eye Opening Spontaneous -Motor Obeys Commands -Verbal Oriented [Total] -Coma Scale Total 15 Physical Exam Narrative EOMI. No ataxia. No focal neurological deficits. NIHSS 0. Lab / Micro Data 05/23/24 04:12 05/23/24 04:12 Labs: Laboratory Results - last 24 hr 05/22/24 20:00: WBC 10.1, RBC 4.63, Hgb 14.1, Hct 40.4, MCV 87.3, MCH 30.5, MCHC 34.9, RDW Std Deviation 42.3, RDW Coeff of Delmis 13.3, Plt Count 286, MPV 10.1, Immature Gran % (Auto) 0.400, Neut % (Auto) 58.3, Lymph % (Auto) 32.2, [place] % (Auto) 6.3, Eos % (Auto) 2.2, Baso % (Auto) 0.6, Absolute Neuts (auto) 5.9, Absolute Lymphs (auto) 3.26, Nucleated RBC % 0, PT 12.5, INR 0.9, APTT 25.4, Sodium 139, Potassium 3.6, Chloride 101, Carbon Dioxide 23.5, Anion Gap 14, BUN 11, Creatinine 0.73, Estim Creat Clear Calc 90.36, Est GFR (MDRD) Non-Af 99, BUN/Creatinine Ratio 14.9, Glucose 124 H, Calcium 9.6, Troponin T High Sens 6 05/22/24 22:14: POC Glucose 139 H 05/22/24 22:37: Troponin T Hi Sens 2 Hr 12 05/23/24 00:47: Troponin T Hi Sens 4Hr 10 05/23/24 04:12: WBC 9.8, RBC 4.55, Hgb 13.6, Hct 39.6, MCV 87.0, MCH 29.9, MCHC 34.3, RDW Std Deviation 42.4, RDW Coeff of Delmis 13.4, Plt Count 289, MPV 10.3, Immature Gran % (Auto) 0.300, Neut % (Auto) 57.4, Lymph % (Auto) 34.1, [place] % (Auto) 5.5, Eos % (Auto) 2.3, Baso % (Auto) 0.4, Absolute Neuts (auto) 5.6, Absolute Lymphs (auto) 3.35, Nucleated RBC % 0, Sodium 138, Potassium 3.6, Chloride 104, Carbon Dioxide 22.3, Anion Gap 12, BUN 10, Creatinine 0.76, Estim Creat Clear Calc 85.49, Est GFR (MDRD) Non-Af 93, BUN/Creatinine Ratio 12.9, G lucose 108 H, Hemoglobin A1c 5.8, Calcium 9.4, Phosphorus 4.2, Magnesium 2.2, Total Bilirubin 0.37, AST 17, ALT 13, Alkaline Phosphatase 64, Total Protein 6.8, Albumin 4.1, Globulin 2.6, Albumin/Globulin Ratio 1.6, Triglycerides 107, C holesterol 207 H, LDL Cholesterol, Calc 115, VLDL Cholesterol 21, HDL Cholesterol 70, Cholesterol/HDL Ratio 2.95, TSH 1.160 05/23/24 06:10: POC Glucose 111 H 05/23/24 12:24: POC Glucose 115 H Imaging Radiology Impression Brain CT 05/22/24 20:04 IMPRESSION: No acute intracranial abnormality; no acute infarct, intracranial hemorrhage or extra-axial collection. Reading [facility] Head/Neck CTA 05/22/24 20:04 IMPRESSION: Patent anterior and posterior intracranial and extracranial circulation without hemodynamically significant stenosis. Reading Location[facility] Chest X-Ray 05/22/24 20:41 IMPRESSION: No Acute Findings. Reading Location: [facility] Brain MRI 05/23/24 06:00 IMPRESSION: 1. No specific evidence of an acute intracranial process. 2. Additional description as above. Reading Location: [id number] Active Medications Active Medications Active Medications: Current Medications Generic Name Dose Route Start Last Admin Trade Name Freq PRN Reason Stop Dose Admin Acetaminophen 650 mg 05/22/24 21:53 05/23/24 06:12 Acetaminophen 325 Mg Tablet PO 650 mg Q4H PRN PRN Administration Pain 1-10 Or Fever>99.6 Aspirin 81 mg 05/23/24 08:00 05/23/24 09:04 Aspirin 81 Mg Tab.Chew PO 81 mg BREAKFAST SONAM Administration Atorvastatin Calcium 80 mg 05/22/24 22:00 05/22/24 22:25 Atorvastatin Calcium 80 Mg Tablet PO 80 mg QHS SONAM Administration Diazepam 2 mg 05/22/24 21:56 Diazepam 2 Mg Tablet PO TID PRN PRN DIZZINESS Enoxaparin Sodium 40 mg 05/23/24 10:00 05/23/24 12:26 Enoxaparin 40 Mg/0.4 Ml Syringe SC Not Given DAILY SONAM Glucagon 1 mg 05/22/24 21:53 Glucagon 1 Mg/Ml Syringe IM X1 PRN HYPOGLYCEMIA Protocol Hydralazine HCl 5 mg 05/22/24 21:53 Hydralazine 20 Mg/Ml Vial IV 05/23/24 21:53 Q30M PRN maintain BP parameters with HR <60 Dextrose 250 mls @ 0 mls/hr 05/22/24 21:53 Dextrose 10%-Water IV .Q0M PRN HYPOGLYCEMIA Protocol As Directed Ibuprofen 400 mg 05/22/24 21:53 Ibuprofen 400 Mg Tablet PO Q4H PRN PRN Pain 1-10 Or Fever >100.7 Insulin Human Lispro 0 unit 05/22/24 22:00 05/23/24 12:26 Insulin Lispro 100 Unit/Ml Insuln.Pen SC Not Given ACHS SONAM Protocol Labetalol HCl 10 - 20 mg 05/22/24 21:53 Labetalol 20mg/4ml Syringe IV 05/23/24 21:53 Q10M PRN PRN maintain BP parameters with HR >/=60 Ondansetron HCl 4 mg 05/22/24 21:53 05/23/24 06:15 Ondansetron 4 Mg/2 Ml Vial IV 4 mg Q8H PRN PRN Administration NAUSEA/VOMITING Senna/Docusate Sodium 2 tablet 05/22/24 21:53 Senna/Docusate Sodium 1 Tablet PO BID PRN PRN Constipation Sodium Chloride 10 - 40 ml 05/22/24 22:06 05/23/24 06:53 0.9% Saline Lock 10 Ml Syringe IV 10 ml UD PRN Administration SALINE FLUSH
--- NOTE | 2024-05-23 16:08 | CASEMGMT ---
Patient to discharge home today. RN CM in to discuss needs at discharge. Patient denies needs or help at discharge. Patient had no further questions or concerns.
[2024-05-23 16:22] VITALS: BP 121/74; PULSE 91; RESP 16; TEMP 36.7; O2SAT 99
--- NOTE | 2024-05-23 16:31 | DS.PCM_ITS ---
Providers Date of Admission: 05/22/24 Date of Discharge: 05/23/24 Primary Care Physician: YIMI Peterson Consultations 05/22/24 21:53 Consult: Tele-Neurology Routine Consulting Provider: [facility] Reason for Consult: Acute Ischemic Stroke/TIA EMERGENT Consult: No MD Notified: Yes Date Notified: 05/22/24 Time Notified: 22:53 Method of Notification: ED Physician Initiated Nursing Unit Staff Notify [facility] of Tele-Neurology Consult: Yes Reason For Visit: ACUTE DIZZINESS & NAUSEA Diagnosis Discharge Diagnosis (1) Dizziness: Status: Acute Code(s): R42 - Dizziness and giddiness Medications at Discharge Home Medications metformin 500 mg tablet,extended release 24 hr 1,000 mg PO DAILY 05/22/24 Hospital Course Procedures EKG and - (Chest x-ray/CT brain/CTA head neck/MRI brain) Summary of Care Provided Minutes Spent on Discharge: 38 Hospital Course: Mrs. Cochran, is a 53 F who presented to the emergency department at [facility] on 05/22/2024 with a chief complaint of acute onset dizziness that started at 4 PM. Patient states she was working her regular day and felt fine in the morning. About 1600 she started having a swimming sensation in her head that slowly progressed to dizziness associated with nausea that was fairly persistent by 1830.. She denies any tingling numbness or weakness in extremity and had no other associated symptoms. At the time of my evaluation she was complaining of a mild headache but was otherwise feeling better after being given Zofran and 5 mg Valium in the emergency department. Given her persistent dizziness that was severe with nausea a stroke team was called by the emergency department physician. She denies having anything like this previously. Vital signs on presentation demonstrated temperature of 97.1, heart rate 97, blood pressure was 156/102, respiratory rate was 19 and pulse ox was 98% on room air. CBC was unremarkable. Coags were normal. Chemistry panel was normal other than mild hyperglycemia with a blood glucose level of 124 and patient is a known diabetic. Troponin was 6. EKG was unremarkable with normal intervals and no ST-T wave changes concerning for acute ischemia, chest x-ray was unremarkable for any acute findings, CT of the brain was unremarkable for acute findings, CTA of the head and neck was unremarkable for acute findings. Given persistent dizziness and nausea. Patient was given Zofran and Valium. She was evaluated by stroke neurologist tenecteplase was not recommended and no LVO was present. Admission for MRI and stroke workup was recommended. She was admitted to PCU and underwent stroke order set monitoring. NIH is were 0 throughout her entire hospitalization. Her vertigo slowly improved and then she developed a headache. For her headache, she was given Compazine and Benadryl on the morning of 05/23/2024. With this treatment, her headache resolved. Vertigo resolved and her nausea resolved. She had an MRI of her brain which was completely benign. She was evaluated by neurology in the differential was BPPV which I think is less likely given her symptoms at the time of presentation were not really very positional versus complex migraine which at this point I think is more likely given her headache following her some vestibular symptoms. Total cholesterol was 207 with an LDL of 115/HDL of 70. Triglycerides were 107. TSH was 1.16. Hemoglobin A1c was 5.8. Given her negative MRI and resolution of her symptoms she was able to be discharged home on 05/23/2024. No medication changes were made at this time. We did discuss potentially the initiation of a statin however she would like 6 months to try diet and exercise and then be reassessed. We did discuss that ideally with her family history goal of less than 70 would be more ideal. She is to follow-up with her PCP as needed. Discharge diagnoses: Vestibular/complex migraine Vertigo-resolved Nausea-resolved Headache-resolved DM-2 Nonalcoholic fatty liver disease History of B12 deficiency History of multinodular goiter Obesity Physical Exam Const alert, oriented x3, no apparent distress, no limitations, healthy appearing and well nourished; Negative for average body habitus Constitutional Narrative: Middle-aged, white female, appears comfortable, nontoxic, much improved General Appearance: cooperative, comfortable, well kempt and well developed Exam Limitations: no limitations HEENT normocephalic, head/scalp atraumatic, hearing grossly normal bilaterally and moist oral mucous membranes HEENT Narrative: Mallampati 2, no thrush Eyes EOMs intact bilaterally and conjunctivae normal Eyes Narrative: No scleral icterus Neck supple Neck Narrative: Trachea midline, no thyroid enlargement Resp normal respiratory effort, no retractions, no use of accessory muscles and clear to auscultation bilaterally Auscultation: Negative for rales, rhonchi or wheezes Cardio regular rate, regular rhythm, S1 normal heart sound, S2 normal heart sound, no murmurs, no rub, no gallops and no clicks GI normal to inspection, nondistended, normoactive bowel sounds, soft to palpation and non-tender Extremity no clubbing, cyanosis or edema Extremity Narrative: Pedal pulses and radial pulses are 2+ Skin no jaundice, no petechiae and no mottling Neuro oriented x3, moves all extremities and no focal motor deficits Neuro Narrative: Able to ambulate independently Speech: speech normal Psych affect normal Psych Narrative: Very pleasant, interacts appropriately Weight / BMI Weight Weight: 83 kg Body Mass Index (BMI) 33.5 ABG / Lab / Microbiology Data 05/23/24 04:12 05/23/24 04:12 Laboratory: Laboratory Results - last 24 hr 05/22/24 20:00: WBC 10.1, RBC 4.63, Hgb 14.1, Hct 40.4, MCV 87.3, MCH 30.5, MCHC 34.9, RDW Std Deviation 42.3, RDW Coeff of Delmis 13.3, Plt Count 286, MPV 10.1, Immature Gran % (Auto) 0.400, Neut % (Auto) 58.3, Lymph % (Auto) 32.2, [place] % (Auto) 6.3, Eos % (Auto) 2.2, Baso % (Auto) 0.6, Absolute Neuts (auto) 5.9, Absolute Lymphs (auto) 3.26, Nucleated RBC % 0, PT 12.5, INR 0.9, APTT 25.4, Sodium 139, Potassium 3.6, Chloride 101, Carbon Dioxide 23.5, Anion Gap 14, BUN 11, Creatinine 0.73, Estim Creat Clear Calc 90.36, Est GFR (MDRD) Non-Af 99, BUN/Creatinine Ratio 14.9, Glucose 124 H, Calcium 9.6, Troponin T High Sens 6 05/22/24 22:14: POC Glucose 139 H 05/22/24 22:37: Troponin T Hi Sens 2 Hr 12 05/23/24 00:47: Troponin T Hi Sens 4Hr 10 05/23/24 04:12: WBC 9.8, RBC 4.55, Hgb 13.6, Hct 39.6, MCV 87.0, MCH 29.9, MCHC 34.3, RDW Std Deviation 42.4, RDW Coeff of Delmis 13.4, Plt Count 289, MPV 10.3, Immature Gran % (Auto) 0.300, Neut % (Auto) 57.4, Lymph % (Auto) 34.1, [place] % (Auto) 5.5, Eos % (Auto) 2.3, Baso % (Auto) 0.4, Absolute Neuts (auto) 5.6, Absolute Lymphs (auto) 3.35, Nucleated RBC % 0, Sodium 138, Potassium 3.6, Chloride 104, Carbon Dioxide 22.3, Anion Gap 12, BUN 10, Creatinine 0.76, Estim Creat Clear Calc 85.49, Est GFR (MDRD) Non-Af 93, BUN/Creatinine Ratio 12.9, G lucose 108 H, Hemoglobin A1c 5.8, Calcium 9.4, Phosphorus 4.2, Magnesium 2.2, Total Bilirubin 0.37, AST 17, ALT 13, Alkaline Phosphatase 64, Total Protein 6.8, Albumin 4.1, Globulin 2.6, Albumin/Globulin Ratio 1.6, Triglycerides 107, C holesterol 207 H, LDL Cholesterol, Calc 115, VLDL Cholesterol 21, HDL Cholesterol 70, Cholesterol/HDL Ratio 2.95, TSH 1.160 05/23/24 06:10: POC Glucose 111 H 05/23/24 12:24: POC Glucose 115 H 05/23/24 16:20: POC Glucose 162 H Radiography Diagnostic Testing: Radiology Impression Brain CT 05/22/24 20:04 IMPRESSION: No acute intracranial abnormality; no acute infarct, intracranial hemorrhage or extra-axial collection. Reading Location: [facility] Head/Neck CTA 05/22/24 20:04 IMPRESSION: Patent anterior and posterior intracranial and extracranial circulation without hemodynamically significant stenosis. Reading Location: [facility] Chest X-Ray 05/22/24 20:41 IMPRESSION: No Acute Findings. Reading Location: [facility] Brain MRI 05/23/24 06:00 IMPRESSION: 1. No specific evidence of an acute intracranial process. 2. Additional description as above. Reading Location: [id number]/C Instructions Discharge Diet: 2000 Calorie Control Diet Discharge Activity: Return to Normal Activity and May Drive Return to work on: 05/24/24 May resume sexual activity in: No Restrictions DC O2, CPAP, BIPAP Needs Home O2 Discharge instructions: No DC home with Oxygen: No Meaningful Use Info Meaningful Use Meaningful Use Diagnoses (Choose all that apply): None applicable Ischemic Stroke Statin Dosing Therapy Reference: STATIN DOSE THERAPY REFERENCE: * Patients > 75 years receive moderate or high dose statin therapy. * Patients 75 years or YOUNGER should receive HIGH intensity statin dose unless contraindicated. You will be required to document reason for non-treatment if statin daily dose does not meet guidelines. HIGH DOSE STATIN THERAPY DAILY Atorvastatin > than or = to 40 mg Rosuvastatin > than or = to 20 mg Amlodipine + Atorvastatin > than or = to 2.5/40 mg Ezetimibe + Simvastatin 10/80 mg Simvastatin 80mg Discharge Plan Admission Admit Date/Time: 05/22/24 21:01 Primary Reason for Your Visit: Vertigo with nausea Attending Provider: Nancy Cruz Primary Care Provider: Pascale Connell Consulting Providers: Darryl Coles; Ruth Alexandra; Nurys Pompa; Olivia Sood; Fina Fernandez; Raheem Beaver; Cindy Pinon; Hung Mcdowell; Liban Miller; Kanu Perez; Keyla Parks; Ryan Langston; Kayla Zee; Luh Tompkins; Martha Webb; Fletcher Reeves; Evgeny Peace; Romeo Carvajal; Sweta Cruz; Sage Carroll Discharge Orders/Prescriptions Prescriptions: Continued metformin 500 mg tablet extended release 24 hr 1,000 mg PO DAILY Referrals / Follow Up: Pascale Connell, ISAAK-C [Primary Care Provider] - See Referral Note (As needed) Disposition Disposition (needs filled in before D/C Order can be placed): Home, Self Care Charges/Coding Visit Charges Inpatient E&M: 52587 Disch Hosp >30min
[2024-05-23 16:46] LABS: Bedside Glucose 162 mg/dL (74-106)
[2024-05-23 19:25] LABS: Bedside Glucose 124 mg/dL (74-106)
== END 2024-05-23 17:14 | disposition home or self-care (01) ==
LOC: ED 21:03 → PCU 21:29
PROVIDERS: Admitting Provider Internal Medicine; Emergency Provider Emergency Medicine; PCP Nurse Practitioner; Visit Provider Internal Medicine
DX: G43.809 Other migraine, not intractable, without status migrainosus (principal); E11.65 Type 2 diabetes mellitus with hyperglycemia; K76.0 Fatty (change of) liver, not elsewhere classified; E66.9 Obesity, unspecified; Z68.34 Body mass index [BMI] 34.0-34.9, adult; R42 Dizziness and giddiness; Z79.84 Long term (current) use of oral hypoglycemic drugs
CPT/HCPCS: 36415; 70450; 70496; 70498; 70553; 71045; 80048; 80053; 80061; 82962; 83036; 83735; 84100; 84443; 84484; 85025; 85610; 85730; 93005; 94668; 96374; 96375; 96376; 99221; 99285; A9575; Q9967; A4216; G0378; J2405

== ENCOUNTER → 2024-12-21 | Outpatient (CLI) | payer OTHER, SELFPAY ==
[2024-12-21 09:49] LABS: Hematocrit 42.7 % (37-47); Hemoglobin 14.5 g/dL (12.0-15.0); Immature Granulocytes Count 0.010 X10^3/uL (0.0-0.0); Mean Corp Hgb Conc 34.0 g/dL (32-36); Mean Corpuscular Volume 89.0 fL (81-99); Mean Platelet Vol. 10.4 fl (6.2-12.0); NRBC Flagged by Analyzer 0 % (0-5); Platelet Count 263 K/mm3 (150-450); RBC Distribution Width CV 12.9 % (11.6-14.6); RBC Distribution Width SD 41.8 fl (35.1-43.9); Red Blood Count 4.80 M/mm3 (4.2-5.4); White Blood Count 6.9 K/mm3 (4.4-11.0)
[2024-12-21 10:31] LABS: AST(SGOT) 14 U/L (<=31); Alanine Aminotransfer ALT/SGPT 13 U/L (<=34); Albumin, Serum 4.6 g/dL (3.5-5.0); Alkaline Phosphatase 61 U/L (35-104); Anion Gap 10 (5-15); BUN 18 mg/dL (4-19); BUN/Creat Ratio 23.2 RATIO (10-20); Calcium,Total 9.7 mg/dL (7.6-11.0); Carbon Dioxide 26.1 mmol/L (21.0-32.0); Chloride 104 mmol/L (98-108); Cholesterol 226 mg/dL (<=200); Globulin 2.8 g/dL (2.2-4.2); Glucose 119 mg/dL (70-99); Low Density Lipoprotein Calc. 143 mg/dL; Potassium 4.4 mmol/L (3.3-5.1); Triglycerides 86 mg/dL; Very Low Density Lipoprotein 17 mg/dL (5-40); cholesterol:hdl ratio screen 3.32
[2024-12-21 10:36] LABS: Follicle Stimulating Hormone 90.9 mIU/mL; Vitamin D,25 Hydroxy 42.8 ng/mL (30-100)
[2024-12-24 23:07] LABS: Anti-Mullerian Hormone,Serum < 0.015 ng/mL (.)
== END | disposition home or self-care (01) ==
LOC: LAB 09:18
PROVIDERS: PCP Nurse Practitioner; Referring Provider Nurse Practitioner Family; Visit Provider Nurse Practitioner Family
DX: N95.1 Menopausal and female climacteric states (principal)
CPT/HCPCS: 36415; 80053; 80061; 82306; 82670; 83001; 83036; 83516; 84439; 84443; 85025

== ENCOUNTER → 2025-01-04 | Outpatient (CLI) | payer OTHER, SELFPAY ==
--- NOTE | 2025-01-04 13:45 | BI_ITS ---
EXAM: SCRN MAMM (CAD)W/LIZA BILAT DATE: 01/04/2025 CLINICAL HISTORY: F, Age 54 y/o , SCREEN FOR BREAST CANCER TECHNIQUE: Procedure Code: [id number] Modality: MG Procedure: SCRN MAMM (CAD)W/LIZA BILAT COMPARISON: Prior exam(s) were compared FINDINGS: TISSUE DENSITY: The breasts are heterogeneously dense, which may obscure small masses. Bilateral Breast Mammographic Findings: No significant masses, calcifications or other abnormalities are identified. BI/SCRN MAMM (CAD)W/LIZA BILAT IMPRESSION: No mammographic evidence of malignancy in either breast. OVERALL FINAL ASSESSMENT BI-RADS 1: NEGATIVE. RECOMMENDATION: Routine annual follow-up in 1 Year Additional Recommendation none A letter with findings and recommendations will be mailed to the patient. Reading Location: [id number]
== END | disposition home or self-care (01) ==
LOC: OPBI 13:47
PROVIDERS: PCP Nurse Practitioner; Referring Provider Nurse Practitioner Family; Visit Provider Nurse Practitioner Family
DX: Z12.31 Encounter for screening mammogram for malignant neoplasm of breast (principal)
CPT/HCPCS: 77063; 77067